=== PATIENT | male | born 1935 | race Caucasian/White ===

== ENCOUNTER 2016-12-29 04:50 | Inpatient (IN) | payer OTHER ==
[~2016-12-29] VITALS: Ht 188 cm; Wt 91.2 kg
[~2016-12-29 04:50] MED LIST: ACET-1087 PO; ASPI-1093 PO; ATI.5 PO; DONE5TAB2 PO; FERR-193 PO; IBUP-974 PO; MEMA10TA PO; PANT40EC PO; POTA10TA10 PO; SACC250C4 PO; SULF-58 PO; ZYL300 PO; [UNRECOGNIZED DRUG - CODE] PO
--- NOTE | 2016-12-29 04:50 | NUR ---
Patient was BIBA and taken to bed 04 via gurney per EMS.
[2016-12-29] MEDS ORDERED: NACL 0.9% 1,000 ML IV ONE ×2 (05:05→05:40)
--- NOTE | 2016-12-29 05:32 | NUR ---
PATIENT JC FROM [facility] PRESENTS TO ED WITH N/V/D . [facility] REPORTS NUMEROUS PATIENTS WITH N/V/D SINCE EARLY THIS MORNING . SKIN IS PINK/WARM/DRY; AAOX4 WITH EVEN AND STEADY GAIT; LUNGS CLEAR BL; HR EVEN AND REGULAR; PT DENIES ANY FEVER, CP, SOB, OR COUGH AT THIS TIME; PATIENT STATES PAIN OF 0/10 AT THIS TIME; VSS; PATIENT POSITIONED FOR COMFORT; HOB ELEVATED; BEDRAILS UP X2; BED DOWN. ER MD MADE AWARE OF PT STATUS.
[2016-12-29 05:34] VITALS: BP 137/57
[2016-12-29 05:38] LABS: HEMATOCRIT 39.3 % (36-52); HEMOGLOBIN 13.1 g/dL (12.0-18.0); MEAN CORPUSCULAR HEMOGLOBIN 32 pg (27-31); MEAN CORPUSCULAR HGB CONC 33 g/dL (33-37); MEAN CORPUSCULAR VOLUME 97 fL (80-94); PLATELET COUNT (AUTO) 228 K/uL (140-450); RED BLOOD CELL COUNT(AUTO) 4.07 MIL/uL (4.20-6.10); RED CELL DISTRIBUTION WIDTH 14.3 % (11.6-13.7); WHITE BLOOD COUNT (AUTO) 9.4 K/uL (4.8-10.8)
[2016-12-29] MEDS ORDERED: ONDANSETRON 4 MG/2 ML VIAL IVP ONE (05:40)
[2016-12-29] MEDS ORDERED: KETOROLAC 30 MG/ML VIAL IVP ONE (05:40)
[2016-12-29 06:01] LABS: ANION GAP 12.3 (8-16); CARBON DIOXIDE 26.9 mmol/L (21-32); CHLORIDE 103 mmol/L (98-107); CREATININE 1.3 mg/dL (0.6-1.3); GLUCOSE 128 mg/dL (74-106); POTASSIUM 4.2 mmol/L (3.5-5.1); SODIUM SERUM 138 mmol/L (136-145); UREA NITROGEN, BLOOD 26 mg/dL (7-18)
[2016-12-29 06:07] LABS: ALANINE AMINOTRANSFERASE 21 U/L (12-78); ALBUMIN 3.1 g/dL (3.4-5.0); ALKALINE PHOSPHATASE 102 U/L (46-116); ASPARTATE AMINOTRANSFERASE 15 U/L (15-37); TOTAL BILIRUBIN 0.4 mg/dL (0.0-1.0); TOTAL PROTEIN, SERUM 6.9 g/dL (6.4-8.2)
[2016-12-29 06:13] LABS: BAND % (MANUAL) 9 % (0-8); MONOCYTES % (MANUAL) 6 % (5-12)
[2016-12-29 06:15] LABS: INR 1.1 (0.8-1.2); PARTIAL THROMBOPLASTIN TIME 24.3 secs (22-35.6); PROTHROMBIN TIME 10.3 secs (10.8-13.4)
[2016-12-29 06:16] LABS: EOSINOPHILS % (MANUAL) 2 % (0-4); LYMPHOCYTES % (MANUAL) 6 % (20-46); NEUTROPHILS % (MANUAL) 77 (43-65)
[2016-12-29 06:17] LABS: LACTIC ACID 1.1 mmol/L (0.4-2.0)
[2016-12-29 06:18] LABS: PLATELET ESTIMATE ADEQUATE
[2016-12-29 06:22] LABS: APPEARANCE,URINE SL CLOUDY (CLEAR); BILIRUBIN,URINE NEGATIVE (NEGATIVE); BLOOD, URINE 2+ (NEGATIVE); COLOR,URINE YELLOW (YELLOW); LEUKOCYTE ESTERASE ,URINE 2+ (NEGATIVE); NITRITE, URINE POSITIVE (NEGATIVE); PROTEIN,URINE TRACE (NEGATIVE); UGLUCOSE NEGATIVE (NEGATIVE); UROBILINOGEN,URINE 0.2 EU/dL (0.2 - 1)
[2016-12-29 06:32] LABS: RBC,URINE 3-10 (FEW) /HPF (0-5)
[2016-12-29 06:33] LABS: BACTERIA,URINE 1+ /HPF (None Seen); WBC,URINE >25 (MANY) /HPF (0-5)
[2016-12-29 06:35] LABS: SQUAMOUS EPITHELIAL CELL,UR 0-3 (FEW) /LPF (0-3 (FEW))
[2016-12-29] MEDS ORDERED: LEVOFLOXACIN 500 MG/D5W PREMIX 100 ML IV ONE (06:40)
[2016-12-29] MEDS ORDERED: ASPIRIN 81 MG TAB.CHEW PO ONE (06:45)
[2016-12-29] MEDS ORDERED: HYDROcodone/APAP 5/325 MG 1 TAB TAB PO PRN (06:55)
[2016-12-29] MEDS ORDERED: DOCUSATE SODIUM 100 MG GELCAP PO PRN (06:55)
[2016-12-29] MEDS ORDERED: ACETAMINOPHEN 325 MG TAB PO PRN (06:55)
[2016-12-29] MEDS ORDERED: MORPHINE SULFATE 2 MG/ML SYR IVP PRN (06:55)
--- NOTE | 2016-12-29 07:07 | NUR ---
ATTEMPTED TO GIVE REPORT. CHARGE NURSE STATED THAT THEY ARE COUNTING AND WILL CALL BACK FOR REPORT WHEN FINISHED.
--- NOTE | 2016-12-29 07:16 | NUR ---
Patient will be admitted to care of DR. MONREAL. Admited to TELEMETRY. Will go to room 119B. Belongings list completed. Report to ANGEL RAGLAND.
--- NOTE | 2016-12-29 07:17 | NUR ---
Pt report given to ANGEL COREAS. Transfer of care at this time.
--- NOTE | 2016-12-29 07:22 | NUR ---
PT IS NOT HERE YET. GAVE REPORT TO AZAR ORTIZ.
--- NOTE | 2016-12-29 07:24 | NUR ---
patient transferd to TELE bed 119B via zeke, on tele monitor, with EMT, and RN. Report was given to the accepting nurse by Aby ORTIZ from night worker. Addendum: 12/29/16 at 0728 by RENAN accepting RN is Zay
[2016-12-29 07:29] LABS: AMPHETAMINE, URINE NEG. ng/ml (NEG <=1000); BARBITURATE, URINE NEG. ng/ml (NEG <=200); BENZODIAZEPINE, URINE NEG. ng/mL (NEG <=200); CANNABINOID, URINE NEG. ng/mL (NEG <=50); CHOL/HDL RATIO 2.8 (1-4.5); COCAINE, URINE NEG. ng/mL (NEG <=300); MAGNESIUM 1.9 mg/dL (1.8-2.4); OPIATE, URINE NEG. ng/mL (NEG <=2000); PHENCYCLIDINE SCREEN,URINE NEG. ng/mL (NEG <=25)
[2016-12-29] MEDS ORDERED: PANTOPRAZOLE 40 MG TABEC PO SCH (07:29)
--- NOTE | 2016-12-29 08:00 | NUR ---
PATIENT ARRIVED ON THE UNIT. PATIENT IS ALERT AND AWAKE, CONFUSED, NEEDS RE-ORIENTATION WITHIN 3 MINUTES. RESPIRATORY STATUS OK ON ROOM AIR. NO RESPIRATORY DISTRESS NOTED. DENIES PAIN. WILL DEVELOP AND IMPLEMENT PLAN OF CARE.
[2016-12-29 08:55] LABS: FREE T4 (FREE THYROXINE) 1.01 ng/dL (0.76-1.46); THYROID STIMULATING HORMONE 4.81 uIU/mL (0.34-3.76)
--- NOTE | 2016-12-29 10:00 | NUR ---
PATIENT WITH BOUT OF EMESIS. THREW UP CONTENTS OF THIS MORNINGS BREAKFAST.
--- NOTE | 2016-12-29 11:30 | NUR ---
NEW IV ACCESS STARTED. PATIENT FOUND SITTING IN BED WITH IV CATHETER OUT AND INTACT.
[2016-12-29] MEDS: ONDANSETRON 4 MG/2 ML VIAL IVP PRN ×2 (11:55→20:47)
--- NOTE | 2016-12-29 12:30 | NUR ---
PATIENT FOUND AMBULATING WITH STEADY GATE TO RESTROOM. INSTRUCTED PATIENT TO CALL. PATIENT FORGETFULL. PLACED BACK TO BED AND BED ALARM SET. WILL CLOSELY MONITOR.
[2016-12-29] MEDS: NACL 0.9% 1,000 ML IV SCH ×2 (13:00→23:51)
--- NOTE | 2016-12-29 13:00 | NUR ---
PATIENT'S DAUGHTER DONA CALLED FOR UPDATE. ASKED PATIENT IF I COULD GIVE HER INFORMATION. PATIENT AGREED. CONTACT NUMBER FOR DAUGHTER IS
[2016-12-29] MEDS ORDERED: CLINICAL MONITORING MC PRN (13:10)
[2016-12-29] MEDS ORDERED: LORazepam 0.5 MG TAB PO PRN (14:00)
[2016-12-29] MEDS ORDERED: MEMANTINE 10 MG TAB PO SCH (14:15)
[2016-12-29] MEDS ORDERED: LISINOPRIL 10 MG TAB PO SCH (14:16)
[2016-12-29] MEDS ORDERED: FERROUS SULFATE 325 MG TABEC PO SCH (14:16)
[2016-12-29] MEDS ORDERED: DONEPEZIL 10 MG TAB PO SCH (14:18)
[2016-12-29] MEDS ORDERED: ALLOPURINOL 300 MG TAB PO SCH (14:19)
[2016-12-29] MEDS: LEVOFLOXACIN 750 MG/D5W PREMIX 150 ML IV SCH (14:53)
[2016-12-29] MEDS: ATORVASTATIN 20 MG TAB PO SCH ×2 (14:59→21:14)
[2016-12-29 16:00] VITALS: BP 145/67
--- NOTE | 2016-12-29 16:39 | NUR ---
DR. GONZALEZ UPDATED WITH NEW TROPONIN RESULTS. ALSO MADE AWARE OF NEED FOR SITTER.
[2016-12-29] MEDS ORDERED: LACTOBACILLUS RHAMNOSUS GG 1 EACH CAP PO SCH (17:00)
--- NOTE | 2016-12-29 17:05 | NUR ---
SON JUVENTINO VISITED PATIENT AT BEDSIDE. UPDATED WITH PLAN OF CARE. HYGIENE CARE PROVIDED BY EMPLOYMENT PROGRAMS ANALYST'S. BRUISE NOTED ON LEFT THIGH. SKIN INTACT.
[2016-12-29] MEDS: POTASSIUM CHLORIDE 10 MEQ TABER PO SCH (17:33)
[2016-12-29] MEDS: METOPROLOL 25 MG TAB PO SCH (17:33)
[2016-12-29] MEDS: CALCIUM CARBONATE 500 MG TAB PO SCH (17:34)
--- NOTE | 2016-12-29 17:35 | NUR ---
BEDSIDE ULTRASOUND BEING PERFORMED.
--- NOTE | 2016-12-29 17:45 | NUR ---
DR. LOPEZ ROUNDING ON PATIENT. EVALUATED AT BEDSIDE.
--- NOTE | 2016-12-29 18:04 | NUR ---
EKG BEING PERFORMED.
--- NOTE | 2016-12-29 18:05 | NUR ---
EKG HELD AT THIS TIME, PATIENT WAS VOMITING, RN WAS AT BEDSIDE AND NOTED
--- NOTE | 2016-12-29 18:30 | NUR ---
PATIENT WITH 600 OUTPUT OF LIQUID YELLOW EMESIS. PATIENT AND LINENS CLEANED. EKG TO BE DONE.
--- NOTE | 2016-12-29 18:59 | NUR ---
PATIENT SLEEPING COMFORTABLY IN BED. NO DISTRESS NOTED. WILL ENDORSE CARE TO NOC SHIFT RN.
--- NOTE | 2016-12-29 19:12 | NUR ---
REPORT GIVEN TO MAXIME ORTIZ. SON JUVENTINO AT BEDSIDE. NOTIFIED PAPERS NEED TO BE SIGNED. STATED WOULD GO TO ADMITTING.
--- NOTE | 2016-12-29 19:13 | NUR ---
RECD. RESTING IN BED, AWAKE, A/OX2. RESPIRATION EVEN AND UNLABORED. IV OF NS AT 100 ML/HR INFUSING RIGHT FOREARM G22. REORIENTED TO HOSPITAL SETTING. ABDOMEN WITH SOME DISTENTION, FAINT BOWEL SOUNDS NOTED ON ALL QUADRANTS. FALL RISK, SAFETY MEASURES ENFORCED. SON JUVENTINO CAME AND SPOKE WITH PATIENT. REQUESTED TO WATER TO DRINK. WITH OCCASIONAL HICCUP NOTED. PLAN OF CARE FOR THE SHIFT DISCUSSED WITH PATIENT AND SON, VERBALIZED UNDERSTANDING. DENIES PAIN 0/10.
--- NOTE | 2016-12-29 19:30 | NUR ---
ADMITTING STAFF, HOME BAUER. SON SIGNED PATIENT'S RIGHTS PAPER.
--- NOTE | 2016-12-29 19:45 | NUR ---
SON LEFT. ASSISTED PATIENT TO AMBULATE TO GO AN BR TO VOID, GAIT STEADY. NOTED SOME PASTY BM ON THE PAD. CLEANSED PATIENT AND MADE COMFORTABLE IN BED.
[2016-12-29 20:00] VITALS: BP 104/73
--- NOTE | 2016-12-29 20:00 | NUR ---
Patient's Plan of Care was discussed and reviewed with BOW REHAIRER: MAXIME MART
[2016-12-29] MEDS: CLINDAMYCIN 600 MG in DEXTROSE 5% 50 ML IV SCH (20:05)
--- NOTE | 2016-12-29 20:15 | NUR ---
REQUESTED FOR WATER TO DRINK EVERY 5 MINUTES. 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 OPENED TV TO BE ABLE TO WATCH SHOW, DOES NOT PREFERRED ANY SHOW.
--- NOTE | 2016-12-29 20:47 | NUR ---
PT VOMITED 200 ML EMESIS AFTER TRYING TO EAT JELLO. MEDICATED PT WITH ZOFRAN PER MD ORDER. PT TOLERATED WELL.
[2016-12-29] MEDS: MEMANTINE 10 MG TAB PO SCH (21:14)
--- NOTE | 2016-12-29 21:14 | NUR ---
NO N/V NOTED, DUE PO MEDICATIONS FOR THE NIGHT GIVEN, TOLERATED WELL.
[2016-12-29] MEDS: DONEPEZIL 10 MG TAB PO SCH (21:15)
[2016-12-29] MEDS: PRAZOSIN 1 MG CAP PO SCH (21:15)
--- NOTE | 2016-12-29 21:20 | NUR ---
ASSISTED OUT OF BED TO GO TO BR TO VOID, NOTED SMALL AMOUNT OF LOOSE BM ON THE PAD. BACK TO BED AFTER VOIDING. SAFETY MAINTAINED.
--- NOTE | 2016-12-29 22:10 | NUR ---
ASSISTED OUT OF BED TO GO TO BR, HAD LARGE LOOSE BM, DARK BROWNISH GREEN COLOR. CLEANSED AND ASSISTED BACK TO BED.
--- NOTE | 2016-12-29 22:30 | NUR ---
REQUESTED FOR WATER AND THEN WENT TO SLEEP.
--- NOTE | 2016-12-29 22:41 | NUR ---
RESULT OF TROPONIN AT 2120 BLOOD DRAW - TREND DOWN FROM 0.031 TO 0.027.
--- NOTE | 2016-12-29 23:00 | NUR ---
WOKE UP AND SITS ON THE BED FOR A WHILE THEN GOES BACK TO LAY IN BED AGAIN.
[2016-12-30] VITALS: BP 138/66
--- NOTE | 2016-12-30 01:58 | NUR ---
INSERTED NEW IV LINE TO ANTERIOR RT FA 22G PATENT, ASYMPTOMATIC, INTACT. PT TOLERATED WELL. NO SOB, NO SIGNS OF DISTRESS. PLAN OF CARE DISCUSSED WITH PT. SAFETY MEASURES IN PLACE. CALL LIGHT WITHIN REACH. WILL CONTINUE TO MONITOR.
--- NOTE | 2016-12-30 02:00 | NUR ---
ASSISTED OUT OF BED TO TO BR TO VOID, NOTED SMALL AMOUNT OF LOOSE BM ON THE PADS. CLEANSED AND REPOSITION IN BED FOR COMFORT.
[2016-12-30 04:00] VITALS: BP 120/52
--- NOTE | 2016-12-30 04:00 | NUR ---
SLEEPING COMFORTABLY IN BED.
[2016-12-30] MEDS: CLINDAMYCIN 600 MG in DEXTROSE 5% 50 ML IV SCH ×3 (04:29→20:36)
--- NOTE | 2016-12-30 05:30 | NUR ---
APPLIED BILATERAL LEG SEQUENTIALS ORDERED.
--- NOTE | 2016-12-30 06:10 | NUR ---
SON JUVENTINO CAME TO SAY HI TO HIS DAD. LEFT AFTER 3 MINUTES.
--- NOTE | 2016-12-30 06:20 | NUR ---
HAD MODERATE AMOUNT OF DIARRHEA ON THE PAD, CLEANSED, GOWN CHANGED. MADE COMFORTABLE IN BED. NEW SITTER AT THE BEDSIDE TO MONITOR PATIENT.
[2016-12-30] MEDS: PANTOPRAZOLE 40 MG TABEC PO SCH (06:37)
[2016-12-30 06:46] LABS: HEMATOCRIT 34.1 % (36-52); HEMOGLOBIN 11.4 g/dL (12.0-18.0); WHITE BLOOD COUNT (AUTO) 6.6 K/uL (4.8-10.8)
[2016-12-30 06:47] LABS: BASOPHILS % (AUTO) 0.7 % (0.0-2.0); EOSINOPHILS # (AUTO) 0.1 K/uL (0-0.4); EOSINOPHILS % (AUTO) 0.9 % (0.0-4.0); LYMPHOCYTES # (AUTO) 0.7 K/uL (2.0-11.5); LYMPHOCYTES % (AUTO) 10.8 % (20.5-51.1); MEAN CORPUSCULAR HEMOGLOBIN 32 pg (27-31); MEAN CORPUSCULAR HGB CONC 33 g/dL (33-37); MEAN CORPUSCULAR VOLUME 98 fL (80-94); MONOCYTES # (AUTO) 0.7 K/uL (0.8-1.0); MONOCYTES % (AUTO) 10.7 % (1.7-9.3); NEUTROPHILS # (AUTO) 5.1 K/uL (1.8-7.7); NEUTROPHILS % (AUTO) 76.9 % (42.2-75.2); PLATELET COUNT (AUTO) 200 K/uL (140-450); RED CELL DISTRIBUTION WIDTH 14.2 % (11.6-13.7)
--- NOTE | 2016-12-30 07:10 | NUR ---
RECEIVE REPORT FROM THE BARBER APPRENTICE NURSE AT BEDSIDE FOR CONTINUITY OF CARE. PT IS SLEEPING. WILL BE BACK TO ASSESS PT. NOTED R FA 22G NS AT 100ML. ALL SAFETY MEASURES IN PLACE.
--- NOTE | 2016-12-30 07:10 | NUR ---
CONDITION REMAIN STABLE. SAFETY MAINTAINED DURING SHIFT. NEW SITTER MONITORING PATIENT. ENDORSED TO ANGEL PHAM FOR CONTINUITY OF CARE.
[2016-12-30 07:14] LABS: ANION GAP 11.6 (8-16); CALCIUM 7.4 mg/dL (8.5-10.1); CARBON DIOXIDE 25.2 mmol/L (21-32); CHLORIDE 104 mmol/L (98-107); CREATININE 1.4 mg/dL (0.6-1.3); GLUCOSE 113 mg/dL (74-106); POTASSIUM 3.8 mmol/L (3.5-5.1); SODIUM SERUM 137 mmol/L (136-145); UREA NITROGEN, BLOOD 31 mg/dL (7-18)
[2016-12-30 07:31] LABS: MAGNESIUM 1.7 mg/dL (1.8-2.4); PHOSPHORUS 3.3 mg/dL (2.5-4.9)
--- NOTE | 2016-12-30 07:42 | NUR ---
PATIENT HAS BEEN SCREENED AND CATEGORIZED MODERATE NUTRITION RISK. PATIENT WILL BE SEEN WITHIN 3-5 DAYS OF ADMISSION. 12/31/16-01/02/[address]
--- NOTE | 2016-12-30 07:50 | NUR ---
PT IS IN BED. AWAKE. I INTRODUCED MYSELF AN UPDATED THE BOARD. PT IS A BIT HARD OF HEARING. PT'S SOME TIMES CLEAR AND AT TIMES GARBLED. UNABLE TO UNDERSTAND. NOTED THE L HIP BRUISE. NOTED THE R FA 22G IV. NS RUNNING AT 100ML. THE SITTER/EXPLOSIVES OPERATOR STATES THAT HE HAS BEEN HAVING REALLY LOOSE STOOLS. I WILL TALK TO . PT ALSO HAS NOW MAG LEVEL. SPOKE TO DR. GONZALEZ THIS MORNING. HE STATED HE PUT IN AN ORDER. I WILL KEEP CHECKING FOR ORDERS.
[2016-12-30 08:00] VITALS: BP 114/79
[2016-12-30] MEDS: PRAZOSIN 1 MG CAP PO SCH ×2 (08:42→20:37)
[2016-12-30] MEDS: ECOTRIN 81 MG TABEC PO SCH (08:42)
[2016-12-30] MEDS: CALCIUM CARBONATE 500 MG TAB PO SCH ×2 (08:42→17:55)
[2016-12-30] MEDS: POTASSIUM CHLORIDE 10 MEQ TABER PO SCH ×2 (08:42→17:55)
[2016-12-30] MEDS: METOPROLOL 25 MG TAB PO SCH ×2 (08:42→17:55)
[2016-12-30] MEDS: ALLOPURINOL 300 MG TAB PO SCH (08:43)
[2016-12-30] MEDS: LISINOPRIL 10 MG TAB PO SCH (08:43)
[2016-12-30] MEDS: MEMANTINE 10 MG TAB PO SCH ×2 (08:43→20:38)
[2016-12-30] MEDS: FERROUS SULFATE 325 MG TABEC PO SCH (08:44)
[2016-12-30] MEDS: LACTOBACILLUS RHAMNOSUS GG 1 EACH CAP PO SCH (08:44)
[2016-12-30] MEDS: DONEPEZIL 10 MG TAB PO SCH ×2 (08:48→20:37)
[2016-12-30] MEDS: NACL 0.9% 1,000 ML IV SCH ×2 (08:52→20:36)
--- NOTE | 2016-12-30 08:54 | NUR ---
ADMINISTERED ALL MORNING MEDS. PT TOLERATED WELL. I D/C'D HIS IV. RADIOLOGY WILL BE HERE TO TAKE HIM TO GET HIS CT DONE. WILL CONTINUE TO MONITOR PT.
[2016-12-30] MEDS ORDERED: MAGNESIUM OXIDE 400 MG TAB PO SCH (09:00)
--- NOTE | 2016-12-30 09:13 | NUR ---
RADIOLOGY JUST WHEELED HIM OUT.
--- NOTE | 2016-12-30 09:30 | NUR ---
PT IS BACK ON THE FLOOR. PT'S GOWN WAS SOILED. CHANGED HIM TO A FRESH GOWN. THE PARUL, SITTER IS ON HER BREAK. I ASSISTED HIM BACK TO BED, ADMINISTERED THE SCD'S. HE JUST FELL ASLEEP. P.T. WAS HERE BUT WILL BE BACK LATER SINCE HE IS ASLEEP. I WILL SIT HERE AND CHART UNTIL TWO WAY RADIO INSTALLER RETURNS.
--- NOTE | 2016-12-30 10:28 | NUR ---
Sadiq. IS HERE TO WORK WITH PT.
[2016-12-30 12:00] VITALS: BP 105/59
[2016-12-30] MEDS ORDERED: METOCLOPRAMIDE 10 MG/2 ML INJ VIAL IVP SCH (12:00)
--- NOTE | 2016-12-30 12:15 | NUR ---
EATING LUNCH. SITTER AT BEDSIDE. PT IS ALERT. NO SIGNS OF DISTRESS. NO COMPLAINTS AT THI TIME. WILL CONTINUE TO MONITOR PT.
--- NOTE | 2016-12-30 13:41 | NUR ---
PT SLEEPING SOUNDLY. SITTER AT BEDSIDE. NO SIGNS OF DISTRESS. NO COMPLAINTS. WILL CONTINUE TO MONITOR PT.
[2016-12-30] MEDS: LEVOFLOXACIN 750 MG/D5W PREMIX 150 ML IV SCH (14:06)
--- NOTE | 2016-12-30 15:00 | NUR ---
SITTER AT BEDSIDE. PT IS SLEEPING. NO SIGNS OF DISTRESS. WILL CONTINUE TO MONITOR PT.
[2016-12-30 16:00] VITALS: BP 126/60
--- NOTE | 2016-12-30 16:00 | NUR ---
ATE HIS DINNER. 50%. DIDN'T EAT MUCH HE NORMALLY DOES. PT IS HAVING VERY LOOSE, LIQUIDY BM. WILL CONTINUE TO MONITOR HIM.
--- NOTE | 2016-12-30 18:40 | NUR ---
HAD A MAJOR DIARRHEA EPISODE. ALL OVER THE FLOOR AND BATHROOM. MEDICAL IMAGING TECH AND EVS ALL CAME AND CLEANED UP. PT BACK IN BED ALL COMFORTABLE.
--- NOTE | 2016-12-30 18:45 | NUR ---
DR. LOPEZ HERE TO SEE PT.
--- NOTE | 2016-12-30 19:30 | NUR ---
ENDORSED PT TO THE PROMOTIONS TEAM LEADER NURSE AT BEDSIDE. SON IS VISITING. PT RESTING IN BED. PT IN STABLE CONDITION. REMINDED RN TO HAVE AM NURSE TALK TO DR. MONREAL ABOUT FREQUENT DIARRHEA.
--- NOTE | 2016-12-30 19:30 | NUR ---
RECEIVED REPORT FROM ANKIT ORTIZ AT BEDSIDE. PT IS ALERT AWAKE ORIENTED X1 WITH CONFUSION. INITIAL ASSESSMENT DONE. NO S/S OF RESPIRATORY DISTRESS OR SOB NOTED. NO C/O PAIN OR ANY DISCOMFORT AT THIS TIME. PLAN OF CARE REVIEWED TO PT AND FAMILY AT BEDSIDE AND VERBALIZED UNDERSTANDING. CALL LIGHT WITHIN REACH. WILL CONTINUE TO MONITOR.
[2016-12-30 20:00] VITALS: BP 118/63
[2016-12-30] MEDS: ATORVASTATIN 20 MG TAB PO SCH (20:37)
[2016-12-31] VITALS: BP 126/65
--- NOTE | 2016-12-31 00:10 | NUR ---
PT IS SLEEPING RIGHT NOW BUT EASILY AROUSABLE. NO S/S OF ANY DISCOMFORT AT THIS TIME. ALL NEEDS ARE ATTENDED. CALL LIGHT WITHIN REACH. WILL CONTINUE TO MONITOR.
[2016-12-31 04:00] VITALS: BP 123/67
--- NOTE | 2016-12-31 05:00 | NUR ---
AM CARE RENDERED. BED LINEN CHANGED. INSTRUCTED PT TO REPOSITION. KEPT CLEAN AND DRY. CALL LIGHT WITHIN REACH. WILL CONTINUE TO MONITOR.
[2016-12-31] MEDS: CLINDAMYCIN 600 MG in DEXTROSE 5% 50 ML IV SCH (05:03)
[2016-12-31] MEDS: NACL 0.9% 1,000 ML IV SCH ×2 (05:04→15:24)
[2016-12-31] MEDS: PANTOPRAZOLE 40 MG TABEC PO SCH (05:43)
[2016-12-31 06:00] LABS: BASOPHILS # (AUTO) 0.1 K/uL (0.00-0.22); BASOPHILS % (AUTO) 2.2 % (0.0-2.0); EOSINOPHILS # (AUTO) 0.1 K/uL (0-0.4); EOSINOPHILS % (AUTO) 1.3 % (0.0-4.0); HEMATOCRIT 35.9 % (36-52); LYMPHOCYTES # (AUTO) 1.5 K/uL (2.0-11.5); LYMPHOCYTES % (AUTO) 23.7 % (20.5-51.1); MEAN CORPUSCULAR HEMOGLOBIN 32 pg (27-31); MEAN CORPUSCULAR HGB CONC 33 g/dL (33-37); MEAN CORPUSCULAR VOLUME 97 fL (80-94); MONOCYTES # (AUTO) 0.9 K/uL (0.8-1.0); MONOCYTES % (AUTO) 14.6 % (1.7-9.3); NEUTROPHILS # (AUTO) 3.8 K/uL (1.8-7.7); NEUTROPHILS % (AUTO) 58.2 % (42.2-75.2); PLATELET COUNT (AUTO) 208 K/uL (140-450); RED CELL DISTRIBUTION WIDTH 14.5 % (11.6-13.7); WHITE BLOOD COUNT (AUTO) 6.4 K/uL (4.8-10.8)
[2016-12-31 06:25] LABS: ANION GAP 13.3 (8-16); CALCIUM 7.8 mg/dL (8.5-10.1); CARBON DIOXIDE 22.3 mmol/L (21-32); CHLORIDE 106 mmol/L (98-107); CREATININE 1.2 mg/dL (0.6-1.3); GLUCOSE 96 mg/dL (74-106); POTASSIUM 3.6 mmol/L (3.5-5.1); SODIUM SERUM 138 mmol/L (136-145); UREA NITROGEN, BLOOD 22 mg/dL (7-18)
[2016-12-31 06:33] LABS: MAGNESIUM 1.8 mg/dL (1.8-2.4); PHOSPHORUS 2.9 mg/dL (2.5-4.9)
--- NOTE | 2016-12-31 07:10 | NUR ---
PT HAS NO S/S OF ANY DISCOMFORT. PLAN OF CARE ENDORSED TO MANJINDER ORTIZ AT BEDSIDE FOR CONTINUITY OF CARE.
--- NOTE | 2016-12-31 07:11 | NUR ---
RECEIVED REPORT FROM ANGEL RAGLAND. PT IS SLEEPING BUT EASILY AWAKEN, AAO X2 WITH PERIODS OF CONFUSION,BRUISE ON LEFT HIP NOTED OTHERWISE SKIN INTACT, IV ON RIGHT FA PATENT AND INTACT INFUSING FLUID WELL. INITIAL ASSESSMENT DONE, NO S/S OF RESPIRATORY DISTRESS OR DISCOMFORT NOTED, DISCUSSED PLAN OF CARE. PT VERBALIZED UNDERSTANDING. SAFETY/FALL PRECAUTION ENFORCED, 1:1 SITTER AT BEDSIDE, CALL LIGHT WITHIN REACH, WILL CONTINUE TO MONITOR.
[2016-12-31 07:44] VITALS: BP 125/71
[2016-12-31] MEDS: MEMANTINE 10 MG TAB PO SCH ×2 (08:10→20:37)
[2016-12-31] MEDS: POTASSIUM CHLORIDE 10 MEQ TABER PO SCH ×2 (08:10→17:23)
[2016-12-31] MEDS: FERROUS SULFATE 325 MG TABEC PO SCH (08:10)
[2016-12-31] MEDS: LACTOBACILLUS RHAMNOSUS GG 1 EACH CAP PO SCH (08:10)
[2016-12-31] MEDS: ECOTRIN 81 MG TABEC PO SCH (08:11)
[2016-12-31] MEDS: ALLOPURINOL 300 MG TAB PO SCH (08:11)
[2016-12-31] MEDS: DONEPEZIL 10 MG TAB PO SCH ×2 (08:11→20:36)
[2016-12-31] MEDS: LISINOPRIL 10 MG TAB PO SCH (08:11)
[2016-12-31] MEDS: CALCIUM CARBONATE 500 MG TAB PO SCH ×2 (08:11→17:23)
[2016-12-31] MEDS: METOPROLOL 25 MG TAB PO SCH ×2 (08:11→17:24)
[2016-12-31] MEDS: METOCLOPRAMIDE 10 MG/2 ML INJ VIAL IVP SCH (08:12)
[2016-12-31] MEDS: PRAZOSIN 1 MG CAP PO SCH ×2 (08:12→20:36)
--- NOTE | 2016-12-31 08:15 | NUR ---
DUE MEDS GIVEN, PT TOLERATED WELL, CALL LIGHT WITHIN REACH, WILL CONTINUE TO MONITOR.
--- NOTE | 2016-12-31 11:10 | NUR ---
PT IS SLEEPING AT THIS TIME, NO S/S OF RESPIRATORY DISTRESS OR DISCOMFORT NOTED, CALL LIGHT WITHIN REACH, 1:1 SITTER AT BEDSIDE, WILL CONTINUE TO MONITOR.
[2016-12-31 12:00] VITALS: BP 113/62
[2016-12-31] MEDS: PIPER/TAZO 3.375GM/D5W PREMIX 50 ML IV SCH ×4 (12:26→23:39)
--- NOTE | 2016-12-31 13:12 | NUR ---
PT IS SLEEPING COMFORTABLY ON BED, NO S/S OF RESPIRATORY DISTRESS OR DISCOMFORT NOTED, 1:1 SITTER AT BEDSIDE, CALL LIGHT WITHIN REACH, WILL CONTINUE TO MONITOR.
--- NOTE | 2016-12-31 14:10 | NUR ---
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
--- NOTE | 2016-12-31 15:29 | NUR ---
PT IS SITTING ON THE EDGE OF THE BED, BEHAVIORAL HEALTH ASSOCIATE AT BEDSIDE ASSISTING PT. NO S/S OF RESPIRATORY DISTRESS OR DISCOMFORT NOTED, CALL LIGHT WITHIN REACH, WILL CONTINUE TO MONITOR.
[2016-12-31 16:00] VITALS: BP 121/53
--- NOTE | 2016-12-31 17:41 | NUR ---
DINNER SERVED PT HAS GOOD APPETITE, ALL NEEDS MET AT THIS TIME, 1:1 SITTER AT BEDSIDE ASSISTING PT. CALL LIGHT WITHIN REACH, WILL CONTINUE TO MONITOR.
--- NOTE | 2016-12-31 19:10 | NUR ---
ENDORSED PT TO ANGEL RIZZO FOR CONTINUITY OF CARE. PT IS STABLE AT THIS TIME.
--- NOTE | 2016-12-31 19:11 | NUR ---
RECEIVED PT IN STABLE CONDITION FROM ANGEL DUNBAR. NO SOB, NO SIGNS OF DISTRESS. PT IS AOX2, CONFUSED AND FORGETFUL. VS STABLE ON ROOM AIR. IV TO RT FA 22G PATENT, ASYMPTOMATIC, INTACT, IVF RUNNING. PT DENIES PAIN AT THIS TIME. EDUCATED PT THAT WE NEED A STOOL SAMPLE FOR LAB, PT VERBALIZED UNDERSTANDING, PARUL BREWSTER MADE AWARE. SKIN IS INTACT, BRUISE TO LT HIP. PLAN OF CARE DISCUSSED WITH PT. SAFETY MEASURES IN PLACE. SCDS IN PLACE. CALL LIGHT WITHIN REACH. WILL CONTINUE TO MONITOR.
[2016-12-31 20:00] VITALS: BP 105/62
--- NOTE | 2016-12-31 20:00 | NUR ---
MD LOPEZ TO SEE PT, STATED TO DC FLUIDS.
[2016-12-31] MEDS: ATORVASTATIN 20 MG TAB PO SCH (20:36)
[2016-12-31] MEDS: SULFAMETH/TRIMETH DS 800/160MG 1 TAB PO SCH (20:38)
--- NOTE | 2016-12-31 20:38 | NUR ---
PT TOLERATED DUE MEDS WELL. NO SOB, NO SIGNS OF DISTRESS. PT DENIES PAIN AT THIS TIME. IV SITE ASYMPTOMATIC, INTACT, PATENT, IVPB RUNNING. PLAN OF CARE DISCUSSED WITH PT. SAFETY MEASURES IN PLACE. CALL LIGHT WITHIN REACH. WILL CONTINUE TO MONITOR.
[2017-01-01] VITALS: BP 118/59
--- NOTE | 2017-01-01 00:05 | NUR ---
VS STABLE ON ROOM AIR. NO SOB, NO SIGNS OF DISTRESS. PT DENIES PAIN AT THIS TIME. PLAN OF CARE DISCUSSED WITH PT. SAFETY MEASURES IN PLACE. CALL LIGHT WITHIN REACH. WILL CONTINUE TO MONITOR.
--- NOTE | 2017-01-01 02:37 | NUR ---
PT ASLEEP IN BED. NO SOB, NO SIGNS OF DISTRESS. IV SITE ASYMPTOMATIC, INTACT, SALINE LOCKED. SAFETY MEASURES IN PLACE. CALL LIGHT WITHIN REACH. WILL CONTINUE TO MONITOR.
[2017-01-01 04:00] VITALS: BP 117/55
--- NOTE | 2017-01-01 04:23 | NUR ---
VS STABLE ON ROOM AIR. NO SOB, NO SIGNS OF DISTRESS. PT DENIES PAIN AT THIS TIME. PT CONFUSED AND TRYING TO GET OUT OF BED, REORIENTED PT. IV SITE ASYMPTOMATIC, INTACT, SALINE LOCKED. PLAN OF CARE DISCUSSED WITH PT. SAFETY MEASURES IN PLACE. CALL LIGHT WITHIN REACH. WILL CONTINUE TO MONITOR.
[2017-01-01] MEDS: PIPER/TAZO 3.375GM/D5W PREMIX 50 ML IV SCH ×3 (05:57→17:01)
[2017-01-01 06:15] LABS: BASOPHILS # (AUTO) 0.2 K/uL (0.00-0.22); BASOPHILS % (AUTO) 1.8 % (0.0-2.0); EOSINOPHILS # (AUTO) 0.2 K/uL (0-0.4); EOSINOPHILS % (AUTO) 2.2 % (0.0-4.0); HEMATOCRIT 34.8 % (36-52); HEMOGLOBIN 11.1 g/dL (12.0-18.0); LYMPHOCYTES # (AUTO) 1.2 K/uL (2.0-11.5); MEAN CORPUSCULAR HEMOGLOBIN 31 pg (27-31); MEAN CORPUSCULAR HGB CONC 32 g/dL (33-37); MEAN CORPUSCULAR VOLUME 98 fL (80-94); MONOCYTES % (AUTO) 10.8 % (1.7-9.3); NEUTROPHILS # (AUTO) 6.7 K/uL (1.8-7.7); NEUTROPHILS % (AUTO) 72.2 % (42.2-75.2); PLATELET COUNT (AUTO) 184 K/uL (140-450); RED BLOOD CELL COUNT(AUTO) 3.54 MIL/uL (4.20-6.10); RED CELL DISTRIBUTION WIDTH 14.3 % (11.6-13.7); WHITE BLOOD COUNT (AUTO) 9.3 K/uL (4.8-10.8)
[2017-01-01] MEDS: PANTOPRAZOLE 40 MG TABEC PO SCH (06:22)
[2017-01-01 06:48] LABS: ALBUMIN 2.6 g/dL (3.4-5.0); MAGNESIUM 1.7 mg/dL (1.8-2.4); PHOSPHORUS 3.1 mg/dL (2.5-4.9)
[2017-01-01 07:14] LABS: ANION GAP 12.6 (8-16); CALCIUM 7.4 mg/dL (8.5-10.1); CARBON DIOXIDE 22.6 mmol/L (21-32); CHLORIDE 105 mmol/L (98-107); CREATININE 1.2 mg/dL (0.6-1.3); GLUCOSE 96 mg/dL (74-106); POTASSIUM 3.2 mmol/L (3.5-5.1); SODIUM SERUM 137 mmol/L (136-145); UREA NITROGEN, BLOOD 16 mg/dL (7-18)
--- NOTE | 2017-01-01 07:24 | NUR ---
ENDORSED PT IN STABLE CONDITION TO DARI Enrique RN. ALL NEEDS HAVE BEEN MET AT THIS TIME.
--- NOTE | 2017-01-01 07:25 | NUR ---
RECEIVED PT IN BED. ALERT, AWAKE, ORIENTEDX2. BREATHING EVEN AND UNLABORED. DENIES ANY PAIN OR DISCOMFORT AT THIS TIME. POSITIVE BOWEL SOUNDS UPON AUSCULTATION NOTED. PT AMBULATORY WITH ASSIST. NEEDS ATTENDED.
--- NOTE | 2017-01-01 07:26 | NUR ---
ADDITIONAL: SAFETY MEASURES IN PLACE. CALL LIGHT WITHIN REACH.
[2017-01-01 08:00] VITALS: BP 130/67
[2017-01-01] MEDS: METOPROLOL 25 MG TAB PO SCH ×2 (08:00→16:57)
[2017-01-01] MEDS: CALCIUM CARBONATE 500 MG TAB PO SCH ×2 (08:27→16:56)
[2017-01-01] MEDS: ALLOPURINOL 300 MG TAB PO SCH (08:27)
[2017-01-01] MEDS: ECOTRIN 81 MG TABEC PO SCH (08:27)
[2017-01-01] MEDS: METOCLOPRAMIDE 10 MG/2 ML INJ VIAL IVP SCH (08:27)
[2017-01-01] MEDS: FERROUS SULFATE 325 MG TABEC PO SCH (08:27)
[2017-01-01] MEDS: DONEPEZIL 10 MG TAB PO SCH ×2 (08:28→21:15)
[2017-01-01] MEDS: SULFAMETH/TRIMETH DS 800/160MG 1 TAB PO SCH ×2 (08:28→21:14)
[2017-01-01] MEDS: PRAZOSIN 1 MG CAP PO SCH ×2 (08:29→21:15)
[2017-01-01] MEDS: LISINOPRIL 10 MG TAB PO SCH (08:29)
[2017-01-01] MEDS: LACTOBACILLUS RHAMNOSUS GG 1 EACH CAP PO SCH (08:29)
[2017-01-01] MEDS: MEMANTINE 10 MG TAB PO SCH ×2 (08:29→21:15)
[2017-01-01] MEDS: POTASSIUM CHLORIDE 10 MEQ TABER PO SCH ×2 (08:35→16:57)
[2017-01-01] MEDS ORDERED: MAGNESIUM OXIDE 400 MG TAB PO SCH (09:30)
[2017-01-01] MEDS ORDERED: POTASSIUM CHLORIDE 10 MEQ TABER PO SCH (09:30)
[2017-01-01 12:00] VITALS: BP 111/57
--- NOTE | 2017-01-01 12:16 | NUR ---
SS NOTE: I SPOKE WITH PT'S SON, JUVENTINO REGARDING PT REQUIRING SHORT TERM SNF PLACEMENT FOR IV ABX AND PT. HE STATED THAT HE IS IN AGREEMENT WITH PT GOING TO SNF AND WOULD PREFER PT TO GO TO A SNF IN THE [facility]. PER NIC FROM [facility], NO MALE ISO BEDS AVAILABLE PER ADAN FROM [facility] ([phone]), THEY ARE ABLE TO ACCEPT PT. SHE ALSO STATED THAT PT CAN GO TO ROOM [address] Sherman GIBBONS WHEN PT IS READY FOR DISCHARGE. Addendum: 01/01/17 at 1310 by Evelyne Motley SS ADAN FROM [facility] ALSO MADE AWARE OF PT'S CONTACT ISO NEEDS.
--- NOTE | 2017-01-01 13:12 | NUR ---
SS NOTE: I SPOKE WITH PT'S SON, JUVENTINO AND MADE HIM AWARE OF PT'S ACCEPTANCE AT [facility] ([phone]). I PROVIDED HIM WITH THEIR CONTACT INFORMATION AND HE STATED THAT HE WILL PICK PT UP UPON DISCHARGE AND TAKE HIM THERE.
[2017-01-01] MEDS ORDERED: metroNIDAZOLE 500 MG TAB PO SCH (13:16)
--- NOTE | 2017-01-01 14:57 | NUR ---
01/01/17 RD INITIAL ASSESSMENT COMPLETED PLEASE REFER TO NUTRITION ASSESSMENT UNDER CARE ACTIVITY FOR ESTIMATED NUTRITIONAL NEEDS. RD RECOMMENDATIONS: 1. CONTINUE CARDIAC DIET TOLERATED 2. INCREASE PROTEIN NEEDS FOR DIVERTICULOSIS. --PT MEETING 76% OF ESTIMATED PROTEIN NEEDS. 3. INCREASE FLUID NEEDS FOR DIARRHEA. 4. RD WILL F/U 3-5 DAYS; MODERATE RISK. OTONIEL CADENA, RD
[2017-01-01 16:00] VITALS: BP 114/61
--- NOTE | 2017-01-01 16:00 | NUR ---
PT IN BED. ALERT AWAKE, ORIENTED X2, WITH PERIODS OF CONFUSION, AMBULATES WITH ASSIST GOING TO THE BATHROOM, DENIES ANY PAIN OR DISCOMFORT AT THIS TIME. FREQUENT VISUAL CHECKS DONE
[2017-01-01] MEDS: metroNIDAZOLE 500 MG TAB PO SCH (16:58)
--- NOTE | 2017-01-01 19:25 | NUR ---
ENDORSED TO NEXT SHIFT NURSE. PT ON STABLE CONDITION. PT KEPT CLEAN DRY AND COMFORTABLE.NEEDS ATTENDED.
--- NOTE | 2017-01-01 19:25 | NUR ---
RECEIVED REPORT FROM DAY RN FOR CONTINUITY OF CARE. PATIENT IS A&OX2, DISCUSSED PLAN OF CARE WITH PATIENT, ABLE TO VERBALIZE UNDERSTANDING, REINFORCEMENT NEEDED. SHIFT ASSESSMENT DONE, VS TAKEN, STABLE. NO S/S OF RESPIRATORY DISTRESS NOTED ON ROOM AIR. PATIENT DENIES PAIN AT THIS TIME. PT HAS BRUISE TO LEFT HIP. IV TO RT FA 22 GAUGE PATENT AND INTACT. SAFETY/FALL/ CONTACT PRECAUTIONS ENFORCED. CALL LIGHT PLACED WITHIN REACH. WILL CONTINUE TO MONITOR.
[2017-01-01 20:00] VITALS: BP 132/64
[2017-01-01] MEDS: ATORVASTATIN 20 MG TAB PO SCH (21:15)
--- NOTE | 2017-01-01 21:15 | NUR ---
DUE MEDICATIONS ADMINISTERED, TOLERATED WELL. NO S/S OF DISTRESS OR DISCOMFORT NOTED AT THIS TIME. WILL CONTINUE TO MONITOR.
--- NOTE | 2017-01-01 22:00 | NUR ---
PATIENT REMOVED IV TO RT FOREARM, CANNULA INTACT. NEW IV INSERTED TO RT HAND AND WRAPPED WITH DURGA PT IS CONFUSED AND GETTING OUT OF BED. REORIENTED PATIENT TO ROOM AND GOT HIM BACK INTO BED. WILL CONTINUE TO MONITOR.
[2017-01-02] VITALS: BP 94/38
[2017-01-02] MEDS: PIPER/TAZO 3.375GM/D5W PREMIX 50 ML IV SCH ×4 (00:16→17:05)
--- NOTE | 2017-01-02 00:16 | NUR ---
DUE ANTIBIOTICS ADMINISTERED, NO REACTION NOTED. VS TAKEN, STABLE.
--- NOTE | 2017-01-02 01:39 | NUR ---
PT REMOVED IV TO RT HAND CANNULA INTACT. WILL INSERT NEW IV. NO S/S OF DISTRESS NOTED.
--- NOTE | 2017-01-02 03:56 | NUR ---
VS TAKEN, STABLE. NEW IV LINE INSERTION TO RT WRIST 22 GAUGE PATENT AND FLUSHED, WRAPPED WITH INGE DRESSING.
[2017-01-02 04:00] VITALS: BP 128/58
[2017-01-02] MEDS: PANTOPRAZOLE 40 MG TABEC PO SCH (05:45)
--- NOTE | 2017-01-02 05:45 | NUR ---
DUE MEDICATIONS ADMINISTERED, TOLERATED WELL. PATIENT IS IN BED. NO S/S OF DISTRESS OR DISCOMFORT NOTED. WILL CONTINUE TO MONITOR.
--- NOTE | 2017-01-02 06:35 | NUR ---
PATIENTS JACKLYN JAUREGUI AT BEDSIDE.
[2017-01-02 06:49] LABS: BASOPHILS # (AUTO) 0.1 K/uL (0.00-0.22); BASOPHILS % (AUTO) 1.9 % (0.0-2.0); EOSINOPHILS # (AUTO) 0.2 K/uL (0-0.4); HEMATOCRIT 35.7 % (36-52); HEMOGLOBIN 11.7 g/dL (12.0-18.0); LYMPHOCYTES % (AUTO) 13.9 % (20.5-51.1); MEAN CORPUSCULAR HEMOGLOBIN 32 pg (27-31); MEAN CORPUSCULAR HGB CONC 33 g/dL (33-37); MEAN CORPUSCULAR VOLUME 97 fL (80-94); MONOCYTES # (AUTO) 0.7 K/uL (0.8-1.0); MONOCYTES % (AUTO) 10.1 % (1.7-9.3); NEUTROPHILS # (AUTO) 4.9 K/uL (1.8-7.7); NEUTROPHILS % (AUTO) 71.1 % (42.2-75.2); PLATELET COUNT (AUTO) 191 K/uL (140-450); RED BLOOD CELL COUNT(AUTO) 3.66 MIL/uL (4.20-6.10); RED CELL DISTRIBUTION WIDTH 14.1 % (11.6-13.7); WHITE BLOOD COUNT (AUTO) 6.9 K/uL (4.8-10.8)
[2017-01-02 06:59] LABS: ANION GAP 11.7 (8-16); CALCIUM 7.6 mg/dL (8.5-10.1); CARBON DIOXIDE 25.3 mmol/L (21-32); CHLORIDE 104 mmol/L (98-107); CREATININE 1.1 mg/dL (0.6-1.3); GLUCOSE 97 mg/dL (74-106); SODIUM SERUM 137 mmol/L (136-145); UREA NITROGEN, BLOOD 11 mg/dL (7-18)
[2017-01-02 07:07] LABS: MAGNESIUM 1.7 mg/dL (1.8-2.4); PHOSPHORUS 2.8 mg/dL (2.5-4.9)
--- NOTE | 2017-01-02 07:22 | NUR ---
ENDORSED PATIENT TO ANKIT ORTIZ FOR CONTINUITY OF CARE, PATIENT IS IN STABLE CONDITION.
--- NOTE | 2017-01-02 07:23 | NUR ---
RECEIVED REPORT FROM THE TIP BANDER NURSE AT BEDSIDE FOR CONTINUITY OF CARE. PT IS AWAKE. I INTRODUCED MYSELF AND UPDATED THE BOARD. PT NOTED THE IV R WRIST 22G SL, BANDAGED UP. RN TOLD ME HE PULLED OUT HIS LAST ONE. PT STILL HAS A BRUISE ON HIS L HIP. OTHERWISE SKIN IS INTACT. PT IS IN STABLE CONDITION. ALL SAFETY MEASURES IN PLACE. WILL CONTINUE TO MONITOR PT.
--- NOTE | 2017-01-02 07:55 | NUR ---
PT'S V/S ARE WITHIN NORMAL LIMITS. BREAKFAST IS HERE. FIXED UP HIS TRAY SO HE CAN EAT. WILL CONTINUE TO MONITOR PT.
[2017-01-02 08:00] VITALS: BP 131/66
[2017-01-02] MEDS: ALLOPURINOL 300 MG TAB PO SCH (08:33)
[2017-01-02] MEDS: LISINOPRIL 10 MG TAB PO SCH (08:33)
[2017-01-02] MEDS: PRAZOSIN 1 MG CAP PO SCH ×2 (08:33→20:13)
[2017-01-02] MEDS: ECOTRIN 81 MG TABEC PO SCH (08:33)
[2017-01-02] MEDS: POTASSIUM CHLORIDE 10 MEQ TABER PO SCH ×2 (08:33→16:46)
[2017-01-02] MEDS: metroNIDAZOLE 500 MG TAB PO SCH ×3 (08:34→16:46)
[2017-01-02] MEDS: DONEPEZIL 10 MG TAB PO SCH ×2 (08:34→20:13)
[2017-01-02] MEDS: SULFAMETH/TRIMETH DS 800/160MG 1 TAB PO SCH ×2 (08:35→20:13)
[2017-01-02] MEDS: FERROUS SULFATE 325 MG TABEC PO SCH (08:35)
[2017-01-02] MEDS: MEMANTINE 10 MG TAB PO SCH ×2 (08:35→20:14)
[2017-01-02] MEDS: METOPROLOL 25 MG TAB PO SCH ×2 (08:35→16:46)
[2017-01-02] MEDS: CALCIUM CARBONATE 500 MG TAB PO SCH ×2 (08:35→16:46)
[2017-01-02] MEDS: METOCLOPRAMIDE 10 MG/2 ML INJ VIAL IVP SCH (08:36)
[2017-01-02] MEDS: LACTOBACILLUS RHAMNOSUS GG 1 EACH CAP PO SCH (08:36)
--- NOTE | 2017-01-02 08:40 | NUR ---
ADMINISTERED MORNING MEDS. PT TOLERATED WELL. NO SIGNS OF DISTRESS. NO COMPLAINTS OF PAIN. GOT SETTLED IN BED AND WANTS TO GO BACK TO SLEEP. WILL CONTINUE TO MONITOR PT.
--- NOTE | 2017-01-02 09:00 | NUR ---
SPOKE TO DR. HARMON REGARDING PT'S LOW MAG LEVEL.
--- NOTE | 2017-01-02 09:30 | NUR ---
PT GOT UP OUT OF BED. BED ALARM ON. I TURNED THE ALARM OFF, ASSISTED HIM TO THE RESTROOM. ASSISTED HIM BACK IN BED. TURNED ON THE BED ALARM. PT RESTING IN BED. ALL SAFETY MEASURES IN PLACE. WILL CONTINUE TO MONITOR PT.
--- NOTE | 2017-01-02 10:16 | NUR ---
PT SLEEPING COMFORTABLY. WILL CONTINUE TO MONITOR PT.
[2017-01-02] MEDS: MAGNESIUM OXIDE 400 MG TAB PO SCH ×2 (10:32→20:13)
--- NOTE | 2017-01-02 10:40 | NUR ---
ORDER FOR STRAIGHT CATH FOR UA AND CULTURE. PT TOLERATED PROCEDURE WELL. WILL SEND URINE TO LAB.
[2017-01-02 12:00] VITALS: BP 137/63
--- NOTE | 2017-01-02 12:16 | NUR ---
PT RESTING IN BED. PT IS TOLERATING HIS ZOSYN IVPB. PEARL MAKER'S PASSING OUT LUNCH TRAYS. WILL CONTINUE TO MONITOR PT.
[2017-01-02 13:10] LABS: BILIRUBIN,URINE NEGATIVE (NEGATIVE); BLOOD, URINE 2+ (NEGATIVE); COLOR,URINE YELLOW (YELLOW); LEUKOCYTE ESTERASE ,URINE 1+ (NEGATIVE); NITRITE, URINE NEGATIVE (NEGATIVE); PROTEIN,URINE TRACE (NEGATIVE); UGLUCOSE NEGATIVE (NEGATIVE); UROBILINOGEN,URINE 0.2 EU/dL (0.2 - 1)
[2017-01-02 13:20] LABS: APPEARANCE,URINE SLIGHTLY HAZY (CLEAR)
[2017-01-02 13:22] LABS: BACTERIA,URINE OCCASSIONAL /HPF (None Seen); RBC,URINE 0-5 (RARE) /HPF (0-5); SQUAMOUS EPITHELIAL CELL,UR 0-3 (FEW) /LPF (0-3 (FEW))
--- NOTE | 2017-01-02 13:29 | NUR ---
PT RESTING IN BED. NO SIGNS OF DISTRESS. DENIES PAIN. WILL CONTINUE TO MONITOR PT. ALL SAFETY MEASURES IN PLACE.
--- NOTE | 2017-01-02 15:30 | NUR ---
PT GOT UP AND WAS AMBULATING IN THE ROOM. HE WAS LOOKING FOR THE BATHROOM. I ASSISTED HIM TO THE BATHROOM AND BACK. HE WANTED TO SIT IN THE CHAIR NEXT TO HIS BED FOR A WHILE. I SAT HIM DOWN, FIXED HIS BED. WILL CONTINUE TO MONITOR PT.
--- NOTE | 2017-01-02 15:55 | NUR ---
PT WANTED TO GO BACK TO BED. I ASSISTED HIM BACK TO BED. PT IS COMFORTABLE. NO SIGNS OF DISTRESS. NO COMPLAINTS OF PAIN. WILL CONTINUE TO MONITOR PT.
[2017-01-02 16:00] VITALS: BP 110/52
--- NOTE | 2017-01-02 16:23 | NUR ---
PT SLEEPING IN BED. NO DISTRESS NOTED. WILL CONTINUE TO MONITOR PT.
--- NOTE | 2017-01-02 18:05 | NUR ---
PT ATE DINNER, ABOUT 50%, WENT TO THE BATHROOM, HAD A SMALL BM, AND CAME BACK TO BED AND LIED DOWN. PT HAS NOT COMPLAINTS. NO SIGNS OF DISTRESS. WILL CONTINUE TO MONITOR PT.
--- NOTE | 2017-01-02 19:10 | NUR ---
ENDORSED PT TO THE DIRECTOR OF ONLINE EDUCATION NURSE AT BEDSIDE FOR CONTINUITY OF CARE. HE IS RESTING COMFORTABLY. PT IS IN STABLE CONDITION.
--- NOTE | 2017-01-02 19:12 | NUR ---
RECEIVED REPORT FROM DAY RN FOR CONTINUITY OF CARE. PATIENT IS A&OX2, DISCUSSED PLAN OF CARE WITH PATIENT, REINFORCEMENT NEEDED. SHIFT ASSESSMENT DONE, VS TAKEN, IN STABLE CONDITION. NO S/S OF RESPIRATORY DISTRESS NOTED ON ROOM AIR. PATIENT DENIES PAIN. PT HAS BRUISE TO LEFT HIP NOTED. IV TO RT FA 22 GAUGE PATENT AND FLUSHED. SAFETY/FALL/ CONTACT PRECAUTIONS ENFORCED. CALL LIGHT PLACED WITHIN REACH. WILL CONTINUE TO MONITOR.
[2017-01-02 20:00] VITALS: BP 140/98
[2017-01-02] MEDS: ATORVASTATIN 20 MG TAB PO SCH (20:13)
--- NOTE | 2017-01-02 20:14 | NUR ---
DUE MEDICATIONS ADMINISTERED, TOLERATED WELL. PT UP TO USE RESTROOM. SAFETY PRECAUTIONS ENFORCED. WILL CONTINUE TO MONITOR.
--- NOTE | 2017-01-02 22:06 | NUR ---
PT REMOVED IV, CANNULA INTACT. WILL REINSERT NEW IV. UP TO USE RESTROOM, VOIDED. WILL CONTINUE TO MONITOR.
[2017-01-03] VITALS: BP 117/59
--- NOTE | 2017-01-03 00:15 | NUR ---
VS TAKEN, STABLE. NEW IV LINE INSERTION TO LT WRIST 24 GAUGE PATENT AND WRAPPED WITH INGE BANDAGE. WILL CONTINUE TO MONITOR.
[2017-01-03] MEDS: PIPER/TAZO 3.375GM/D5W PREMIX 50 ML IV SCH ×3 (00:47→11:52)
--- NOTE | 2017-01-03 02:07 | NUR ---
PT IS SLEEPING. NO S/S OF DISTRESS OR DISCOMFORT NOTED. WILL CONTINUE TO MONITOR.
[2017-01-03 04:00] VITALS: BP 106/48
--- NOTE | 2017-01-03 04:10 | NUR ---
VS TAKEN, STABLE. NO S/S OF DISTRESS OR DISCOMFORT. WILL CONTINUE TO MONITOR.
--- NOTE | 2017-01-03 06:03 | NUR ---
PT REMOVED IV, CANNULA INTACT. IV TO LT HAND 22 GAUGE INSERTED, ANTIBIOTICS ADMINISTERED.
[2017-01-03] MEDS: PANTOPRAZOLE 40 MG TABEC PO SCH (06:20)
--- NOTE | 2017-01-03 07:07 | NUR ---
ENDORSED PATIENT TO [facility] ORTIZ FOR CONTINUITY OF CARE, PT IS IN STABLE CONDITION.
--- NOTE | 2017-01-03 07:08 | NUR ---
RECEIVED REPORT FROM THE TECHNICAL MANAGER NURSE AT BEDSIDE FOR CONTINUITY OF CARE. PT IS AWAKE. I INTRODUCED MYSELF AND UPDATED THE BOARD. PER TECHNICAL MANAGER NURSE, PT IS TO BE D/C TODAY SOON I GET AN ORDER, THE SON WILL BE HERE TO TAKE HIM TO [facility]. PT REMOVED THE IV LAST NIGHT. NEW IV STARTED ON L HAND 22G, SL, WRAPPED IN GAUGE. WILL CONTINUE TO MONITOR PT.
[2017-01-03 07:16] LABS: BASOPHILS # (AUTO) 0.2 K/uL (0.00-0.22); BASOPHILS % (AUTO) 2.4 % (0.0-2.0); EOSINOPHILS # (AUTO) 0.3 K/uL (0-0.4); EOSINOPHILS % (AUTO) 4.9 % (0.0-4.0); HEMATOCRIT 35.8 % (36-52); HEMOGLOBIN 11.8 g/dL (12.0-18.0); LYMPHOCYTES # (AUTO) 1.2 K/uL (2.0-11.5); LYMPHOCYTES % (AUTO) 18.8 % (20.5-51.1); MEAN CORPUSCULAR HEMOGLOBIN 32 pg (27-31); MEAN CORPUSCULAR HGB CONC 33 g/dL (33-37); MEAN CORPUSCULAR VOLUME 98 fL (80-94); MONOCYTES # (AUTO) 0.7 K/uL (0.8-1.0); MONOCYTES % (AUTO) 10.4 % (1.7-9.3); NEUTROPHILS # (AUTO) 4.1 K/uL (1.8-7.7); NEUTROPHILS % (AUTO) 63.5 % (42.2-75.2); PLATELET COUNT (AUTO) 206 K/uL (140-450); RED BLOOD CELL COUNT(AUTO) 3.67 MIL/uL (4.20-6.10); RED CELL DISTRIBUTION WIDTH 13.8 % (11.6-13.7); WHITE BLOOD COUNT (AUTO) 6.5 K/uL (4.8-10.8)
[2017-01-03 07:45] LABS: ANION GAP 11.2 (8-16); CALCIUM 7.6 mg/dL (8.5-10.1); CARBON DIOXIDE 26.2 mmol/L (21-32); CHLORIDE 102 mmol/L (98-107); CREATININE 1.2 mg/dL (0.6-1.3); GLUCOSE 93 mg/dL (74-106); POTASSIUM 3.4 mmol/L (3.5-5.1); SODIUM SERUM 136 mmol/L (136-145); UREA NITROGEN, BLOOD 12 mg/dL (7-18)
--- NOTE | 2017-01-03 07:45 | NUR ---
V/S WITHIN NORMAL RANGE. PT SITTING ON SIDE OF BED EATING BREAKFAST. HE IS MORE AMBULATORY YESTERDAY AND TODAY. WILL KEEP AN EYE OUT FOR DC ORDERS. [facility] ROOM 20. HE HAS ALREADY AMBULATED TO THE BATHROOM, TO THE SINK TO WASH UP. WILL CONTINUE TO MONITOR PT.
[2017-01-03 07:48] LABS: ALBUMIN 2.7 g/dL (3.4-5.0); MAGNESIUM 1.8 mg/dL (1.8-2.4); PHOSPHORUS 2.5 mg/dL (2.5-4.9)
[2017-01-03 08:00] VITALS: BP 104/74
[2017-01-03] MEDS: METOPROLOL 25 MG TAB PO SCH (08:00)
[2017-01-03] MEDS: ALLOPURINOL 300 MG TAB PO SCH (08:23)
[2017-01-03] MEDS: ECOTRIN 81 MG TABEC PO SCH (08:23)
[2017-01-03] MEDS: DONEPEZIL 10 MG TAB PO SCH (08:23)
[2017-01-03] MEDS: PRAZOSIN 1 MG CAP PO SCH (08:23)
[2017-01-03] MEDS: FERROUS SULFATE 325 MG TABEC PO SCH (08:23)
[2017-01-03] MEDS: metroNIDAZOLE 500 MG TAB PO SCH ×2 (08:23→13:06)
[2017-01-03] MEDS: CALCIUM CARBONATE 500 MG TAB PO SCH (08:24)
[2017-01-03] MEDS: METOCLOPRAMIDE 10 MG/2 ML INJ VIAL IVP SCH (08:24)
[2017-01-03] MEDS: LACTOBACILLUS RHAMNOSUS GG 1 EACH CAP PO SCH (08:24)
[2017-01-03] MEDS: POTASSIUM CHLORIDE 10 MEQ TABER PO SCH (08:24)
[2017-01-03] MEDS: SULFAMETH/TRIMETH DS 800/160MG 1 TAB PO SCH (08:24)
--- NOTE | 2017-01-03 08:25 | NUR ---
ADMINISTERED MORNING MEDS. PT TOLERATED WELL. HELD 2 BP MEDS B/C PT'S BP WAS ON THE LOW END. WILL CONTINUE TO MONITOR PT.
[2017-01-03] MEDS: MEMANTINE 10 MG TAB PO SCH (09:00)
[2017-01-03] MEDS: LISINOPRIL 10 MG TAB PO SCH (09:00)
--- NOTE | 2017-01-03 11:15 | NUR ---
PT SLEEPING COMFORTABLY. NO SIGNS OF DISTRESS. WILL CONTINUE TO MONITOR PT.
[2017-01-03] MEDS ORDERED: METR500T1 PO (11:49)
[2017-01-03] MEDS ORDERED: LACT10CA PO (11:51)
[2017-01-03] MEDS ORDERED: SULF1TAB12 PO (11:51)
[2017-01-03] MEDS ORDERED: PIPE1SOL IV (11:53)
[2017-01-03 12:00] VITALS: BP 103/51
--- NOTE | 2017-01-03 13:00 | NUR ---
PT IS RESTING IN BED. NO SIGNS OF DISTRESS. WILL CONTINUE TO MONITOR PT.
--- NOTE | 2017-01-03 14:00 | NUR ---
REAL TIME OPERATOR GOT PT READY FOR TRANSFER. ALL BELONGINGS WITH PT. EVERYTHING PACKED UP TO GO. WILL KEEP MONITORING PT AND FOR SON'S ARRIVAL.
[2017-01-03 16:00] VITALS: BP 101/60
--- NOTE | 2017-01-03 16:10 | NUR ---
SON, JUVENTINO CAME. WENT OVER THE DISCHARGE INSTRUCTIONS WITH PT AND SON. SON SIGNED ALL THE APPROPRIATE FORMS. ANSWERED ALL QUESTIONS. PT AND SON VERBALIZED UNDERSTANDING. PT PULLED OUT HIS IV BY ACCIDENT. I CALLED [facility] AND SPOKE TO PRAKASH. GAVE FULL REPORT. THEY WILL BE EXPECTING HIM SOON.
--- NOTE | 2017-01-03 16:20 | NUR ---
PT WHEELED OUT BY [facility], ACCOMPANIED BY SON. PT HAS ALL HIS PERSONAL BELONGINGS WITH HIM. PT IS IN STABLE CONDITION.
== END 2017-01-03 16:20 | DRG 871 ==
LOC: MED 04:50 → MTU 06:57
PROVIDERS: ADMIT Family Medicine; ATTEND Family Medicine
DX: A41.9 Sepsis, unspecified organism (principal); J69.0 Pneumonitis due to inhalation of food and vomit; N17.0 Acute kidney failure with tubular necrosis; G93.41 Metabolic encephalopathy; E43 Unspecified severe protein-calorie malnutrition; N39.0 Urinary tract infection, site not specified; A04.7 Enterocolitis due to Clostridium difficile; E86.0 Dehydration; M94.0 Chondrocostal junction syndrome [Tietze]; E87.6 Hypokalemia; G30.9 Alzheimer's disease, unspecified; F02.80 Dementia in other diseases classified elsewhere, unspecified severity, without behavioral disturbance, psychotic disturbance, mood disturbance, and anxiety; K21.9 Gastro-esophageal reflux disease without esophagitis; M10.9 Gout, unspecified; K57.90 Diverticulosis of intestine, part unspecified, without perforation or abscess without bleeding; E02 Subclinical iodine-deficiency hypothyroidism; E83.42 Hypomagnesemia; N20.0 Calculus of kidney; B96.20 Unspecified Escherichia coli [E. coli] as the cause of diseases classified elsewhere; Z16.12 Extended spectrum beta lactamase (ESBL) resistance; Z79.899 Other long term (current) drug therapy; Z79.82 Long term (current) use of aspirin; Z68.25 Body mass index [BMI] 25.0-25.9, adult
CPT/HCPCS: 36415; 71010; 76770; 80048; 80053; 80305; 81001; 82040; 82140; 82150; 83036; 83605; 83690; 83735; 83880; 84100; 84439; 84443; 84484; 85025; 85610; 85730; 87040; 87045; 87070; 87081; 87086; 87186; 93005; 96361; 96365; 96375; 97110; 97116; 97140; 97530; 99285; C1758; J1885; J1956; J2405; J2543; J2765; J3490; J7030; J7060; Q0092

== ENCOUNTER 2018-04-21 10:41 | Inpatient (IN) | payer OTHER ==
[~2018-04-21] VITALS: Ht 177.8 cm; Wt 81.6 kg
[~2018-04-21 10:41] MED LIST changes: -DONE5TAB2 PO; +DONE5TAB6 PO; +FERR-15 PO; -FERR-193 PO; +FLOR250 PO; +LACT10CA PO; +METR500T1 PO; +PIPE1SOL IV; -POTA10TA10 PO; +POTA10TE30 PO; -SACC250C4 PO; +SULF1TAB12 PO
[2018-04-21 10:45] VITALS: BP 147/59
--- NOTE | 2018-04-21 10:50 | NUR ---
PATIENT BIBMark FROM [facility] DUE TO SYNCOPE AND DIARRHEA. PT IS AAOX2 WTIH UNSTEADY GAIT, LUNGS CLEAR BL; HR EVEN AND REGULAR; PT DENIES ANY FEVER, CP, SOB, OR COUGH, DENIES N/V/D; SKIN IS PINK/WARM/DRY; INCONTINENT NOTED, DENIES PAIN, VSS; PATIENT POSITIONED FOR COMFORT; HOB ELEVATED; BEDRAILS UP X2; BED DOWN. ER MD MADE AWARE OF PT STATUS.
--- NOTE | 2018-04-21 10:50 | NUR ---
EKG BEING DONE AT BEDSIDE
--- NOTE | 2018-04-21 10:52 | NUR ---
RAD AT BEDSIDE
--- NOTE | 2018-04-21 10:55 | NUR ---
LAB AT BEDSIDE
[2018-04-21 11:39] LABS: BASOPHILS % (AUTO) 0.3 % (0.0-2.0); EOSINOPHILS % (AUTO) 0.1 % (0.0-4.0); HEMATOCRIT 40.7 % (36-52); HEMOGLOBIN 13.2 g/dL (12.0-18.0); LYMPHOCYTES # (AUTO) 0.5 K/uL (2.0-11.5); LYMPHOCYTES % (AUTO) 6.5 % (20.5-51.1); MEAN CORPUSCULAR HEMOGLOBIN 32 pg (27-31); MEAN CORPUSCULAR HGB CONC 33 g/dL (33-37); MEAN CORPUSCULAR VOLUME 97.4 fL (80-94); MONOCYTES # (AUTO) 0.4 K/uL (0.8-1.0); MONOCYTES % (AUTO) 5.2 % (1.7-9.3); NEUTROPHILS # (AUTO) 6.9 K/uL (1.8-7.7); NEUTROPHILS % (AUTO) 87.9 % (42.2-75.2); PLATELET COUNT (AUTO) 176 K/uL (140-450); RED BLOOD CELL COUNT(AUTO) 4.18 MIL/uL (4.20-6.10); RED CELL DISTRIBUTION WIDTH 14.6 % (11.6-13.7); WHITE BLOOD COUNT (AUTO) 7.8 K/uL (4.8-10.8)
[2018-04-21 11:54] LABS: CARBON DIOXIDE 24.1 mmol/L (21-32); CHLORIDE 102 mmol/L (98-107); CREATININE 1.5 mg/dL (0.7-1.3); GLUCOSE 154 mg/dL (74-106); POTASSIUM 4.1 mmol/L (3.5-5.1); SODIUM SERUM 137 mmol/L (136-145); UREA NITROGEN, BLOOD 26 mg/dL (7-18)
--- NOTE | 2018-04-21 11:57 | NUR ---
STREIGHT CATH PERFORMED TO COLLECT URINE ORDERED, PT TOLERATED WELL.
[2018-04-21 12:00] LABS: ALBUMIN 3.8 g/dL (3.4-5.0); ASPARTATE AMINOTRANSFERASE 8 U/L (15-37); TOTAL BILIRUBIN 0.8 mg/dL (0.0-1.0)
[2018-04-21 13:20] LABS: APPEARANCE,URINE HAZY (CLEAR); COLOR,URINE ORANGE (YELLOW)
[2018-04-21 13:21] LABS: BILIRUBIN,URINE NEGATIVE (NEGATIVE); LEUKOCYTE ESTERASE ,URINE TRACE (NEGATIVE); NITRITE, URINE NEGATIVE (NEGATIVE); UGLUCOSE NEGATIVE (NEGATIVE)
[2018-04-21 13:22] LABS: BLOOD, URINE 2+ (NEGATIVE)
[2018-04-21 13:23] LABS: RBC,URINE 11-20 (MOD) /HPF (0-5)
--- NOTE | 2018-04-21 13:25 | NUR ---
PT IS CONFUSED, REMOVED IV SITE BY HIMSELF, NO BLEEDING NOTED, REMOVED THE MONITORS BY HIMSELF, WALKING AROUND THE FLOOR, REORIENTED PT, BACK TO THE ROOM.
[2018-04-21] MEDS ORDERED: MORPHINE SULFATE 2 MG/ML SYR IVP PRN (13:30)
[2018-04-21] MEDS ORDERED: LORazepam 2 MG/ML VIAL IM/IVP PRN (13:30)
[2018-04-21] MEDS ORDERED: HYDROcodone/APAP 5/325 MG 1 TAB TAB PO PRN (13:30)
[2018-04-21] MEDS ORDERED: ONDANSETRON 4 MG/2 ML VIAL IM/IVP PRN (13:30)
[2018-04-21] MEDS ORDERED: ACETAMINOPHEN 325 MG TAB PO PRN (13:30)
[2018-04-21] MEDS ORDERED: DOCUSATE SODIUM 100 MG GELCAP PO PRN (13:30)
[2018-04-21] MEDS ORDERED: ZOLPIDEM 5 MG TAB PO PRN (13:30)
[2018-04-21] MEDS ORDERED: cefTRIAXone 1,000 MG VIAL ONE (13:33)
--- NOTE | 2018-04-21 13:39 | NUR ---
IV INSERTED TO LEFT FOREARM, 20GA, STARTED IV ABX.
[2018-04-21] MEDS: DEXT 5% / NACL 0.45% 1,000 ML IV SCH (13:58)
[2018-04-21 14:15] VITALS: BP 103/85
--- NOTE | 2018-04-21 14:15 | NUR ---
Patient will be admitted to care of DR. GIBBONS. Admited to [facility]. Will go to room 120B. Belongings list completed. Report to ANGEL HEALY AT BEDSIDE. PT IS IN STABLE CONDITION.
--- NOTE | 2018-04-21 14:15 | NUR ---
RECEIVED PT FROM ED. PT IS IN STABLE CONDITION. PT IS AMBULATORY WITHOUT ASSIST, HOWEVER WILL START FALL RISK PROTOCOL DUE TO MENTAL STATUS AND WANDERING TENDENCY PER ED NURSE. AAO X1, HX OF DEMENTIA. LUNGS CTA/DIMINISHED IN ALL SCRUGGS. HEART RHYTHM IS REGULAR. ABDOMEN SOFT AND NON-DISTENDED. IV SITE PATENT AND RUNNING IVF PER MD ORDERS. SKIN IS INTACT. ALL SAFETY MEASURES IN PLACE, WILL CONTINUE TO MONITOR. Addendum: 04/21/18 at 1814 by Sarai Barba Meng, RN DENIES PAIN AND DISCOMFORT.
[2018-04-21 14:35] LABS: MAGNESIUM 1.7 mg/dL (1.8-2.4); PHOSPHORUS 2.7 mg/dL (2.5-4.9); THYROID STIMULATING HORMONE 4.51 uIU/mL (0.34-3.74)
[2018-04-21] MEDS ORDERED: MECLIZINE 25 MG TAB PO PRN (14:50)
[2018-04-21] MEDS ORDERED: MEMA10TA PO (15:26)
[2018-04-21] MEDS ORDERED: FINA5TAB1 PO (15:26)
[2018-04-21] MEDS ORDERED: METH1TAB50 PO (15:26)
[2018-04-21] MEDS ORDERED: CALC500T38 PO (15:26)
[2018-04-21] MEDS ORDERED: MONT10TA35 PO (15:26)
[2018-04-21] MEDS ORDERED: DIPRC TP (15:26)
[2018-04-21] MEDS ORDERED: MAG SULF 2000 MG/WATER PREMIX 50 ML IV ONE (15:55)
[2018-04-21 16:00] VITALS: BP 96/73
[2018-04-21] MEDS ORDERED: MAGNESIUM OXIDE 400 MG TAB PO SCH (17:00)
[2018-04-21] MEDS ORDERED: LACTOBACILLUS RHAMNOSUS GG 1 EACH CAP PO SCH (17:00)
--- NOTE | 2018-04-21 17:13 | NUR ---
SCHEDULED MEDICATIONS ADMINISTERED AT THIS TIME PER MD ORDERS. PT SWALLOWS ORAL PILLS WITHOUT PROBLEMS. WILL CONTINUE TO MONITOR.
--- NOTE | 2018-04-21 18:58 | NUR ---
DR. BLAKELY HERE TO PERFORM MICHELLE FOR OCCULT BLOOD. PATIENT COOPERATIVE.
--- NOTE | 2018-04-21 19:20 | NUR ---
REPORT GIVEN TO SHREDDING MACHINE TENDER RN. PT IN STABLE CONDITION.
--- NOTE | 2018-04-21 19:21 | NUR ---
RECEIVED REPORT FROM DAY SHIFT RN FOR CONTINUITY OF CARE. PT IS A VERY CONFUSED 82 YEAR OLD MALE, A/OX1, ON ROOM AIR. PT IS NOT ABLE TO MAKE EXACT NEEDS KNOWN, ABLE TO FOLLOW COMMANDS. RESPIRATIONS EVEN AND UNLABORED AT THE MOMENT. PT SKIN IS INTACT. PT HAS 20G IV TO LEFT FOREARM, ASYMPTOMATIC, INTACT AND PATENT. DISCUSSED PLAN OF CARE WITH PT, PT VERBALIZED UNDERSTANDING. VITAL SIGNS WITHIN NORMAL LIMITS. PT STABLE, NO SIGNS OF DISTRESS NOTED AT THIS TIME. BED IN LOWEST POSITION, BED ALARM ON. CALL LIGHT WITHIN REACH, WILL CONTINUE TO MONITOR.
[2018-04-21 20:00] VITALS: BP 131/54
[2018-04-21] MEDS ORDERED: METHENAMINE HIPPURATE 1 GM PO SCH (21:00)
--- NOTE | 2018-04-21 21:15 | NUR ---
PT REMOVED IV, CANNULA FOUND INTACT, MINIMAL BLEEDING NOTED. INSERTED NEW 18G IV TO LEFT FOREARM FOR 21:00 ABX, ONE TRY. SECURED IV WITH TAPE AND THEN WRAPPED WITH KERLIX AND TAPED AGAIN.
[2018-04-21] MEDS: MEMANTINE 10 MG TAB PO SCH (21:18)
[2018-04-21] MEDS: metroNIDAZOLE 500 MG/NS PREMIX 100 ML IV SCH (21:18)
[2018-04-21] MEDS: DONEPEZIL 10 MG TAB PO SCH (21:18)
--- NOTE | 2018-04-21 21:19 | NUR ---
ADMINISTERED SCHEDULED MEDICATIONS, PT TOLERATED WELL. WILL CONTINUE TO MONITOR.
--- NOTE | 2018-04-21 22:32 | NUR ---
SPOKE TO DR RIDDLE ABOUT PT BEING AGITATED AND TAKING OFF TELE BOX AND IV REPEATEDLY. TOLD ONLY ABOUT 50% OF FLAGYL ABX WENT IN. DR RIDDLE SAYS ITS OK TO TAKE IT OFF NOW UNTIL PT CALMS DOWN AND OK TO LEAVE HIM WITHOUT IV TIL TOMORROW. DR RIDDLE INSTRUCTED TO KEEP LIGHTS ON IN ROOM IN CASE PT IS SUNDOWNING.
[2018-04-22] VITALS: BP 137/61
--- NOTE | 2018-04-22 | NUR ---
VITAL SIGNS WITHIN NORMAL LIMITS. PT STABLE, NO SIGNS OF DISTRESS NOTED AT THIS TIME. BED IN LOWEST POSITION, BED ALARM ON. CALL LIGHT WITHIN REACH, WILL CONTINUE TO MONITOR.
[2018-04-22] MEDS: DEXT 5% / NACL 0.45% 1,000 ML IV SCH (01:59)
[2018-04-22 04:00] VITALS: BP 143/59
[2018-04-22] MEDS: metroNIDAZOLE 500 MG/NS PREMIX 100 ML IV SCH ×3 (05:00→20:28)
[2018-04-22 06:06] LABS: BASOPHILS # (AUTO) 0.1 K/uL (0.00-0.22); BASOPHILS % (AUTO) 1.2 % (0.0-2.0); EOSINOPHILS # (AUTO) 0.1 K/uL (0-0.4); EOSINOPHILS % (AUTO) 1.5 % (0.0-4.0); HEMATOCRIT 35.3 % (36-52); HEMOGLOBIN 11.9 g/dL (12.0-18.0); LYMPHOCYTES # (AUTO) 1.3 K/uL (2.0-11.5); LYMPHOCYTES % (AUTO) 22.8 % (20.5-51.1); MEAN CORPUSCULAR HEMOGLOBIN 33 pg (27-31); MEAN CORPUSCULAR HGB CONC 34 g/dL (33-37); MEAN CORPUSCULAR VOLUME 96.7 fL (80-94); MONOCYTES # (AUTO) 0.7 K/uL (0.8-1.0); MONOCYTES % (AUTO) 12.2 % (1.7-9.3); NEUTROPHILS # (AUTO) 3.6 K/uL (1.8-7.7); NEUTROPHILS % (AUTO) 62.3 % (42.2-75.2); PLATELET COUNT (AUTO) 190 K/uL (140-450); RED BLOOD CELL COUNT(AUTO) 3.65 MIL/uL (4.20-6.10); RED CELL DISTRIBUTION WIDTH 14.1 % (11.6-13.7); WHITE BLOOD COUNT (AUTO) 5.8 K/uL (4.8-10.8)
[2018-04-22 06:24] LABS: CARBON DIOXIDE 25.7 mmol/L (21-32); CHLORIDE 103 mmol/L (98-107); CREATININE 1.4 mg/dL (0.7-1.3); GLUCOSE 101 mg/dL (74-106); POTASSIUM 3.7 mmol/L (3.5-5.1); SODIUM SERUM 136 mmol/L (136-145); UREA NITROGEN, BLOOD 25 mg/dL (7-18)
[2018-04-22 06:32] LABS: MAGNESIUM 1.6 mg/dL (1.8-2.4); PHOSPHORUS 2.8 mg/dL (2.5-4.9)
--- NOTE | 2018-04-22 07:26 | NUR ---
ENDORSED PT TO DAY SHIFT RN FOR CONTINUITY OF CARE. PT IN STABLE CONDITION.
--- NOTE | 2018-04-22 07:28 | NUR ---
RECEIVED REPORT FROM TRIMMER AND BORER MACHINE OPERATOR NURSE, PT IS SLEEPING IN BED BUT EASILY AWAKEN, PT IS AAOX1, CONFUSED, PT IS AMBULATORY, PT HAS NO IV ACCESS AT THIS TIME AND NO TELE MONITOR, SKIN IS INTACT, NO S/S OF RESPIRATORY DISTRESS OR DISCOMFORT NOTED, DISCUSSED PLAN OF CARE WITH PT, PT REINFORCEMENT NEEDED, SAFETY/FALL PRECAUTIONS ARE IN PLACE, CALL LIGHT IS WITHIN REACH, WILL CONTINUE TO MONITOR.
--- NOTE | 2018-04-22 07:30 | NUR ---
RECEIVED REPORT FROM SECURITY SUPERVISOR NURSE, PT IS RESTING IN BED, AAOX1, PT IS NON VERBAL, PT HAS PRESSURE ULCER ON SACRAL AREA AND PRESSURE ULCER ON LEFT ELBOW, MCKINNEY CATHETER IS IN PLACE, CLEAR YELLOW URINE, PT HAS IV ON HIS LEFT HAND, PATENT, INTACT, FLUSHING WELL, PT IS ON A TRACH TO VENT, CURRENTLY RECEIVING A BREATHING TREATMENT, NO S/S OF RESPIRATORY DISTRESS OR DISCOMFORT NOTED, SAFETY/FALL/SEIZURE PRECAUTIONS ARE IN PLACE, DISCUSSED PLAN OF CARE WITH PT, PT UNABLE TO COMPREHEND, CALL LIGHT IS WITHIN REACH, WILL CONTINUE TO MONITOR. Addendum: 04/22/18 at 1319 by Caren Sanchez RN WRONG PT ENTRY. THIS ASSESSMENT DOES NOT PERTAIN TO THIS PT.
[2018-04-22 08:00] VITALS: BP 155/56
--- NOTE | 2018-04-22 08:30 | NUR ---
INFORMED PT I WOULD BY PLACE THE TELEMETRY BOX TO MONITOR HIS HEART. PT VERBALIZED UNDERSTANDING.
[2018-04-22] MEDS ORDERED: LACTOBACILLUS RHAMNOSUS GG 1 EACH CAP PO SCH (09:00)
[2018-04-22] MEDS ORDERED: NON-FORMULARY ITEM (Lactobacillus Rhamnosus Gg (Culturelle Health & Wellness) 1 EACH) PO SCH (09:00)
[2018-04-22] MEDS ORDERED: ALFUZOSIN HCL 10 MG PO SCH (09:00)
[2018-04-22] MEDS: NACL 0.9% 1,000 ML IV SCH ×2 (09:10→20:30)
[2018-04-22] MEDS: ECOTRIN 81 MG TABEC PO SCH (09:12)
[2018-04-22] MEDS: LACTOBACILLUS RHAMNOSUS GG 1 EACH CAP PO SCH (09:13)
[2018-04-22] MEDS: FERROUS SULFATE 325 MG TABEC PO SCH (09:13)
[2018-04-22] MEDS: DONEPEZIL 10 MG TAB PO SCH ×2 (09:14→20:28)
[2018-04-22] MEDS: TAMSULOSIN 0.4 MG CAP PO SCH (09:14)
[2018-04-22] MEDS: MEMANTINE 10 MG TAB PO SCH ×2 (09:14→20:28)
[2018-04-22] MEDS: MONTELUKAST SODIUM 10 MG TAB PO SCH (09:14)
[2018-04-22] MEDS: FINASTERIDE 5 MG TAB PO SCH (09:14)
[2018-04-22] MEDS: ALLOPURINOL 300 MG TAB PO SCH (09:15)
[2018-04-22] MEDS: FAMOTIDINE 20 MG TAB PO SCH (09:15)
[2018-04-22] MEDS ORDERED: MAGNESIUM OXIDE 400 MG TAB PO SCH (10:00)
[2018-04-22] MEDS ORDERED: CALCIUM CARB 600 MG TAB PO SCH (10:00)
--- NOTE | 2018-04-22 10:00 | NUR ---
PT REMOVED TELE MONITOR AGAIN, PT REFUSED TO HAVE PLACED BACK. DR. ROBERTS MADE AWARE.
--- NOTE | 2018-04-22 10:23 | NUR ---
PATIENT HAS BEEN SCREENED AND CATEGORIZED MODERATE NUTRITION RISK. PATIENT WILL BE SEEN WITHIN 3-5 DAYS OF ADMISSION. 04/24/18 04/26/[address]
--- NOTE | 2018-04-22 11:55 | NUR ---
PER DR. BLAKELY START FLAGYL AFTER STOOL PANEL IS COLLECTED.
[2018-04-22 12:00] VITALS: BP 122/56
--- NOTE | 2018-04-22 12:00 | NUR ---
PT SLEEPING IN BED AT THIS TIME, NO S/S OF RESPIRATORY DISTRESS NOTED, CALL LIGHT WITHIN REACH, WILL CONTINUE TO MONITOR.
--- NOTE | 2018-04-22 15:00 | NUR ---
PT IS RESTING IN BED, FAMILY IS AT BEDSIDE AT THIS TIME.
[2018-04-22 16:00] VITALS: BP 140/61
--- NOTE | 2018-04-22 17:45 | NUR ---
PT ATTEMPTING TO GET OUT OF BED. PT PULLED OUT IV AT THIS TIME, CATHETER TIP INTACT.
--- NOTE | 2018-04-22 19:15 | NUR ---
ENDORSED PT TO MEDICAL SERVICES MANAGER NURSE FOR CONTINUITY OF CARE. PT STABLE AT THIS TIME.
--- NOTE | 2018-04-22 19:16 | NUR ---
RECEIVED REPORT FROM DAY SHIFT RN FOR CONTINUITY OF CARE. PT IS A VERY CONFUSED 82 YEAR OLD MALE, A/OX1, ON ROOM AIR. PT IS NOT ABLE TO MAKE EXACT NEEDS KNOWN, ABLE TO FOLLOW COMMANDS. RESPIRATIONS EVEN AND UNLABORED AT THE MOMENT. PT SKIN IS INTACT. NO IV ACCESS. DISCUSSED PLAN OF CARE WITH PT, PT VERBALIZED UNDERSTANDING. VITAL SIGNS WITHIN NORMAL LIMITS. PT STABLE, NO SIGNS OF DISTRESS NOTED AT THIS TIME. BED IN LOWEST POSITION, BED ALARM ON. CALL LIGHT WITHIN REACH, WILL CONTINUE TO MONITOR.
[2018-04-22 20:00] VITALS: BP 121/50
--- NOTE | 2018-04-22 20:29 | NUR ---
ADMINISTERED SCHEDULED MEDICATIONS PER ORDER, PT TOLERATED WELL. HELD FLAGYL BECAUSE PT HAS NO IV ACCESS AND BECAUSE ITS ON A PHYSICIAN HOLD UNTIL WE HAVE STOOL PANEL.
[2018-04-23] VITALS: BP 156/55
[2018-04-23 04:00] VITALS: BP 117/54
[2018-04-23] MEDS: metroNIDAZOLE 500 MG/NS PREMIX 100 ML IV SCH ×2 (04:31→13:00)
--- NOTE | 2018-04-23 04:31 | NUR ---
HELD FLAGYL BECAUSE OF PHYSICIAN HOLD UNTIL STOOL PANEL IS DONE, AND PT HAS NO IV SITE.
--- NOTE | 2018-04-23 07:20 | NUR ---
ENDORSED PT TO DAY SHIFT RN FOR CONTINUITY OF CARE, PT IN STABLE CONDITION.
--- NOTE | 2018-04-23 07:20 | NUR ---
RECEIVED PT FROM HEAD OF MARKETING ADOMETRY NURSE CJ, PT ASLEEP IN BED, NO SIGNS OF DISTRESS, NO IV ACCESS, BED IN LOWEST POSITION, WILL CONTINUE TO MONITOR.
[2018-04-23 08:00] VITALS: BP 150/85
--- NOTE | 2018-04-23 08:00 | NUR ---
PT REFUSED TO BE ON TELE, HAVE IV ACCESS, AND TO HAVE BLOOD DRAWN FOR LABS.
[2018-04-23] MEDS: DONEPEZIL 10 MG TAB PO SCH ×2 (09:24→20:28)
[2018-04-23] MEDS: ECOTRIN 81 MG TABEC PO SCH (09:24)
[2018-04-23] MEDS: TAMSULOSIN 0.4 MG CAP PO SCH (09:24)
[2018-04-23] MEDS: ALLOPURINOL 300 MG TAB PO SCH (09:25)
[2018-04-23] MEDS: LACTOBACILLUS RHAMNOSUS GG 1 EACH CAP PO SCH (09:25)
[2018-04-23] MEDS: FAMOTIDINE 20 MG TAB PO SCH (09:25)
[2018-04-23] MEDS: MEMANTINE 10 MG TAB PO SCH ×2 (09:25→20:28)
[2018-04-23] MEDS: MONTELUKAST SODIUM 10 MG TAB PO SCH (09:25)
[2018-04-23] MEDS: FINASTERIDE 5 MG TAB PO SCH (09:25)
[2018-04-23] MEDS: FERROUS SULFATE 325 MG TABEC PO SCH (09:25)
[2018-04-23] MEDS: NACL 0.9% 1,000 ML IV SCH ×2 (09:26→22:40)
--- NOTE | 2018-04-23 09:56 | NUR ---
PT REFUSED ALL DUE MEDICATIONS, PTS SHAKES HEAD AND SAYS "NO". WILL RETURN ALL DUE MEDICATIONS.
[2018-04-23 12:00] VITALS: BP 130/70
--- NOTE | 2018-04-23 12:00 | NUR ---
STOOL SAMPLE SENT TO LAB.
--- NOTE | 2018-04-23 12:15 | NUR ---
PT REQUESTED TO BE LEFT ALONE TO NAP, WILL CONTINUE TO MONITOR.
--- NOTE | 2018-04-23 13:59 | NUR ---
PT REFUSED IV ACCESS, WILL HOLD DUE ANTIBIOTIC.
--- NOTE | 2018-04-23 14:17 | NUR ---
PT REFUSES IV ACCESS WILL HOLD DUE ANTIBIOTIC.
--- NOTE | 2018-04-23 15:55 | NUR ---
PHYSICAL THERAPY CO-SIGN The Physical Therapy Progress Notes documented by Corduroy Cutting Supervisor have been reviewed. Reviewed/Co-Signed by: Cherrie Phillips PT Documentation Done by:AKOSUA ESTEVEZ MRB ENGINEER POC REVIEWED W/ MRB ENGINEER; WILL BENEFIT W/ P.T. AFTER ACUTE STAY Addendum: 04/23/18 at 1555 by Cherrie Phillips PT Amended: Links added.
[2018-04-23 16:00] VITALS: BP 155/82
--- NOTE | 2018-04-23 16:44 | NUR ---
PT RESTING IN BED NO SIGNS OF DISTRESS, WILL CONTINUE TO MONITOR.
--- NOTE | 2018-04-23 19:25 | NUR ---
ENDORSED PT TO EMAIL MARKETING INTERN NURSE, PT STABLE.
--- NOTE | 2018-04-23 19:26 | NUR ---
RECD. RESTING IN BED SLEEPING BUT EASILY AROUSABLE, A/OX1, SEEMS DROWSY. RESPIRATION EVEN AND UNLABORED. SAFETY MEASURES ENFORCED. BED ON ALARM. NO APPEARANCE OF PAIN NOTED 0/10.
--- NOTE | 2018-04-23 19:26 | NUR ---
Patient's Plan of Care was discussed and reviewed with MELON PACKER: MAXIME MART
[2018-04-23 20:00] VITALS: BP 128/65
--- NOTE | 2018-04-23 20:00 | NUR ---
AWAKE, IN BED. REORIENTED TO HOSPITAL SETTING. PLAN OF CARE FOR THE SHIFT DISCUSSED. NEEDS REINFORCEMENT. STOOL CONTAINER FOR SPECIMEN PLACED IN THE BR. INFORMED PATIENT THAT NURSE WILL ACCOMPANY HIM TO THE BR WHEN HE WILL HAVE BM.
--- NOTE | 2018-04-23 20:15 | NUR ---
BILATERAL SEQUENTIALS NOT APPLIED, PATIENT AMBULATING OFTEN INSIDE ROOM.
--- NOTE | 2018-04-23 20:28 | NUR ---
DUE PO MEDICATIONS GIVEN, TOLERATED WELL.
--- NOTE | 2018-04-23 20:30 | NUR ---
INFORMED DR. VELAZQUEZ, PATIENT BM REPORTED BY AM NURSE ALREADY FORMED, IF SHE CAN CANCEL ORDER FOR C-DIFF TEST, ALSO REFUSING IV FLAGYL IF IT CAN BE CHANGED TO PO. WILL CHECK ORDERS.
--- NOTE | 2018-04-23 21:15 | NUR ---
OUT OF BED TO VOID IN THE BR. BACK TO BED AFTER VOIDING. GAIT STEADY.
--- NOTE | 2018-04-23 22:05 | NUR ---
LYING IN BED, ON HIS LEFT SIDE, AWAKE. KEEP ON TOUCHING THINGS ON HIS BEDSIDE TABLE. INQUIRED IF HE WANTS TO HAVE SNACK, STATED "NO, I'M OK".
--- NOTE | 2018-04-23 22:30 | NUR ---
GET OUT OF BED AND FIX HIS BEDDINGS TWO TIMES, ADVISED TO GO BACK TO SLEEP.
--- NOTE | 2018-04-23 23:00 | NUR ---
IN BED, TALKING TO SELF. NO AGITATION NOTED.
--- NOTE | 2018-04-24 | NUR ---
SLEEPING COMFORTABLY IN BED.
[2018-04-24 00:07] VITALS: BP 136/75
[2018-04-24 04:00] VITALS: BP 110/53
--- NOTE | 2018-04-24 04:50 | NUR ---
MANAGER PLAY DRAW BLOOD FOR AM LAB TEST, COOPERATIVE.
--- NOTE | 2018-04-24 06:45 | NUR ---
WOKE UP ASKED NURSE WHERE IS THE BR, REORIENTED TO HOSPITAL SETTING. ORTHOSTATIC BP TAKEN, STANDING - BP- 131/60, HR- 97, SITTING - 136/65, HR - 88, LYING - 158/77, HR - 74. CONDITION REMAIN STABLE. WILL ENDORSE TO AM NURSE FOR CONTINUITY OF CARE.
[2018-04-24 06:56] LABS: MAGNESIUM 1.9 mg/dL (1.8-2.4); PHOSPHORUS 3.2 mg/dL (2.5-4.9)
[2018-04-24 07:00] LABS: ANION GAP 9.3 (8-16); CARBON DIOXIDE 27.2 mmol/L (21-32); CHLORIDE 102 mmol/L (98-107); CREATININE 1.3 mg/dL (0.7-1.3); GLUCOSE 108 mg/dL (74-106); POTASSIUM 3.5 mmol/L (3.5-5.1); SODIUM SERUM 135 mmol/L (136-145); UREA NITROGEN, BLOOD 22 mg/dL (7-18)
--- NOTE | 2018-04-24 07:00 | NUR ---
ENDORSED TO AM NURSE FOR CONTINUITY OF CARE.
--- NOTE | 2018-04-24 07:01 | NUR ---
RECEIVED PATIENT REPORT FROM RESERVOIR ENGINEER NURSE AT BEDSIDE FOR CONTINUITY OF CARE. PATIENT LAYING IN BED AWAKE. NO SIGNS OF DISTRESS OR SOB NOTED ON ROOM AIR. RESPIRATIONS EVEN AND UNLABORED. PATIENT DENIES PAIN. NO IV ACCESS BECAUSE PATIENT REFUSED IV INSERTION. PATIENT ALSO REFUSED TELE MONITOR. SAFETY PRECAUTION IN PLACE, CALL LIGHT WITHIN REACH. WILL CONTINUE TO MONITOR PATIENT.
[2018-04-24 07:06] LABS: WHITE BLOOD COUNT (AUTO) 6.2 K/uL (4.8-10.8)
[2018-04-24 07:07] LABS: HEMATOCRIT 34.7 % (36-52); HEMOGLOBIN 11.6 g/dL (12.0-18.0); MEAN CORPUSCULAR HEMOGLOBIN 32 pg (27-31); MEAN CORPUSCULAR HGB CONC 33 g/dL (33-37); MEAN CORPUSCULAR VOLUME 96.9 fL (80-94); NEUTROPHILS % (AUTO) 56.6 % (42.2-75.2); PLATELET COUNT (AUTO) 202 K/uL (140-450); RED BLOOD CELL COUNT(AUTO) 3.58 MIL/uL (4.20-6.10); RED CELL DISTRIBUTION WIDTH 13.6 % (11.6-13.7)
[2018-04-24 07:08] LABS: BASOPHILS # (AUTO) 0.1 K/uL (0.00-0.22); BASOPHILS % (AUTO) 2.3 % (0.0-2.0); EOSINOPHILS # (AUTO) 0.2 K/uL (0-0.4); EOSINOPHILS % (AUTO) 3.9 % (0.0-4.0); LYMPHOCYTES # (AUTO) 1.7 K/uL (2.0-11.5); LYMPHOCYTES % (AUTO) 26.8 % (20.5-51.1); MONOCYTES # (AUTO) 0.6 K/uL (0.8-1.0); MONOCYTES % (AUTO) 10.4 % (1.7-9.3); NEUTROPHILS # (AUTO) 3.6 K/uL (1.8-7.7)
[2018-04-24 07:51] VITALS: BP 143/87
[2018-04-24] MEDS: MONTELUKAST SODIUM 10 MG TAB PO SCH (08:49)
[2018-04-24] MEDS: TAMSULOSIN 0.4 MG CAP PO SCH (08:49)
[2018-04-24] MEDS: metroNIDAZOLE 500 MG TAB PO SCH ×3 (08:49→17:47)
[2018-04-24] MEDS: MEMANTINE 10 MG TAB PO SCH ×2 (08:49→20:52)
[2018-04-24] MEDS: FINASTERIDE 5 MG TAB PO SCH (08:50)
[2018-04-24] MEDS: FAMOTIDINE 20 MG TAB PO SCH (08:50)
[2018-04-24] MEDS: LACTOBACILLUS RHAMNOSUS GG 1 EACH CAP PO SCH (08:50)
[2018-04-24] MEDS: FERROUS SULFATE 325 MG TABEC PO SCH (08:50)
[2018-04-24] MEDS: ALLOPURINOL 300 MG TAB PO SCH (08:51)
[2018-04-24] MEDS: DONEPEZIL 10 MG TAB PO SCH ×2 (08:51→20:52)
[2018-04-24] MEDS: ECOTRIN 81 MG TABEC PO SCH (08:52)
--- NOTE | 2018-04-24 08:55 | NUR ---
ORDERED MEDICATIONS GIVEN. PATIENT TOLERATED THEM WELL. RECEIVED CALL FROM RADIOLOGY ABOUT IMPENDING CT OF ABD/PELVIS WITHOUT CONTRAST. INFORMED PATIENT ABOUT TEST. PATIENT VERBALIZED UNDERSTANDING AND AGREES TO TEST STATING "OK, OK". SAFETY PRECAUTION IN PLACE, CALL LIGHT WITHIN REACH, WILL CONTINUE TO MONITOR PATIENT.
--- NOTE | 2018-04-24 09:05 | NUR ---
PATIENT TAKEN TO RADIOLOGY VIA WHEELCHAIR FOR CT OF ABD/PELVIS WITHOUT CONTRAST. PATIENT IN STABLE CONDITION.
--- NOTE | 2018-04-24 09:20 | NUR ---
PATIENT BACK FROM RADIOLOGY, WILL AWAIT FOR RESULTS. PATIENT NOW RESTING IN BED, RESPIRATIONS EVEN AND UNLABORED. NO SIGNS OF DISTRESS NOTED AT THIS TIME. INFORMED DR. ROBERTS ABOUT NO IV ACCESS. WILL WAIT FOR HIS ORDERS.
--- NOTE | 2018-04-24 10:12 | NUR ---
PATIENT SLEEPING, NO SIGNS OF DISTRESS OR SOB NOTED ON ROOM AIR. RESPIRATIONS EVEN AND UNLABORED. WILL CONTINUE TO MONITOR PATIENT.
--- NOTE | 2018-04-24 10:20 | NUR ---
PATIENT'S SON JUVENTINO IN TO SEE THE PATIENT. UPDATED HIM ABOUT PATIENT'S STATUS AND PLAN OF CARE. JUVENTINO VERBALIZED UNDERSTANDING. WILL CONTINUE TO MONITOR PATIENT.
--- NOTE | 2018-04-24 10:48 | NUR ---
DOCTORS ROUNDING. WILL WAIT FOR THEIR UPDATED ORDERS.
[2018-04-24] MEDS: NACL 0.9% 1,000 ML IV SCH (11:10)
--- NOTE | 2018-04-24 11:57 | NUR ---
PATIENT SLEEPING, RESPIRATIONS EVEN AND UNLABORED. SAFETY PRECAUTION IN PLACE, CALL LIGHT WITHIN REACH, WILL CONTINUE TO MONITOR PATIENT.
[2018-04-24 12:00] VITALS: BP 156/60
--- NOTE | 2018-04-24 12:23 | NUR ---
DR ROBERTS IN TO DO HIS ASSESSMENT. WILL WAIT FOR HIS UPDATED ORDERS.
--- NOTE | 2018-04-24 12:33 | NUR ---
PATIENT SITTING UP ON SIDE OF BED EATING LUNCH. ORDERED MEDICATION ADMINISTERED. PATIENT TOLERATED IT WELL. NO SIGNS OF DISTRESS OR SOB NOTED ON ROOM AIR. SAFETY PRECAUTION IN PLACE, CALL LIGHT WITHIN REACH. WILL CONTINUE TO MONITOR PATIENT.
[2018-04-24] MEDS ORDERED: SULFAMETH/TRIMETH 400/80MG 1 TAB PO SCH (13:15)
--- NOTE | 2018-04-24 13:39 | NUR ---
PATIENT SLEEPING IN BED, NO SIGNS OF DISTRESS OR SOB NOTED ON ROOM AIR. RESPIRATIONS EVEN AND UNLABORED. SAFETY PRECAUTION IN PLACE. CALL LIGHT WITHIN REACH, WILL CONTINUE TO MONITOR PATIENT.
--- NOTE | 2018-04-24 14:04 | NUR ---
ORDERED MEDICATIONS GIVEN. PATIENT TOLERATED THEM WELL. SAFETY PRECAUTION IN PLACE, CALL LIGHT WITHIN REACH, WILL CONTINUE TO MONITOR PATIENT.
[2018-04-24] MEDS ORDERED: SULFAMETH/TRIMETH DS 800/160MG 1 TAB PO SCH (15:00)
[2018-04-24 16:00] VITALS: BP 138/61
--- NOTE | 2018-04-24 16:31 | NUR ---
LINENS AND GOWN CHANGED FOR PATIENT. PATIENT TOLERATED IT WELL. PATIENT NOW RESTING IN BED. NO SIGNS OF DISTRESS OR SOB NOTED ON ROOM AIR. PATIENT DENIES PAIN. OFFERED SNACK, PATIENT WANTED JELLO, JELLO GIVEN. SAFETY PRECAUTION IN PLACE, CALL LIGHT WITHIN REACH, WILL CONTINUE TO MONITOR PATIENT.
--- NOTE | 2018-04-24 18:09 | NUR ---
PATIENT FINISHED EATING DINNER, ORDERED MEDICATIONS GIVEN. PATIENT TOLERATED IT WELL. PATIENT WANTED TO AMBULATE. RN AND PATIENT AMBULATED ONE TURN AROUND [facility] FLOOR. PATIENT NOW BACK IN BED, NO SIGNS OF DISTRESS OR SOB NOTED ON ROOM AIR. WILL CONTINUE TO MONITOR PATIENT.
--- NOTE | 2018-04-24 18:18 | NUR ---
PATIENT WANDERING AROUND ROOM. ORIENTED PATIENT AND GOT HIM BACK INTO BED. WILL CONTINUE TO MONITOR PATIENT.
--- NOTE | 2018-04-24 18:53 | NUR ---
REPORT GIVEN TO PIPE CUTTER NURSE AT BEDSIDE FOR CONTINUITY OF CARE. PATIENT IN STABLE CONDITION.
--- NOTE | 2018-04-24 18:54 | NUR ---
RECD. AMBULATING INSIDE HIS ROOM, A/OX1, RESPIRATION EVEN AND UNLABORED. REORIENTED TO HOSPITAL SETTING. KEEP ON MOVING AROUND, TOUCHING THINGS, NOT KNOWING WHY HE IS DOING IT. PLAN OF CARE FOR THE SHIFT DISCUSSED. NEEDS REINFORCEMENT. DENIES PAIN 0/10.
--- NOTE | 2018-04-24 19:20 | NUR ---
REMINDED TO EAT DINNER. TRAY STILL UNTOUCHED ON THE BEDSIDE TABLE. REFUSED.
--- NOTE | 2018-04-24 19:40 | NUR ---
DR. YANIRA MILLS CAME AND EXAMINED PATIENT. WILL FOLLOW UP WITH ANY NEW ORDERS.
[2018-04-24 20:00] VITALS: BP 115/63
--- NOTE | 2018-04-24 20:52 | NUR ---
WAKEN UP FOR THE NIGHT MEDICATIONS. GO BACK TO SLEEP AFTER TAKING MEDS.
--- NOTE | 2018-04-24 23:00 | NUR ---
WOKE UP, LOOKING FOR THE BR. REORIENTED TO HOSPITAL SETTING. WENT BACK TO SLEEP AFTER VOIDING.
[2018-04-25] VITALS: BP 125/50
--- NOTE | 2018-04-25 02:30 | NUR ---
WOKE UP AND WALKED OUTSIDE DOOR, LOOKING FOR BR. GUIDED TO THE BR. HAD SMALL SOFT BLACKISH BM. ASSISTED TO CHANGED GOWN AND BEDDINGS CHANGED.
--- NOTE | 2018-04-25 02:40 | NUR ---
SLEEPING COMFORTABLY IN BED.
[2018-04-25 04:00] VITALS: BP 149/63
--- NOTE | 2018-04-25 06:20 | NUR ---
STILL SLEEPING COMFORTABLY IN BED. CONDITION REMAIN STABLE. WILL ENDORSE TO AM NURSE FOR CONTINUITY OF CARE.
--- NOTE | 2018-04-25 07:05 | NUR ---
ENDORSED TO AM NURSE FOR CONTINUITY OF CARE.
--- NOTE | 2018-04-25 07:06 | NUR ---
RECEIVED REPORT FROM HAND STITCHER NURSE, PT IS SLEEPING IN AT THIS TIME BUT EASILY AWAKEN, PT IS AAOX1, CONFUSED, AMBULATORY, SKIN IS INTACT, PT IS ON ROOM AIR, PT REFUSED IV INSERTION AND REFUSED TELE BOX AT THIS TIME, NO S/S OF RESPIRATORY DISTRESS OR DISCOMFORT NOTED, DISCUSSED PLAN OF CARE WITH PT, REINFORCEMENT IS NEEDED, SAFETY/FALL PRECAUTIONS ARE IN PLACE, CALL LIGHT WITHIN REACH, WILL CONTINUE TO MONITOR.
[2018-04-25 07:33] LABS: ANION GAP 10.3 (8-16); CARBON DIOXIDE 25.2 mmol/L (21-32); CHLORIDE 102 mmol/L (98-107); CREATININE 1.4 mg/dL (0.7-1.3); GLUCOSE 104 mg/dL (74-106); HEMATOCRIT 35.1 % (36-52); HEMOGLOBIN 11.7 g/dL (12.0-18.0); MEAN CORPUSCULAR HEMOGLOBIN 32 pg (27-31); MEAN CORPUSCULAR HGB CONC 33 g/dL (33-37); MEAN CORPUSCULAR VOLUME 96.7 fL (80-94); NEUTROPHILS % (AUTO) 65.3 % (42.2-75.2); PLATELET COUNT (AUTO) 193 K/uL (140-450); POTASSIUM 3.5 mmol/L (3.5-5.1); RED BLOOD CELL COUNT(AUTO) 3.63 MIL/uL (4.20-6.10); RED CELL DISTRIBUTION WIDTH 13.5 % (11.6-13.7); SODIUM SERUM 134 mmol/L (136-145); UREA NITROGEN, BLOOD 20 mg/dL (7-18); WHITE BLOOD COUNT (AUTO) 6.3 K/uL (4.8-10.8)
[2018-04-25 07:34] LABS: BASOPHILS # (AUTO) 0.1 K/uL (0.00-0.22); BASOPHILS % (AUTO) 1.4 % (0.0-2.0); EOSINOPHILS # (AUTO) 0.2 K/uL (0-0.4); EOSINOPHILS % (AUTO) 2.5 % (0.0-4.0); LYMPHOCYTES # (AUTO) 1.3 K/uL (2.0-11.5); LYMPHOCYTES % (AUTO) 20.5 % (20.5-51.1); MONOCYTES # (AUTO) 0.6 K/uL (0.8-1.0); MONOCYTES % (AUTO) 10.3 % (1.7-9.3); NEUTROPHILS # (AUTO) 4.1 K/uL (1.8-7.7)
[2018-04-25 08:00] VITALS: BP 153/69
[2018-04-25] MEDS: LACTOBACILLUS RHAMNOSUS GG 1 EACH CAP PO SCH (08:47)
[2018-04-25] MEDS: MEMANTINE 10 MG TAB PO SCH ×2 (08:48→22:03)
[2018-04-25] MEDS: metroNIDAZOLE 500 MG TAB PO SCH ×3 (08:48→17:47)
[2018-04-25] MEDS: ECOTRIN 81 MG TABEC PO SCH (08:48)
[2018-04-25] MEDS: DONEPEZIL 10 MG TAB PO SCH ×2 (08:48→22:03)
[2018-04-25] MEDS: FINASTERIDE 5 MG TAB PO SCH (08:49)
[2018-04-25] MEDS: SULFAMETH/TRIMETH DS 800/160MG 1 TAB PO SCH ×2 (08:49→22:03)
[2018-04-25] MEDS: TAMSULOSIN 0.4 MG CAP PO SCH (08:49)
[2018-04-25] MEDS: FERROUS SULFATE 325 MG TABEC PO SCH (08:49)
[2018-04-25] MEDS: MONTELUKAST SODIUM 10 MG TAB PO SCH (08:49)
[2018-04-25] MEDS: FAMOTIDINE 20 MG TAB PO SCH (08:49)
[2018-04-25] MEDS: ALLOPURINOL 300 MG TAB PO SCH (08:50)
[2018-04-25 12:00] VITALS: BP 95/59
--- NOTE | 2018-04-25 12:05 | NUR ---
PT SITTING UP IN BED EATING LUNCH AT THIS TIME.
--- NOTE | 2018-04-25 12:40 | NUR ---
Firewall Administrator Notes: I Faxed [facility] at [phone] Patient's Clinical information, Order for Home Health for Physical Therapy.
--- NOTE | 2018-04-25 13:43 | NUR ---
PT NOTES CHART REVIEWED AND CLEARED FOR PT BY RN. PATIENT IN SEMIFOWLER POSITION SLEEPING AND EASILY AROUSED. PATIENT DECLINES PARTICIPATION IN THERAPY DESPITE MUCH EDUCATION/MOTIVATION PROVIDED. PATIENT PERSISTENT ON WANTING TO REST AND STATED, "LEAVE ME ALONE". TRAY AND CALL LIGHT IN REACH. RN MADE AWARE WILL ATTEMPT THERAPY NEXT SESSION IF POSSIBLE. (ATTEMPTED @1100) Addendum: 04/25/18 at 1510 by Sondra Moise PT PHYSICAL THERAPY CO-SIGN The Physical Therapy Progress Notes documented by Exterminator have been reviewed. Reviewed/Co-Signed by: Sondra Moise,PT Documentation Done by: Landon Potter, MAPPING ANALYST
--- NOTE | 2018-04-25 14:40 | NUR ---
Correctional Captain Notes Late Entry: I contacted Dick Aguirre at [facility] to confirm patient's acceptance for services. Per Dick Patient has been accepted for their services and will be scheduling an evaluation after patient's discharge. Dick stated that he faxed me Patient's acceptance; I confirmed with him I received it and I also let him know that Patient will be discharging tomorrow back to his facility. Dick thanked me and I ended the call
[2018-04-25 18:00] VITALS: BP 132/76
--- NOTE | 2018-04-25 19:15 | NUR ---
RECEIVED PT REPORT AT BEDSIDE. PT IN STABLE CONDITION. PT HAS NO IV ACCESS D/T REFUSAL. PT IS A/O X1. PT IS ON RA. SKIN IS INTACT. PT HAS NO C/O PAIN AT THIS TIME. BED LOCKED, LOWEST POSITION AND SIDE RAILS UP X2. CALL LIGHT IS WITHIN REACH. BOARD UPDATED. WILL CONTINUE TO MONITOR PT.
--- NOTE | 2018-04-25 19:15 | NUR ---
ENDORSED PT TO DIESEL POWERPLANT MECHANIC HELPER NURSE FOR CONTINUITY OF CARE, PT STABLE AT THIS TIME.
--- NOTE | 2018-04-25 21:20 | NUR ---
PT GOT UP OUT OF BED AND WALKED DOWN HALLWAY. ASSISTED PT BACK TO ROOM AND INTO BED.
--- NOTE | 2018-04-25 22:03 | NUR ---
ADMINISTERED PT MEDICATION. PT TOLERATED WELL. WILL CONTINUE TO MONITOR.
[2018-04-26] VITALS: BP 126/87
--- NOTE | 2018-04-26 00:05 | NUR ---
PT WALKING DOWN HALLWAY. ASSISTED PT BACK TO ROOM AND INTO BED. WILL CONTINUE TO MONITOR PT.
--- NOTE | 2018-04-26 02:14 | NUR ---
PT ASLEEP IN BED. NO S/SX OF DISTRESS WILL CONTINUE TO MONITOR.
--- NOTE | 2018-04-26 04:41 | NUR ---
NO CHANGE IN CONDITION. PT ASLEEP IN BED. WILL CONTINUE TO MONITOR.
--- NOTE | 2018-04-26 07:10 | NUR ---
ENDORSED PT TO DAY SHIFT NURSE FOR CONTINUITY OF CARE. PT IN STABLE CONDITION.
--- NOTE | 2018-04-26 07:15 | NUR ---
RECEIVED REPORT FROM ONCOLOGY NAVIGATOR NURSE, PT IS SLEEPING IN AT THIS TIME BUT EASILY AWAKEN, PT IS AAOX1, CONFUSED, AMBULATORY, SKIN IS INTACT, PT IS ON ROOM AIR, PT REFUSED IV INSERTION AND REFUSED TELE BOX AT THIS TIME, NO S/S OF RESPIRATORY DISTRESS OR DISCOMFORT NOTED, DISCUSSED PLAN OF CARE WITH PT, REINFORCEMENT IS NEEDED, SAFETY/FALL PRECAUTIONS ARE IN PLACE, CALL LIGHT WITHIN REACH, WILL CONTINUE TO MONITOR.
[2018-04-26 08:00] VITALS: BP 127/69
[2018-04-26 08:54] LABS: RED BLOOD CELL COUNT(AUTO) 3.74 MIL/uL (4.20-6.10); WHITE BLOOD COUNT (AUTO) 5.4 K/uL (4.8-10.8)
[2018-04-26 08:55] LABS: BASOPHILS % (AUTO) 2.3 % (0.0-2.0); EOSINOPHILS % (AUTO) 2.2 % (0.0-4.0); HEMATOCRIT 36.3 % (36-52); HEMOGLOBIN 11.9 g/dL (12.0-18.0); LYMPHOCYTES % (AUTO) 19.7 % (20.5-51.1); MEAN CORPUSCULAR HEMOGLOBIN 32 pg (27-31); MEAN CORPUSCULAR HGB CONC 33 g/dL (33-37); MEAN CORPUSCULAR VOLUME 97.1 fL (80-94); MONOCYTES % (AUTO) 11.4 % (1.7-9.3); NEUTROPHILS % (AUTO) 64.4 % (42.2-75.2); PLATELET COUNT (AUTO) 220 K/uL (140-450); RED CELL DISTRIBUTION WIDTH 13.8 % (11.6-13.7)
[2018-04-26] MEDS: FAMOTIDINE 20 MG TAB PO SCH (08:59)
[2018-04-26] MEDS: FINASTERIDE 5 MG TAB PO SCH (08:59)
[2018-04-26] MEDS: MEMANTINE 10 MG TAB PO SCH (08:59)
[2018-04-26] MEDS: ECOTRIN 81 MG TABEC PO SCH (08:59)
[2018-04-26] MEDS: MONTELUKAST SODIUM 10 MG TAB PO SCH (09:00)
[2018-04-26] MEDS: LACTOBACILLUS RHAMNOSUS GG 1 EACH CAP PO SCH (09:00)
[2018-04-26] MEDS: DONEPEZIL 10 MG TAB PO SCH (09:00)
[2018-04-26] MEDS ORDERED: CALCIUM CARB/VIT-D 500 MG/200 IU 1 TAB PO SCH (09:00)
[2018-04-26] MEDS: TAMSULOSIN 0.4 MG CAP PO SCH (09:00)
--- NOTE | 2018-04-26 09:00 | NUR ---
DUE MEDICATIONS GIVEN, PT TOLERATED WELL, CALL LIGHT WITHIN REACH, WILL CONTINUE TO MONITOR.
[2018-04-26] MEDS: FERROUS SULFATE 325 MG TABEC PO SCH (09:01)
[2018-04-26] MEDS: ALLOPURINOL 300 MG TAB PO SCH (09:01)
[2018-04-26 09:43] LABS: ANION GAP 12.8 (8-16); CARBON DIOXIDE 24.8 mmol/L (21-32); CHLORIDE 98 mmol/L (98-107); CREATININE 1.4 mg/dL (0.7-1.3); GLUCOSE 101 mg/dL (74-106); POTASSIUM 3.6 mmol/L (3.5-5.1); SODIUM SERUM 132 mmol/L (136-145); UREA NITROGEN, BLOOD 16 mg/dL (7-18)
--- NOTE | 2018-04-26 10:42 | NUR ---
CALLED [facility] ESTRADA AT [phone] AND SPOKE TO ONDINA. I LET HER KNOW THE PATIENT WOULD BE DISCHARGED TODAY AND WOULD BE GOING BACK. PER ONDINA, [facility] WOULD BE PICKING UP THE PATIENT.
--- NOTE | 2018-04-26 10:46 | NUR ---
I CALLED THE PATIENT'S SON JUVENTINO AT [phone], I REACHED HIS VOICEMAIL. I LET HIM KNOW I WAS CALLING FROM [facility] TO INFORM HIM THE PATIENT WOULD BE DISCHARGED TODAY AT 11:00 AM [facility].
--- NOTE | 2018-04-26 11:15 | NUR ---
Assembler Arranger Notes: I Called Samantha Landin at I spoke to Mariangel from admissions about patient's discharge today back to their facility with home health services from [facility]. 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 I Informed Mariangel that [facility] is aware about Patients discharge and will be scheduling an evaluation for patient to start home health Services as early as tomorrow. Mariangel Thanked me and I ended the call. Wound Specialist Katelyn and charge Nurse Elvia made aware.
--- NOTE | 2018-04-26 11:30 | NUR ---
PT DISCHARGE INSTRUCTIONS GIVEN, ID WRIST BAND REMOVED, PT STABLE UPON DISCHARGE ACCOMPANIED BY [facility] FROM [facility].
--- NOTE | 2018-04-26 14:25 | NUR ---
PHYSICAL THERAPY CO-SIGN The Physical Therapy Progress Notes documented by Manager Employee Benefits have been reviewed. I CONCUR W/ADJUSTER ARBITRATOR NOTE; Pt IS SHOWING PROGRESS W/POC, CONT PT Reviewed/Co-Signed by: Ping Guan, PT Documentation Done by: CARISSA RAMIREZ PTA Addendum: 04/26/18 at 1425 by Ping Guan PT Amended: Links added.
== END 2018-04-26 11:30 | disposition home health service (06) | DRG 64 ==
LOC: MED 10:41 → MTU 13:34
PROVIDERS: ADMIT General Practice; ATTEND General Practice
DX: I63.9 Cerebral infarction, unspecified (principal); N17.0 Acute kidney failure with tubular necrosis; G93.41 Metabolic encephalopathy; F02.81 Dementia in other diseases classified elsewhere, unspecified severity, with behavioral disturbance; N39.0 Urinary tract infection, site not specified; E87.1 Hypo-osmolality and hyponatremia; K56.7 Ileus, unspecified; G90.9 Disorder of the autonomic nervous system, unspecified; I95.1 Orthostatic hypotension; G30.9 Alzheimer's disease, unspecified; K21.9 Gastro-esophageal reflux disease without esophagitis; E86.0 Dehydration; E02 Subclinical iodine-deficiency hypothyroidism; E83.42 Hypomagnesemia; N40.0 Benign prostatic hyperplasia without lower urinary tract symptoms; M10.9 Gout, unspecified; K57.30 Diverticulosis of large intestine without perforation or abscess without bleeding; E66.3 Overweight; E83.51 Hypocalcemia; I73.9 Peripheral vascular disease, unspecified; K52.9 Noninfective gastroenteritis and colitis, unspecified; D64.9 Anemia, unspecified; Z79.2 Long term (current) use of antibiotics; Z79.1 Long term (current) use of non-steroidal anti-inflammatories (NSAID); Z79.82 Long term (current) use of aspirin; Z79.899 Other long term (current) drug therapy; Z87.442 Personal history of urinary calculi; Z68.25 Body mass index [BMI] 25.0-25.9, adult; Z91.14 Patient's other noncompliance with medication regimen
CPT/HCPCS: 36415; 70450; 71045; 74018; 74150; 80048; 80053; 81001; 82150; 82272; 82550; 83036; 83605; 83690; 83735; 83880; 84100; 84134; 84436; 84443; 84484; 85025; 85610; 85730; 87040; 87081; 87086; 93005; 93880; 96365; 97110; 97116; 97140; 97530; 99285; C1758; J0696; J3490; J7030; J7060; Q0092

== ENCOUNTER 2019-01-20 13:43 | Emergency (ER) | payer OTHER ==
[~2019-01-20] VITALS: Ht 188 cm; Wt 72.6 kg
[~2019-01-20 13:43] MED LIST changes: +CALC500T38 PO; +DIPRC TP; +FINA5TAB1 PO; -IBUP-974 PO; -LACT10CA PO; +METH1TAB50 PO; -METR500T1 PO; +MONT10TA35 PO; -PIPE1SOL IV; -SULF-58 PO; -SULF1TAB12 PO
--- NOTE | 2019-01-20 13:43 | NUR ---
Patient JC ACLMarcio from [facility], transferred to bed 8. RN evaluating patient at bedside.
[2019-01-20 13:44] VITALS: BP 123/45
--- NOTE | 2019-01-20 13:52 | NUR ---
Dr. Zheng evaluating patient at bedside.
--- NOTE | 2019-01-20 14:10 | NUR ---
BIBA FOR ALTERED MENTAL STATUS. PER EMS, PT WAS EGG HUNTING AND WAS NOT RESPONSIVE. ON ARRIVAL PT IS ALERT AND ORIENTED TO NAME. DENIES ANY PAIN. EPISODE OF VOMITING X1, GIVEN ZOFRAN 4MG IN ROUTE. PMH: DEMENTIA, METABOLIC ENCEPALOPATHY.
--- NOTE | 2019-01-20 14:11 | NUR ---
X-RAY AT BEDSIDE AT THIS TIME
--- NOTE | 2019-01-20 14:23 | NUR ---
LAB AT BEDSIDE
--- NOTE | 2019-01-20 14:38 | NUR ---
# 14 FR Urinary catheter inserted utilizing sterile technique. Immediate return of 100 ml CLEAR urine noted. Urine sample collected and sent to lab. Pt tolerated procedure WELL.
[2019-01-20 14:45] LABS: BASOPHILS % (AUTO) 0.5 % (0.0-2.0); EOSINOPHILS % (AUTO) 0.9 % (0.0-4.0); HEMATOCRIT 37.8 % (36-52); HEMOGLOBIN 12.7 g/dL (12.0-18.0); LYMPHOCYTES % (AUTO) 18.3 % (20.5-51.1); MEAN CORPUSCULAR HEMOGLOBIN 32 pg (27-31); MEAN CORPUSCULAR HGB CONC 34 g/dL (33-37); MEAN CORPUSCULAR VOLUME 96.6 fL (80-94); MONOCYTES # (AUTO) 0.5 K/uL (0.8-1.0); MONOCYTES % (AUTO) 8.9 % (1.7-9.3); NEUTROPHILS # (AUTO) 3.7 K/uL (1.8-7.7); NEUTROPHILS % (AUTO) 71.4 % (42.2-75.2); PLATELET COUNT (AUTO) 186 K/uL (140-450); RED BLOOD CELL COUNT(AUTO) 3.91 MIL/uL (4.20-6.10); RED CELL DISTRIBUTION WIDTH 14.1 % (11.6-13.7); WHITE BLOOD COUNT (AUTO) 5.2 K/uL (4.8-10.8)
[2019-01-20 14:52] LABS: APPEARANCE,URINE CLEAR (CLEAR); BILIRUBIN,URINE NEGATIVE (NEGATIVE); BLOOD, URINE 3+ (NEGATIVE); COLOR,URINE YELLOW (YELLOW); LEUKOCYTE ESTERASE ,URINE NEGATIVE (NEGATIVE); NITRITE, URINE NEGATIVE (NEGATIVE); UGLUCOSE NEGATIVE (NEGATIVE)
[2019-01-20 15:06] LABS: RBC,URINE TOO NUMEROUS TO COUN /HPF (0-5); WBC,URINE 0-5 /HPF (0-5)
[2019-01-20 15:11] LABS: ALBUMIN 3.2 g/dL (3.4-5.0); ANION GAP 11.3 (8-16); ASPARTATE AMINOTRANSFERASE 14 U/L (15-37); CARBON DIOXIDE 25.7 mmol/L (21-32); CHLORIDE 102 mmol/L (98-107); CREATININE 1.3 mg/dL (0.7-1.3); GLUCOSE 142 mg/dL (74-106); SODIUM SERUM 135 mmol/L (136-145); TOTAL BILIRUBIN 0.4 mg/dL (0.0-1.0); UREA NITROGEN, BLOOD 25 mg/dL (7-18)
--- NOTE | 2019-01-20 15:55 | NUR ---
PT DENBIES ANY NAUSEA OR PAIN. NO VOMITING NOTED. VSS.
--- NOTE | 2019-01-20 16:42 | NUR ---
PER ENTRY LEVEL ELECTRICAL ENGINEER JENNIFER [facility] WILL WASTE MACHINE OFFBEARER PT BY 1830. RETURNING TO [facility] RM 211.
--- NOTE | 2019-01-20 17:12 | NUR ---
PT PULLED OUT IV. CLEANED SITE AND COVERED WITH DRESSING, NO BLEEDING AT THIS TIME.
--- NOTE | 2019-01-20 18:12 | NUR ---
[facility] HERE FOR PT PICKUP.
--- NOTE | 2019-01-20 18:15 | NUR ---
Patient noted to have laceration on left upper arm upon arrival to ER. Site cleansed and covered with band aid. Physician informed.
--- NOTE | 2019-01-20 18:20 | NUR ---
Patient discharged with v/s stable. Written and verbal after care instructions given and explained. Patient verbalized understanding. Ambulance Transport ([facility]) with to [facility]. All questions addressed prior to discharge. Advised to follow up with PMD.
[2019-01-20 18:28] VITALS: BP 121/67
== END 2019-01-20 18:20 ==
LOC: MED 13:43
DX: R00.1 Bradycardia, unspecified (principal); R41.82 Altered mental status, unspecified; G93.41 Metabolic encephalopathy; N40.0 Benign prostatic hyperplasia without lower urinary tract symptoms; G30.9 Alzheimer's disease, unspecified; F02.80 Dementia in other diseases classified elsewhere, unspecified severity, without behavioral disturbance, psychotic disturbance, mood disturbance, and anxiety; K21.9 Gastro-esophageal reflux disease without esophagitis; Z79.82 Long term (current) use of aspirin; Z79.2 Long term (current) use of antibiotics; Z79.899 Other long term (current) drug therapy; Z79.1 Long term (current) use of non-steroidal anti-inflammatories (NSAID)
CPT/HCPCS: 36415; 70450; 71045; 80053; 81001; 82550; 84484; 85025; 93005; 99284; Q0092; 81025

== ENCOUNTER 2019-02-14 18:10 | Inpatient (IN) | payer OTHER ==
[~2019-02-14] VITALS: Ht 177.8 cm; Wt 81.6 kg
[2019-02-14] MEDS: NACL 0.9% 1,000 ML IV SCH
[2019-02-14 18:10] VITALS: BP 137/48
[~2019-02-14 18:10] MED LIST changes: +MELATONIN 3 MG TAB PO PRN
--- NOTE | 2019-02-14 18:12 | NUR ---
BIB ACL[facility] FROM [facility] FOR SYNCOPAL EPISODE LASTING A FEW SECONDS WHILE TRANSFERRING FROM CHAIR-CHAIR. PT GIVEN 500ML NS BOLUS AND 4MG ZOFRAN IVP VIA [facility]. PER EMS, PT WITH BORDERLINE 1ST DEGREE AVB ON 12LEAD. BLOOD GLUCOSE 155 AT THIS TIME. PT AOX2 (NAME, PLACE) WITH HX DEMENTIA. DENIES ANY PAIN. PT DOESN'T REMEMBER WHAT HAPPENED. FULL CLEAR SPEECH. PERRLA, BRISK 2 MM. EQUAL EDWARD STRENGTH UPPER AND LOWER EXTREMITIES. 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 HOB UP. BED SIDE RAILS UP X1. ON LOW BED POSITION, LOCKED. ER MADE AWARE OF PT STATUS.
--- NOTE | 2019-02-14 18:57 | NUR ---
LAB AT BEDSIDE
--- NOTE | 2019-02-14 19:04 | NUR ---
RADIOLOGY AT BEDSIDE
[2019-02-14 19:06] LABS: BASOPHILS % (AUTO) 0.2 % (0.0-2.0); EOSINOPHILS % (AUTO) 0.1 % (0.0-4.0); HEMOGLOBIN 11.7 g/dL (12.0-18.0); LYMPHOCYTES # (AUTO) 0.4 K/uL (2.0-11.5); LYMPHOCYTES % (AUTO) 6.6 % (20.5-51.1); MEAN CORPUSCULAR HEMOGLOBIN 32 pg (27-31); MEAN CORPUSCULAR HGB CONC 34 g/dL (33-37); MEAN CORPUSCULAR VOLUME 96.5 fL (80-94); MONOCYTES # (AUTO) 0.5 K/uL (0.8-1.0); MONOCYTES % (AUTO) 8.2 % (1.7-9.3); NEUTROPHILS # (AUTO) 5.7 K/uL (1.8-7.7); NEUTROPHILS % (AUTO) 84.9 % (42.2-75.2); PLATELET COUNT (AUTO) 194 K/uL (140-450); RED BLOOD CELL COUNT(AUTO) 3.62 MIL/uL (4.20-6.10); WHITE BLOOD COUNT (AUTO) 6.7 K/uL (4.8-10.8)
--- NOTE | 2019-02-14 19:15 | NUR ---
Pt report given to ANGEL Rene. Transfer of care at this time.
[2019-02-14 19:21] LABS: ANION GAP 13.1 (8-16); CARBON DIOXIDE 22.7 mmol/L (21-32); CHLORIDE 105 mmol/L (98-107); CREATININE 1.4 mg/dL (0.7-1.3); GLUCOSE 136 mg/dL (74-106); POTASSIUM 3.8 mmol/L (3.5-5.1); SODIUM SERUM 137 mmol/L (136-145); UREA NITROGEN, BLOOD 34 mg/dL (7-18)
--- NOTE | 2019-02-14 19:22 | NUR ---
Dr. Roque evaluating patient at bedside.
[2019-02-14 19:26] LABS: ALBUMIN 2.8 g/dL (3.4-5.0); ASPARTATE AMINOTRANSFERASE 37 U/L (15-37); TOTAL BILIRUBIN 0.4 mg/dL (0.0-1.0)
[2019-02-14] MEDS ORDERED: NACL 0.9% 1,000 ML IV ONE (19:30)
--- NOTE | 2019-02-14 19:40 | NUR ---
REQUESTED URINE FROM PT. IV FLUIDS RUNNING. PROVIDED WITH URINAL. PT STATES NO NEED TO URINATE AT THIS TIME. CONTINUE TO MONITOR.
--- NOTE | 2019-02-14 19:55 | NUR ---
PT RETURN FROM CT
[2019-02-14] MEDS ORDERED: ASPIRIN 81 MG TAB.CHEW PO ONE (20:25)
[2019-02-14] MEDS ORDERED: MULT-1868 PO (20:31)
[2019-02-14] MEDS ORDERED: FLOR250 PO (20:31)
--- NOTE | 2019-02-14 20:36 | NUR ---
PT IN BED RESTING WITH EYES OPEN. ALERT TO NAME, EVENT, PLACE. NO ALOC. ABLE TO VERBALIZE NEEDS AT THIS TIME. STATES CHRONIC LOWER BACK PAIN BUT TOLLERABLE. WHEEZING HEARD IN BILAT BASES. O2SAT 96% AT RA. NON-PRODUCTIVE COUGH. ER MD AWARE. CONTINUE TO MONITOR.
[2019-02-14] MEDS ORDERED: ZOLPIDEM 5 MG TAB PO PRN (21:00)
[2019-02-14] MEDS ORDERED: LORazepam 2 MG/ML VIAL IM/IVP PRN (21:00)
[2019-02-14] MEDS ORDERED: ONDANSETRON 4 MG/2 ML VIAL IM/IVP PRN (21:00)
[2019-02-14] MEDS ORDERED: DOCUSATE SODIUM 100 MG GELCAP PO PRN (21:00)
[2019-02-14] MEDS ORDERED: HYDROcodone/APAP 5/325 MG 1 TAB TAB PO PRN (21:00)
[2019-02-14] MEDS ORDERED: ACETAMINOPHEN 325 MG TAB PO PRN (21:00)
[2019-02-14] MEDS ORDERED: MEDICATION REC. PHARMACY CONS. 1 EA MISC MC PRN (21:10)
--- NOTE | 2019-02-14 21:15 | NUR ---
REPORT RECEIVED FROM ED NURSE AT BEDSIDE. PT IN STABLE CONDITION. AAOX1. PT IS SEVERELY CONFUSED. INTRODUCED SELF TO PT. BOARD UPDATED. PT HAS COMPLAINTS OF BACK PAIN. NO SOB. AFEBRILE. IV SITE R FA 18G RUNNING NS@100ML/HR PATENT AND INTACT. SKIN WARM, DRY, AND INTACT WITH NO OPEN WOUNDS. BED LOCKED IN LOW POSITION. CALL ARGUELLO WITHIN REACH. SAFETY PRECAUTIONS IN PLACE. ALL NEEDS MET AT THIS TIME.
[2019-02-14 21:50] LABS: PROTHROMBIN TIME 10.2 secs (10.8-13.4)
[2019-02-14 22:00] LABS: PHOSPHORUS 2.2 mg/dL (2.5-4.9); THYROID STIMULATING HORMONE 3.21 uIU/mL (0.34-3.74)
--- NOTE | 2019-02-14 22:00 | NUR ---
PT PULLED OUT HIS IV. CANNULA INTACT. WILL INSERT NEW IV.
--- NOTE | 2019-02-14 22:15 | NUR ---
NEW IV INSERTED L FA 22G. 1 ATTEMPT TAKEN. WRAPPED WITH KERLIX.
--- NOTE | 2019-02-14 23:10 | NUR ---
PT PULLED OUT IV AGAIN. CANNULA INTACT. WILL INSERT NEW IV.
--- NOTE | 2019-02-14 23:30 | NUR ---
NEW IV INSERTED L FA 22G. 1 ATTEMPT TAKEN. DATE, TIMED, AND INITIALED.
[2019-02-14] MEDS ORDERED: LORazepam 0.5 MG TAB PO PRN (23:45)
--- NOTE | 2019-02-14 23:50 | NUR ---
PT SEVERELY CONFUSED. MOVED PT TO BED 110A.
[2019-02-15] VITALS: BP 143/71
--- NOTE | 2019-02-15 00:35 | NUR ---
ORTHOSTATIC BP TAKEN. SUPINE 136/67. SITTING 131/68. PT UNABLE TO STAND.
--- NOTE | 2019-02-15 00:45 | NUR ---
110A NEEDED FOR DIFFERENT PT. MOVED TO 121A.
[2019-02-15 01:36] LABS: APPEARANCE,URINE SL CLOUDY (CLEAR); BILIRUBIN,URINE NEGATIVE (NEGATIVE); BLOOD, URINE 2+ (NEGATIVE); COLOR,URINE YELLOW (YELLOW); LEUKOCYTE ESTERASE ,URINE 1+ (NEGATIVE); NITRITE, URINE NEGATIVE (NEGATIVE); UGLUCOSE NEGATIVE (NEGATIVE)
--- NOTE | 2019-02-15 01:55 | NUR ---
CALLED [facility] U[facility] MULTIPLE TIMES WITH NO ANSWER.
[2019-02-15 02:00] LABS: RBC,URINE 20-50 /HPF (0-5); WBC,URINE 80-100 /HPF (0-5)
--- NOTE | 2019-02-15 02:30 | NUR ---
PT SLEEPING COMFORTABLY BUT AROUSABLE. PT STILL ATTEMPTING TO PULL ON HIS LINES WHILE AWAKE.
[2019-02-15 03:16] LABS: BASOPHILS % (AUTO) 0.2 % (0.0-2.0); EOSINOPHILS % (AUTO) 0.5 % (0.0-4.0); HEMATOCRIT 34.7 % (36-52); HEMOGLOBIN 11.7 g/dL (12.0-18.0); LYMPHOCYTES % (AUTO) 17.7 % (20.5-51.1); MEAN CORPUSCULAR HEMOGLOBIN 33 pg (27-31); MEAN CORPUSCULAR HGB CONC 34 g/dL (33-37); MEAN CORPUSCULAR VOLUME 96.7 fL (80-94); MONOCYTES # (AUTO) 0.6 K/uL (0.8-1.0); MONOCYTES % (AUTO) 9.7 % (1.7-9.3); NEUTROPHILS # (AUTO) 4.3 K/uL (1.8-7.7); NEUTROPHILS % (AUTO) 71.9 % (42.2-75.2); PLATELET COUNT (AUTO) 183 K/uL (140-450); RED BLOOD CELL COUNT(AUTO) 3.59 MIL/uL (4.20-6.10); WHITE BLOOD COUNT (AUTO) 5.9 K/uL (4.8-10.8)
--- NOTE | 2019-02-15 03:50 | NUR ---
[facility] CALLED IN [place] 0.109. NOTIFIED. AWAITING ORDERS.
[2019-02-15 04:00] VITALS: BP 133/76
[2019-02-15] MEDS ORDERED: hePARIN / DEXT 5% PREMIX 250 ML IV SCH (04:20)
[2019-02-15] MEDS ORDERED: HEPARIN PER PHARMACY MC PRN ×2 (04:20)
[2019-02-15] MEDS ORDERED: cefTRIAXone 1,000 MG VIAL ONE (04:33)
--- NOTE | 2019-02-15 04:45 | NUR ---
MD ORDERED HEPARIN DRIP FOR PATIENT BUT PT ALSO NEEDS A 1:1 SITTER DUE TO HIM PULLING OUT HIS IV LINES. HEPARIN DRIP WILL START AFTER 6 WHEN SITTER ARRIVES. UNTIL THEN, ORDERED 5000 UNITS HEPARIN SUBQ.
[2019-02-15 04:55] LABS: CHLORIDE 104 mmol/L (98-107); CREATININE 1.2 mg/dL (0.7-1.3); GLUCOSE 122 mg/dL (74-106); SODIUM SERUM 137 mmol/L (136-145); UREA NITROGEN, BLOOD 32 mg/dL (7-18)
[2019-02-15 04:56] LABS: MAGNESIUM 1.8 mg/dL (1.8-2.4); PHOSPHORUS 2.7 mg/dL (2.5-4.9)
--- NOTE | 2019-02-15 05:20 | NUR ---
HEPARIN GIVEN SUBQ. PT TOLERATED WELL.
[2019-02-15 05:46] LABS: CHOL/HDL RATIO 3.1 (1-4.5)
[2019-02-15] MEDS: PANTOPRAZOLE 40 MG TABEC PO SCH (06:03)
--- NOTE | 2019-02-15 06:03 | NUR ---
PROTONIX GIVEN PO. PT TOLERATED WELL.
[2019-02-15] MEDS: hePARIN / DEXT 5% PREMIX 250 ML IV SCH ×2 (06:24→14:49)
--- NOTE | 2019-02-15 06:24 | NUR ---
HEPARIN DRIP STARTED. COSIGNED WITH CHARGE NURSE. BOLUS GIVEN EARLIER SO NO BOLUS WAS GIVEN BEFORE ACTUAL DRIP START. RUNNING THROUGH ITS OWN PUMP ON A MAIN LINE TO R FA 22G. STICKERS PLACED ON BAG AND ON TUBING. RATE OF 9.8ML/HR OR 980 UNITS/HR. PUMP LOCKED.
--- NOTE | 2019-02-15 07:29 | NUR ---
REPORT GIVEN TO AM NURSE AT BEDSIDE. PT IN STABLE CONDITION.
--- NOTE | 2019-02-15 07:30 | NUR ---
RECEIVED BED SIDE REPORT FROM PENSION ADVISER RN. PT IN BED CURRENTLY TRYING TO GET OUT OF BED. TRIED TO REORIENT PT. PT CONTINUES TO TRY TO GET OUT OF BED. SITTER AT BEDSIDE. ON HEPARIN DRIP 980 UNITS/HR. APTT ORDERED THIS MORNING, STILL WAITING ON RESULT. PT HAS DIAPER ON. IV SITE ON R FOREARM 22G WITH HEPARIN DRIP RUNNING THROUGH LINE. R HAND 22G RUNNING NS 60ML/HR. ST/PT REQUEST. COPY OF ECHO REPORT FROM 2018 IN SOFT CHART. BED ALARM ON, WILL CONTINUE TO MONITOR.
[2019-02-15 08:00] VITALS: BP 142/71
[2019-02-15] MEDS: ALLOPURINOL 300 MG TAB PO SCH (08:53)
[2019-02-15] MEDS: POTASSIUM CHLORIDE 10 MEQ TABER PO SCH ×2 (08:53→20:55)
[2019-02-15] MEDS: ECOTRIN 81 MG TABEC PO SCH (08:54)
[2019-02-15] MEDS: DONEPEZIL 10 MG TAB PO SCH ×2 (08:54→20:54)
[2019-02-15] MEDS: MEMANTINE 10 MG TAB PO SCH ×2 (08:54→20:54)
[2019-02-15] MEDS: LACTOBACILLUS RHAMNOSUS GG 1 EACH CAP PO SCH (08:54)
[2019-02-15] MEDS: FINASTERIDE 5 MG TAB PO SCH (08:55)
[2019-02-15] MEDS: FERROUS SULFATE 325 MG TABEC PO SCH (08:55)
[2019-02-15] MEDS ORDERED: BETAMETHASONE DIPROP 0.05% 15 GM TUBE TP SCH (09:00)
--- NOTE | 2019-02-15 09:10 | NUR ---
PT COMPLAINED OF BACK PAIN 02/10. NORCO PRN AVAILABLE TO GIVE. WILL GIVE TO PT.
[2019-02-15 12:00] VITALS: BP 155/64
--- NOTE | 2019-02-15 12:15 | NUR ---
S.T. BEDSIDE SWALLOW EVAL COMPLETED See report for details. Pt presents with mild oral and moderate pharyngeal dysphagia c/b diffuse oral residue after swallow of cracker and consistent coughing after swallows of thin liquid from straw. Pt is at mod risk for aspiration. Recommend: 1) Continue mechanical soft chopped diet, nectar thick liquids. Straws ok. 2) P.O. meds as tolerated. 3) Nsg to assist w/ tray set up to promote safe self-feeding. 4) Aspiration precautions. No further tx indicated at this time. DC to nsg care. D/w ANGEL Rich at bedside. Time 1602-8851
--- NOTE | 2019-02-15 12:45 | NUR ---
US OF THE KIDNEYS BEING DONE, PT TOLERATING PROCEDURE WELL, WILL CONTINUE TO MONITOR
--- NOTE | 2019-02-15 13:28 | NUR ---
02/15/19 RD INITIAL ASSESSMENT COMPLETED PLEASE REFER TO NUTRITION ASSESSMENT UNDER CARE ACTIVITY FOR ESTIMATED NUTRITIONAL NEEDS. 1. CONTINUE MECHANICAL SOFT DIET TOLERATED 2. CONTINUE NECTAR THICK LIQUIDS 3. RECOMMEND ENSURE BID NECTAR THICK 4.. RD TO FOLLOW-UP 3-5 DAYS, MODERATE RISK PAGE GREWAL, RD
[2019-02-15 16:00] VITALS: BP 155/64
--- NOTE | 2019-02-15 16:44 | NUR ---
ORTHOSTATIC VS SUPINE: 175/82,69 SITTIN/80, 69 STANDIN/55, 83 PT TOLERATED ORTHOSTATIC VS
[2019-02-15] MEDS: NACL 0.9% 1,000 ML IV SCH (18:10)
--- NOTE | 2019-02-15 19:20 | NUR ---
ENDORSED PT WRAPPER STRIPPER RN. PT IN STABLE CONDITION.
--- NOTE | 2019-02-15 19:25 | NUR ---
RECEIVED BEDSIDE REPORT FROM DAY SHIFT NURSE. PATIENT IN BED WITH A SITTER. PATIENT IS CONFUSED AND TRIED TO REORIENT. RESPIRATION EVEN UNLABORED ON ROOM AIR. SKIN IS WARM AND DRY. IV PATENT AND INTACT. PLAN OF CARE WAS REVIEWED. ALL SAFETY MEASURES IN PLACE. BED IS AT LOW POSITION. BED ALARM ON. CALL LIGHT WITHIN REACH. WILL CONTINUE TO MONITOR
[2019-02-15 20:00] VITALS: BP 118/55
--- NOTE | 2019-02-15 20:00 | NUR ---
INITIAL ASSESSMENT DONE. VITALS WERE TAKEN. PATIENT IN STABLE CONDITION. SITTER AT BEDSIDE. WILL CONTINUE TO MONITOR
[2019-02-15] MEDS ORDERED: QUEtiapine FUMARATE 25 MG TAB PO ONE ×2 (20:20→20:35)
[2019-02-15] MEDS: MONTELUKAST SODIUM 10 MG TAB PO SCH (20:54)
--- NOTE | 2019-02-15 21:00 | NUR ---
ALL SCHEDULED MEDS WERE GIVEN AND TOLERATED THEM WELL. NO ASE NOTED. SITTER AT BEDSIDE. WILL CONTINUE TO MONITOR
--- NOTE | 2019-02-15 22:00 | NUR ---
PATIENT IN BED RESPIRATION EVEN UNLABORED ON ROOM AIR. REORIENT NO DISTRESS NOTED. SITTER AT BEDSIDE. WILL CONTINUE TO MONITOR.
[2019-02-15] MEDS ORDERED: QUEtiapine FUMARATE 25 MG TAB PO PRN (23:50)
[2019-02-16] VITALS: BP 238/66
--- NOTE | 2019-02-16 | NUR ---
VITALS WERE TAKEN. PATIENT IN STABLE CONDITION. PATIENT IS RESTLESS AND CANT FALL ASLEEP. PRN SLEEPING AID ADMINISTERED PER ORDER. WILL CONTINUE TO MONITOR
--- NOTE | 2019-02-16 00:30 | NUR ---
PATIENT IS CONFUSED AND KEEP TAKING OFF HIS TELE MONITOR. REORIENT AND EDUCATE THE RISK AND BENEFITS STILL REFUSED. WILL CONTINUE TO MONITOR
--- NOTE | 2019-02-16 02:00 | NUR ---
PATIENT SLEEPING RESPIRATION EVEN UNLABORED ON ROOM AIR. NO DISTRESS NOTED. SITTER AT BEDSIDE. WILL CONTINUE TO MONITOR.
[2019-02-16 04:00] VITALS: BP 146/61
--- NOTE | 2019-02-16 04:00 | NUR ---
VITALS WERE TAKEN. PATIENT STILL REFUSING TO BE ON TELE MONITOR. SITTER AT BEDSIDE. WILL CONTINUE TO MONITOR
[2019-02-16] MEDS ORDERED: CYCLOBENZAPRINE 10 MG TAB PO PRN ×2 (04:20→10:47)
[2019-02-16] MEDS: MORPHINE SULFATE 2 MG/ML SYR IVP PRN (04:35)
--- NOTE | 2019-02-16 04:35 | NUR ---
PATIENT COMPLAINED OF 7/10 BACK PAIN WHEN TURNING AND CHANGING SOILED LINENS. PRN PAIN MED ADMINISTERED. WILL CONTINUE TO MONITOR
[2019-02-16] MEDS: PANTOPRAZOLE 40 MG TABEC PO SCH (06:10)
[2019-02-16] MEDS: NACL 0.9% 1,000 ML IV SCH ×2 (06:12→13:35)
[2019-02-16 06:52] LABS: MAGNESIUM 1.7 mg/dL (1.8-2.4); PHOSPHORUS 2.4 mg/dL (2.5-4.9)
[2019-02-16 06:54] LABS: BASOPHILS % (AUTO) 0.4 % (0.0-2.0); EOSINOPHILS # (AUTO) 0.2 K/uL (0-0.4); EOSINOPHILS % (AUTO) 2.9 % (0.0-4.0); HEMATOCRIT 33.8 % (36-52); HEMOGLOBIN 11.4 g/dL (12.0-18.0); LYMPHOCYTES # (AUTO) 1.5 K/uL (2.0-11.5); LYMPHOCYTES % (AUTO) 21.2 % (20.5-51.1); MEAN CORPUSCULAR HEMOGLOBIN 32 pg (27-31); MEAN CORPUSCULAR HGB CONC 34 g/dL (33-37); MEAN CORPUSCULAR VOLUME 96.2 fL (80-94); MONOCYTES # (AUTO) 0.6 K/uL (0.8-1.0); MONOCYTES % (AUTO) 9.3 % (1.7-9.3); NEUTROPHILS # (AUTO) 4.6 K/uL (1.8-7.7); NEUTROPHILS % (AUTO) 66.2 % (42.2-75.2); PLATELET COUNT (AUTO) 195 K/uL (140-450); RED BLOOD CELL COUNT(AUTO) 3.51 MIL/uL (4.20-6.10); RED CELL DISTRIBUTION WIDTH 14.1 % (11.6-13.7); WHITE BLOOD COUNT (AUTO) 6.9 K/uL (4.8-10.8)
[2019-02-16 07:13] LABS: ANION GAP 13.3 (8-16); CARBON DIOXIDE 23.3 mmol/L (21-32); CHLORIDE 105 mmol/L (98-107); CREATININE 1.2 mg/dL (0.7-1.3); GLUCOSE 102 mg/dL (74-106); POTASSIUM 3.6 mmol/L (3.5-5.1); SODIUM SERUM 138 mmol/L (136-145); UREA NITROGEN, BLOOD 25 mg/dL (7-18)
--- NOTE | 2019-02-16 07:17 | NUR ---
RECEIVED BEDSIDE REPORT FROM ANGEL COREY. PT STABLE, SLEEPING, BUT EASILY AROUSABLE. NO SIGNS OF DISTRESS NOTED. SITTER AT BEDSIDE. NO REDNESS, SWELLING, OR INFLAMMATION NOTED ON IV SITE. CALL ARGUELLO WITHIN REACH. BED IN LOWEST POSITION, BED ALARM ON. SAFETY MEASURES IN PLACE. PLAN OF CARE REVIEWED.
--- NOTE | 2019-02-16 07:18 | NUR ---
ENDORSED PATIENT TO DAY SHIFT NURSE FOR CONTINUITY OF CARE. PATIENT IN STABLE CONDITION.
[2019-02-16 08:00] VITALS: BP 158/74
--- NOTE | 2019-02-16 08:00 | NUR ---
PT PUT BACK ON TELE MONITOR.
[2019-02-16 08:23] LABS: FOLIC ACID > 20.00 ng/mL (>3.0); HEPATITIS A ANTIBODY IGM Negative (Negative); HEPATITIS B CORE AB TOTAL Negative (Negative); HEPATITIS B SURFACE ANTIBODY Non Reactive (.); HEPATITIS B SURFACE ANTIGEN Negative (Negative)
[2019-02-16] MEDS ORDERED: QUEtiapine FUMARATE 25 MG TAB PO SCH ×2 (09:00→21:00)
[2019-02-16] MEDS ORDERED: LACTOBACILLUS RHAMNOSUS GG 1 EACH CAP PO SCH (09:00)
--- NOTE | 2019-02-16 09:30 | NUR ---
PT AT BEDSIDE.
[2019-02-16] MEDS: DONEPEZIL 10 MG TAB PO SCH (09:53)
[2019-02-16] MEDS: LACTOBACILLUS RHAMNOSUS GG 1 EACH CAP PO SCH (09:54)
[2019-02-16] MEDS: POTASSIUM CHLORIDE 10 MEQ TABER PO SCH ×2 (09:54→20:44)
[2019-02-16] MEDS: FERROUS SULFATE 325 MG TABEC PO SCH (09:54)
[2019-02-16] MEDS: MEMANTINE 10 MG TAB PO SCH ×2 (09:54→20:44)
[2019-02-16] MEDS: ECOTRIN 81 MG TABEC PO SCH (09:54)
[2019-02-16] MEDS: ALLOPURINOL 300 MG TAB PO SCH (09:55)
[2019-02-16] MEDS: FINASTERIDE 5 MG TAB PO SCH (09:55)
--- NOTE | 2019-02-16 09:55 | NUR ---
ADMINISTERED SCHEDULED MEDICATIONS, PT TOLERATED WELL. NO OTHER NEEDS AT THIS TIME. SITTER AT BEDSIDE.
--- NOTE | 2019-02-16 10:44 | NUR ---
MADE DR HODGE AWARE OF MAGNESIUM 1.7. WILL PUT IN NEW ORDERS.
[2019-02-16] MEDS ORDERED: MAGNESIUM OXIDE 400 MG TAB PO SCH (11:00)
--- NOTE | 2019-02-16 11:30 | NUR ---
BLOOD GLUCOSE LEVEL CHECKED PER DR HODGE'S ORDER, 118. PT STABLE.
[2019-02-16] MEDS: SODIUM PHOS / POTASSIUM PHOS 1 PKT PDR PO SCH ×2 (11:54→16:22)
[2019-02-16 12:00] VITALS: BP 142/57
--- NOTE | 2019-02-16 12:00 | NUR ---
ADMINISTERED SCHEDULED MEDIATIONS, PT TOLERATED WELL. NO OTHER NEEDS AT THIS TIME. SITTER AT BEDSIDE. VITAL SIGNS TAKEN, PT STABLE.
--- NOTE | 2019-02-16 13:37 | NUR ---
CHANGED IV BAG, PT TOLERATED WELL. PT STABLE, SLEEPING, BUT EASILY AROUSABLE.
--- NOTE | 2019-02-16 15:10 | NUR ---
PT STABLE, SLEEPING, BUT EASILY AROUSABLE. NO NEEDS AT THIS TIME.
[2019-02-16 16:00] VITALS: BP 121/50
--- NOTE | 2019-02-16 16:11 | NUR ---
FAXED ALL PAPER WORK TO [facility] , SPOKE WITH SHARON ,PER SHARON PT GOT ACCEPTED AND WILL ASSIGN ROOM TOMORROW.
--- NOTE | 2019-02-16 16:27 | NUR ---
ADMINISTERED SCHEDULED MEDICATION, PT TOLERATED WELL. VITAL SIGNS STABLE, SITTER AT BEDSIDE.
--- NOTE | 2019-02-16 18:20 | NUR ---
PT STABLE, SLEEPING, BUT EASILY AROUSABLE. NO NEEDS AT THIS TIME.
--- NOTE | 2019-02-16 19:30 | NUR ---
ENDORSED PT TO ANGEL GARCIA AND ANGEL DERAS FOR CONTINUITY OF CARE. PT STABLE.
--- NOTE | 2019-02-16 19:31 | NUR ---
RECEIVED REPORT FROM AM NURSE, DEVYN FLORES. PT IN BED SLEEPING. NO VISIBLE SIGNS OF DISTRESS, BREATHING EQUAL AND UNLABORED. PT HAS SITTER AT BEDSIDE. PT IV 22G IN RT FOREARM INTACT AND INFUSING WELL. SAFETY PRECAUTIONS IN PLACE, YELLOW GOWN, YELLOW SOCKS, YELLOW ARM BAND, BED IN LOW POSITION. PT HAS SITTER AT BEDSIDE. CALL LIGHT WITHIN REACH. WILL CONTINUE TO MONITOR.
[2019-02-16 20:05] VITALS: BP 151/60
[2019-02-16] MEDS: MONTELUKAST SODIUM 10 MG TAB PO SCH (20:44)
--- NOTE | 2019-02-16 23:00 | NUR ---
ROUNDED ON PT. PT SLEEPING, NO VISIBLE SIGNS OF DISTRESS. SITTER AT BEDSIDE. WILL CONTINUE TO MONITOR.
[2019-02-17] VITALS: BP 128/66
[2019-02-17] MEDS: MORPHINE SULFATE 2 MG/ML SYR IVP PRN (01:59)
--- NOTE | 2019-02-17 01:59 | NUR ---
PT C/O DISCOMFORT. PT REPOSITIONED AND GIVEN MEDICATION FOR DISCOMFORT. SITTER AT BEDSIDE. WILL CONTINUE TO MONITOR.
--- NOTE | 2019-02-17 04:00 | NUR ---
VITALS TAKEN. PT SLEEPING IN BED. NO VISIBLE SIGNS OF DISTRESS. BREATHING SYMMETRICAL AND UNLABORED. SAFETY PRECAUTIONS IN PLACE. SITTER AT BEDSIDE. WILL CONTINUE TO MONITOR.
[2019-02-17 04:03] VITALS: BP 146/76
--- NOTE | 2019-02-17 06:00 | NUR ---
ROUNDED ON PT. PT IN BED, AWAKE, ALERT AND ORIENTED TO SELF. SITTER AT BEDSIDE. SAFETY PRECAUTIONS IN PLACE. WILL CONTINUE TO MONITOR.
[2019-02-17] MEDS: PANTOPRAZOLE 40 MG TABEC PO SCH (06:25)
[2019-02-17] MEDS: SODIUM PHOS / POTASSIUM PHOS 1 PKT PDR PO SCH ×2 (06:28→11:33)
[2019-02-17 06:38] LABS: BASOPHILS % (AUTO) 0.4 % (0.0-2.0); EOSINOPHILS # (AUTO) 0.2 K/uL (0-0.4); EOSINOPHILS % (AUTO) 3.4 % (0.0-4.0); HEMATOCRIT 36.7 % (36-52); HEMOGLOBIN 12.4 g/dL (12.0-18.0); LYMPHOCYTES # (AUTO) 1.7 K/uL (2.0-11.5); LYMPHOCYTES % (AUTO) 23.6 % (20.5-51.1); MEAN CORPUSCULAR HEMOGLOBIN 33 pg (27-31); MEAN CORPUSCULAR HGB CONC 34 g/dL (33-37); MEAN CORPUSCULAR VOLUME 96.3 fL (80-94); MONOCYTES # (AUTO) 0.6 K/uL (0.8-1.0); MONOCYTES % (AUTO) 8.5 % (1.7-9.3); NEUTROPHILS # (AUTO) 4.5 K/uL (1.8-7.7); NEUTROPHILS % (AUTO) 64.1 % (42.2-75.2); PLATELET COUNT (AUTO) 181 K/uL (140-450); RED BLOOD CELL COUNT(AUTO) 3.82 MIL/uL (4.20-6.10); WHITE BLOOD COUNT (AUTO) 7.1 K/uL (4.8-10.8)
[2019-02-17 06:46] LABS: ANION GAP 10.1 (8-16); CARBON DIOXIDE 27.7 mmol/L (21-32); CHLORIDE 101 mmol/L (98-107); GLUCOSE 97 mg/dL (74-106); POTASSIUM 3.8 mmol/L (3.5-5.1); SODIUM SERUM 135 mmol/L (136-145); UREA NITROGEN, BLOOD 18 mg/dL (7-18)
[2019-02-17 06:51] LABS: MAGNESIUM 1.8 mg/dL (1.8-2.4); PHOSPHORUS 2.9 mg/dL (2.5-4.9)
--- NOTE | 2019-02-17 07:10 | NUR ---
ENDORSED TO AM NURSE, DEVYN FLORES. PT IN STABLE CONDITION.
--- NOTE | 2019-02-17 07:11 | NUR ---
RECEIVED BEDSIDE REPORT FROM ANGEL GARCIA AND ANGEL DERAS. PT STABLE, AWAKE, ALERT AND ORIENTED X1. NO SIGNS OF DISTRESS NOTED. SITTER AT BEDSIDE. NO REDNESS, SWELLING, OR INFLAMMATION NOTED ON IV SITE. CALL ARGUELLO WITHIN REACH. BED IN LOWEST POSITION, BED ALARM ON. SAFETY MEASURES IN PLACE. PLAN OF CARE REVIEWED.
[2019-02-17 08:00] VITALS: BP 156/65
[2019-02-17] MEDS: POTASSIUM CHLORIDE 10 MEQ TABER PO SCH (08:44)
[2019-02-17] MEDS: LACTOBACILLUS RHAMNOSUS GG 1 EACH CAP PO SCH (08:44)
[2019-02-17] MEDS: FERROUS SULFATE 325 MG TABEC PO SCH (08:45)
[2019-02-17] MEDS: MEMANTINE 10 MG TAB PO SCH (08:45)
[2019-02-17] MEDS: ALLOPURINOL 300 MG TAB PO SCH (08:45)
[2019-02-17] MEDS: FINASTERIDE 5 MG TAB PO SCH (08:45)
[2019-02-17] MEDS: ECOTRIN 81 MG TABEC PO SCH (08:46)
--- NOTE | 2019-02-17 08:55 | NUR ---
ADMINISTERED SCHEDULED MEDICATIONS, PT TOLERATED WELL. SITTER AT BEDSIDE.
--- NOTE | 2019-02-17 09:20 | NUR ---
PT AT THE BEDSIDE.
[2019-02-17] MEDS ORDERED: QUET25TA46 PO (09:46)
--- NOTE | 2019-02-17 10:39 | NUR ---
SHARON FROM [facility] [phone] CALLED , PATIENT CAN GO TO ROOM 8B AND [facility] ARRANGED TRANSPORT WITH [facility], BOOM MAN TIME BETWEEN 2-3 PM . NOTIFIED CHARGE NURSE DARI AND PRIMARY NURSE DEVYN FLORES
--- NOTE | 2019-02-17 11:35 | NUR ---
ADMINISTERED SCHEDULED MEDICATION, PT TOLERATED WELL. NO OTHER NEEDS AT THIS TIME.
[2019-02-17 12:00] VITALS: BP 153/60
--- NOTE | 2019-02-17 13:30 | NUR ---
REPORT GIVEN TO MARKO FROM [facility].
--- NOTE | 2019-02-17 13:40 | NUR ---
LEFT A MESSAGE TO PT'S SON JUVENTINO JOHNSON REGARDING HIS FATHER'S TRANSFER TO [facility].
--- NOTE | 2019-02-17 14:00 | NUR ---
D/C INSTRUCTIONS GIVEN TO MARKO FROM [facility], AND [facility] TO [facility]. PT STABLE, NO SIGNS OF DISTRESS NOTED. D/C IV, CATHETER TIP INTACT, BLEEDING CONTROLLED. SKIN INTACT, PNEUMONIA VACCINE RECEIVED IN 2017. PT BROUGHT ALL BELONGINGS. [facility].
== END 2019-02-17 14:00 | DRG 280 ==
LOC: MED 18:10 → MMU 20:36 → MTU 02-15 00:30
PROVIDERS: ADMIT General Practice; ATTEND General Practice
DX: I21.A1 Myocardial infarction type 2 (principal); N17.0 Acute kidney failure with tubular necrosis; E43 Unspecified severe protein-calorie malnutrition; N39.0 Urinary tract infection, site not specified; E86.0 Dehydration; G90.8 Other disorders of autonomic nervous system; R55 Syncope and collapse; G30.9 Alzheimer's disease, unspecified; F02.80 Dementia in other diseases classified elsewhere, unspecified severity, without behavioral disturbance, psychotic disturbance, mood disturbance, and anxiety; K21.9 Gastro-esophageal reflux disease without esophagitis; N40.0 Benign prostatic hyperplasia without lower urinary tract symptoms; K57.30 Diverticulosis of large intestine without perforation or abscess without bleeding; E83.39 Other disorders of phosphorus metabolism; D64.9 Anemia, unspecified; I51.7 Cardiomegaly; I34.0 Nonrheumatic mitral (valve) insufficiency; I27.20 Pulmonary hypertension, unspecified; E83.42 Hypomagnesemia; Z68.25 Body mass index [BMI] 25.0-25.9, adult
CPT/HCPCS: 36415; 70450; 71045; 76770; 80048; 80053; 81001; 82140; 82306; 82607; 82746; 82948; 83036; 83690; 83735; 83880; 84100; 84134; 84443; 84484; 85025; 85610; 85730; 86704; 86706; 86708; 86709; 86803; 87081; 87086; 87340; 92610; 93005; 93880; 97110; 97116; 97530; 99285; J0696; J1644; J2270; J7030; J7060; Q0092

== ENCOUNTER 2019-03-09 08:42 | Emergency (ER) | payer OTHER ==
[~2019-03-09] VITALS: Ht 182.9 cm; Wt 93.0 kg
[2019-03-09 08:42] VITALS: BP 136/80
[~2019-03-09 08:42] MED LIST changes: -CALC500T38 PO; -DONE5TAB6 PO; -MELATONIN 3 MG TAB PO PRN; +MULT-1868 PO; +QUET25TA46 PO
--- NOTE | 2019-03-09 08:45 | NUR ---
PT IS AOX1. ABLE TO CORRECTLY IDENTIFY NAME AND BIRTHDAY. UNABLE TO IDENTIFY CURRENT YEAR, LOCATION, PRESIDENT, OR HIS PERMANENT RESIDENCE. NO C/O AT THIS TIME. DENIES PAIN OR DISCOMFORT. DOES NOT KNOW WHY HE IS HERE OR WHO BROUGHT HIM HERE. HX DEMENTIA. PT AMBULATORY WITH ASSISTANCE, GAIT SLOW AND STEADY. DENIES WEAKNESS. EQUAL HAND STRENGTH BILATERALLY. IMPAIRED VISION ON RT EYE. IMPAIRED HEARING. LUNGS CTAB. S1 AND S2 NOTED, NO MURMURS. BEDRAILS UP X1. BED LOCKED & LOW. ERMD TO EVAL PATIENT.
--- NOTE | 2019-03-09 08:54 | NUR ---
DR. CORMIER AT BEDSIDE TO EVMAC PT.
[2019-03-09 09:09] LABS: BASOPHILS % (AUTO) 0.9 % (0.0-2.0); EOSINOPHILS # (AUTO) 0.1 K/uL (0-0.4); EOSINOPHILS % (AUTO) 1.4 % (0.0-4.0); HEMATOCRIT 36.5 % (36-52); HEMOGLOBIN 12.2 g/dL (12.0-18.0); LYMPHOCYTES # (AUTO) 1.2 K/uL (2.0-11.5); MEAN CORPUSCULAR HEMOGLOBIN 33 pg (27-31); MEAN CORPUSCULAR HGB CONC 33 g/dL (33-37); MEAN CORPUSCULAR VOLUME 97.6 fL (80-94); MONOCYTES # (AUTO) 0.5 K/uL (0.8-1.0); MONOCYTES % (AUTO) 10.3 % (1.7-9.3); NEUTROPHILS # (AUTO) 3.5 K/uL (1.8-7.7); NEUTROPHILS % (AUTO) 65.4 % (42.2-75.2); PLATELET COUNT (AUTO) 214 K/uL (140-450); RED BLOOD CELL COUNT(AUTO) 3.73 MIL/uL (4.20-6.10); RED CELL DISTRIBUTION WIDTH 14.3 % (11.6-13.7); WHITE BLOOD COUNT (AUTO) 5.3 K/uL (4.8-10.8)
[2019-03-09 09:18] LABS: ANION GAP 12.6 (8-16); CARBON DIOXIDE 27.5 mmol/L (21-32); CHLORIDE 103 mmol/L (98-107); CREATININE 1.3 mg/dL (0.7-1.3); GLUCOSE 88 mg/dL (74-106); POTASSIUM 4.1 mmol/L (3.5-5.1); SODIUM SERUM 139 mmol/L (136-145); UREA NITROGEN, BLOOD 23 mg/dL (7-18)
--- NOTE | 2019-03-09 10:30 | NUR ---
checked pt, pt stated he is fine. no sob or discomfort noted at this time.
--- NOTE | 2019-03-09 11:10 | NUR ---
PT VOIDS 20 CC URINE.
--- NOTE | 2019-03-09 11:39 | NUR ---
PT SLEEPING IN BED AT THIS MOMENT, COVERED WITH BLANKET.
[2019-03-09 11:56] LABS: BILIRUBIN,URINE NEGATIVE (NEGATIVE); BLOOD, URINE 2+ (NEGATIVE); COLOR,URINE YELLOW (YELLOW); LEUKOCYTE ESTERASE ,URINE 1+ (NEGATIVE); NITRITE, URINE NEGATIVE (NEGATIVE); UGLUCOSE NEGATIVE (NEGATIVE)
--- NOTE | 2019-03-09 12:19 | NUR ---
Pt provided with food tray.
[2019-03-09 12:29] LABS: APPEARANCE,URINE HAZY (CLEAR)
[2019-03-09 12:31] LABS: RBC,URINE 20-50 /HPF (0-5); WBC,URINE 20-60 /HPF (0-5)
[2019-03-09] MEDS ORDERED: cefTRIAXone 1,000 MG in LIDOCAINE MPF 1% - 5 mL VIAL 2.1 ML IM ONE (12:35)
--- NOTE | 2019-03-09 13:13 | NUR ---
REPORT GIVEN TO ROYA AT [facility]
--- NOTE | 2019-03-09 14:04 | NUR ---
REPORT TIVEN TO FREDY, PER FREDY, TRANSPORATION TEAM WILL COME TO [facility] IN 15 MINUTES.
--- NOTE | 2019-03-09 14:11 | NUR ---
PT'S INDUSTRIAL CHEMISTRY TEACHER ARIEL PRESENT TO BEDSIDE. D/C EDUCATION GIVEN TO BOTH PT AND INDUSTRIAL CHEMISTRY TEACHER. PER INDUSTRIAL CHEMISTRY TEACHER ARIEL SHE WILL GIVE RX OF KEFLEX TO NURSE IN PT'S FACILITY. PT WALKED OUT OF UNIT IN STABLE CONDITION.
[2019-03-09 14:12] VITALS: BP 135/78
== END 2019-03-09 14:11 | disposition home or self-care (01) ==
LOC: MED 08:42
DX: N39.0 Urinary tract infection, site not specified (principal); G30.9 Alzheimer's disease, unspecified; F02.80 Dementia in other diseases classified elsewhere, unspecified severity, without behavioral disturbance, psychotic disturbance, mood disturbance, and anxiety; K21.9 Gastro-esophageal reflux disease without esophagitis; I10 Essential (primary) hypertension; Z79.82 Long term (current) use of aspirin; Z79.899 Other long term (current) drug therapy; Z79.1 Long term (current) use of non-steroidal anti-inflammatories (NSAID)
CPT/HCPCS: 36415; 80048; 81001; 85025; 87086; 93005; 96372; 99284; J0696; J2001

== ENCOUNTER 2019-04-01 09:22 | Emergency (ER) | payer OTHER ==
[~2019-04-01] VITALS: Ht 170.2 cm; Wt 77.1 kg
[2019-04-01 09:32] VITALS: BP 113/52
--- NOTE | 2019-04-01 09:33 | NUR ---
83 Y MALE BIBA FOR WITNESSED SEIZURE FROM [facility]. SEIZURE APPROX 30 SECONDS LONG. POST SEIZURE AT THIS TIME. RESPONSIVE TO PAIN. UNRESPONSIVE TO NAME. PT ARMS FAIL WHEN LIFTED. INCOTNINENT. HX OF DEMENTIA. PER EMS, PT BASELINE IS ORIENTED TO SELF. HR 48. BS 138 AT THIS TIME. SEIZURE PRECAUTIONS IN PLACE. BED IS DOWN, LOCKED, BED RAIL X 1, ERMD TO SEE PT. HX OF SEIZURES
--- NOTE | 2019-04-01 09:34 | NUR ---
IV ESTABLISHED IN FIELD. ZOFRAN ADMINISTERED IN ROUTE
--- NOTE | 2019-04-01 09:44 | NUR ---
IRMA EMT AT BEDSIDE FOR EKG
--- NOTE | 2019-04-01 09:44 | NUR ---
NOTIFIED DR KAM REGARDING PT HR. DR KAM AT BEDSIDE.
--- NOTE | 2019-04-01 09:53 | NUR ---
PT RESPONDING TO HIS NAME. EQUAL ARM COMPUTER SCIENCES PROFESSOR. PUPILS 3 MM. ABLE TO WIGGLE TOES. EQUAL FACIAL SYMMETRY.
--- NOTE | 2019-04-01 09:54 | NUR ---
ALZHEIMERS, BPH, SYNCOPE, SEIZURES, ACUTE KIDNEY FAILURE, PMH- BRADYCARDIA, ALOC, METABOLIC ENCEPTHLOPATHY, GERD SEE MED REC
--- NOTE | 2019-04-01 09:54 | NUR ---
PT RESPONDING TO HIS NAME. EQUAL ARM GIFT OFFICER. PUPILS 3 MM. ABLE TO WIGGLE TOES. EQUAL FACIAL SYMMETRY.
--- NOTE | 2019-04-01 10:02 | NUR ---
LAB AT BEDSIDE
--- NOTE | 2019-04-01 10:05 | NUR ---
SON AT BEDSIDE
--- NOTE | 2019-04-01 10:09 | NUR ---
CALLED [facility] AND ASKED FOR PTS BASELINE HR. [facility] AND DO NOT KNOW HIS HR HISTORY. THEY STATE PTS SON IS ON HIS WAY TO ER.
[2019-04-01 10:23] LABS: BASOPHILS % (AUTO) 0.9 % (0.0-2.0); EOSINOPHILS # (AUTO) 0.1 K/uL (0-0.4); EOSINOPHILS % (AUTO) 1.2 % (0.0-4.0); LYMPHOCYTES # (AUTO) 0.9 K/uL (2.0-11.5); LYMPHOCYTES % (AUTO) 16.6 % (20.5-51.1); MEAN CORPUSCULAR HEMOGLOBIN 33 pg (27-31); MEAN CORPUSCULAR HGB CONC 33 g/dL (33-37); MEAN CORPUSCULAR VOLUME 97.8 fL (80-94); MONOCYTES # (AUTO) 0.4 K/uL (0.8-1.0); MONOCYTES % (AUTO) 7.4 % (1.7-9.3); NEUTROPHILS # (AUTO) 4.2 K/uL (1.8-7.7); NEUTROPHILS % (AUTO) 73.9 % (42.2-75.2); PLATELET COUNT (AUTO) 185 K/uL (140-450); RED BLOOD CELL COUNT(AUTO) 3.68 MIL/uL (4.20-6.10); RED CELL DISTRIBUTION WIDTH 13.9 % (11.6-13.7); WHITE BLOOD COUNT (AUTO) 5.6 K/uL (4.8-10.8)
[2019-04-01 10:35] LABS: ANION GAP 11.6 (8-16); CARBON DIOXIDE 29.6 mmol/L (21-32); CHLORIDE 101 mmol/L (98-107); CREATININE 1.2 mg/dL (0.7-1.3); GLUCOSE 139 mg/dL (74-106); POTASSIUM 4.2 mmol/L (3.5-5.1); SODIUM SERUM 138 mmol/L (136-145); UREA NITROGEN, BLOOD 20 mg/dL (7-18)
--- NOTE | 2019-04-01 10:38 | NUR ---
# 14 FR Urinary catheter inserted utilizing sterile technique. Immediate return of 50 ml YELLOW urine noted. Urine sample collected and sent to lab. Pt tolerated procedure WELL.
--- NOTE | 2019-04-01 10:45 | NUR ---
SON STATES HE WILL RETURN AFTER HE GOES HOME AND EATS AND SHOWERS
[2019-04-01 10:46] LABS: PROTHROMBIN TIME 9.8 secs (10.8-13.4)
[2019-04-01 11:05] LABS: ALBUMIN 3.1 g/dL (3.4-5.0); ASPARTATE AMINOTRANSFERASE 17 U/L (15-37); TOTAL BILIRUBIN 0.7 mg/dL (0.0-1.0)
[2019-04-01 11:12] LABS: BILIRUBIN,URINE NEGATIVE (NEGATIVE); COLOR,URINE YELLOW (YELLOW); LEUKOCYTE ESTERASE ,URINE TRACE (NEGATIVE); NITRITE, URINE NEGATIVE (NEGATIVE)
[2019-04-01 11:19] LABS: BLOOD, URINE 1+ (NEGATIVE); RBC,URINE 0-5 /HPF (0-5); UGLUCOSE NEGATIVE (NEGATIVE); WBC,URINE 0-5 /HPF (0-5)
[2019-04-01 11:21] LABS: APPEARANCE,URINE CLEAR (CLEAR)
--- NOTE | 2019-04-01 11:56 | NUR ---
PT BRADYCARDIA AT 51. PT ABLE TO RECALL HIS OWN NAME. UNABLE TO RECALL TIME, PLACE, OR EVENT. PT LAYING IN BED AND SIDE RAIL X 2. PT PLAYING WITH MONITOR CORDS. PT ABLE TO FOLLOW COMMANDS. EQUAL ARM OPERATOR SPECIALIST COMMUNICATIONS. FACIAL SYMMETRY. PT SPEAKS IN CLEAR AND FULL SENTENCES. PT RETURN TO BASELINE AT THIS TIME.
[2019-04-01] MEDS ORDERED: CEPH250C16 PO (12:42)
[2019-04-01] MEDS ORDERED: DONE5TAB6 PO (12:45)
--- NOTE | 2019-04-01 12:57 | NUR ---
PT LYING FLAT IN BED. PT DE AT 63. ALERT TO SELF.
--- NOTE | 2019-04-01 13:15 | NUR ---
PT SITTING UPRIGHT IN BED, EATING SANDWHICH.
--- NOTE | 2019-04-01 13:18 | NUR ---
TRANSPORT TEAM TO PICK PT UP AT APPROX 2:30
--- NOTE | 2019-04-01 14:15 | NUR ---
VSS AT THIS TIME. PT SITTING UP RIGHT IN BED. PT ORIENTED TO SELF.
[2019-04-01 15:02] VITALS: BP 109/73
--- NOTE | 2019-04-01 15:02 | NUR ---
Patient discharged with v/s stable. Written and verbal after care instructions given and explained. pt oriented to baseline. Ambulance Transport to [facility]. transport team provided with copy of labs, xray, ekg, etc to give to [facility].
== END 2019-04-01 15:02 | disposition home or self-care (01) ==
LOC: MED 09:22
DX: R56.9 Unspecified convulsions (principal); F03.90 Unspecified dementia, unspecified severity, without behavioral disturbance, psychotic disturbance, mood disturbance, and anxiety; K21.9 Gastro-esophageal reflux disease without esophagitis; I10 Essential (primary) hypertension; Z86.79 Personal history of other diseases of the circulatory system; Z79.899 Other long term (current) drug therapy
CPT/HCPCS: 36415; 36600; 71045; 80053; 81001; 82140; 82550; 82553; 82803; 83605; 83690; 83735; 83874; 83880; 84484; 85025; 85610; 85730; 87040; 87086; 93005; 99284; C1758; Q0092

== ENCOUNTER 2019-04-19 09:34 | Inpatient (IN) | payer OTHER ==
[~2019-04-19] VITALS: Ht 177.8 cm; Wt 80.7 kg
[~2019-04-19 09:34] MED LIST changes: +CEPH250C16 PO; -DIPRC TP; +DONE5TAB6 PO; -QUET25TA46 PO
--- NOTE | 2019-04-19 09:34 | NUR ---
Patient BIBA ACLS, transferred to bed 10. RN evaluating patient at bedside.
[2019-04-19 09:36] VITALS: BP 123/57
--- NOTE | 2019-04-19 09:40 | NUR ---
83/M BIBA C/O SEIZURE. PER EMS PT WAS SITTING IN CHAIR WHEN STAFF AT [facility] NOTICED PT START TO SHAKE, LASTING <30 SEC. PT AAOX2, COOPERATIVE. PT WAS SEEN 1 WEEK AGO FOR SAME SYMPTOMS. P DENIES N/V/D; SKIN IS PINK/WARM/DRY; AAOX2. LUNGS CLEAR BL; HR BRADYCADIA 51/MINS. PT DENIES ANY FEVER, CP, SOB, OR COUGH AT THIS TIME; PATIENT STATES PAIN OF 0/10 AT THIS TIME; PATIENT POSITIONED FOR COMFORT; HOB ELEVATED; BEDRAILS UP X2; BED DOWN. ER MADE AWARE OF PT STATUS. Addendum: 04/19/19 at 1304 by [email or web address] 2 CMS SCRATCHES TO MIDDLE SACRUM X 2
[2019-04-19] MEDS ORDERED: NACL 0.9% 1,000 ML IV ONE (09:52)
--- NOTE | 2019-04-19 10:03 | NUR ---
X-RAY AT BEDSIDE.
[2019-04-19] MEDS ORDERED: [UNRECOGNIZED DRUG - CODE] PO (10:05)
--- NOTE | 2019-04-19 10:10 | NUR ---
Dr. Coles evaluating patient at bedside.
[2019-04-19 10:19] LABS: BASOPHILS % (AUTO) 0.5 % (0.0-2.0); EOSINOPHILS # (AUTO) 0.1 K/uL (0-0.4); EOSINOPHILS % (AUTO) 1.1 % (0.0-4.0); HEMOGLOBIN 12.3 g/dL (12.0-18.0); LYMPHOCYTES # (AUTO) 0.8 K/uL (2.0-11.5); LYMPHOCYTES % (AUTO) 13.5 % (20.5-51.1); MEAN CORPUSCULAR HEMOGLOBIN 33 pg (27-31); MEAN CORPUSCULAR HGB CONC 33 g/dL (33-37); MONOCYTES # (AUTO) 0.5 K/uL (0.8-1.0); MONOCYTES % (AUTO) 8.5 % (1.7-9.3); NEUTROPHILS # (AUTO) 4.6 K/uL (1.8-7.7); NEUTROPHILS % (AUTO) 76.4 % (42.2-75.2); PLATELET COUNT (AUTO) 201 K/uL (140-450); RED BLOOD CELL COUNT(AUTO) 3.78 MIL/uL (4.20-6.10); RED CELL DISTRIBUTION WIDTH 14.1 % (11.6-13.7)
--- NOTE | 2019-04-19 10:27 | NUR ---
Patient taken to CT scan via gurney by [place].
--- NOTE | 2019-04-19 10:50 | NUR ---
Truman simons in [facility] - 04/19/19 at 1406 by [email or web address] NOELLE MONTIELS MILEY PER DR SHANNAN BRADEN.
--- NOTE | 2019-04-19 10:50 | NUR ---
RETAINED MCKINNEY'S CATH PER DR CAMPBELL ORDER.
[2019-04-19 11:05] LABS: URIC ACID 3.4 mg/dL (2.6-7.2)
[2019-04-19 11:06] LABS: CARBON DIOXIDE 25.2 mmol/L (21-32); CHLORIDE 106 mmol/L (98-107); POTASSIUM 3.7 mmol/L (3.5-5.1); SODIUM SERUM 140 mmol/L (136-145)
[2019-04-19 11:09] LABS: CREATININE 1.4 mg/dL (0.7-1.3); GLUCOSE 141 mg/dL (74-106); UREA NITROGEN, BLOOD 26 mg/dL (7-18)
[2019-04-19 11:10] LABS: ALBUMIN 3.2 g/dL (3.4-5.0); ASPARTATE AMINOTRANSFERASE 14 U/L (15-37); TOTAL BILIRUBIN 0.5 mg/dL (0.0-1.0)
[2019-04-19 12:01] LABS: APPEARANCE,URINE CLEAR (CLEAR); BILIRUBIN,URINE NEGATIVE (NEGATIVE); BLOOD, URINE 2+ (NEGATIVE); COLOR,URINE YELLOW (YELLOW); LEUKOCYTE ESTERASE ,URINE TRACE (NEGATIVE); NITRITE, URINE NEGATIVE (NEGATIVE); UGLUCOSE NEGATIVE (NEGATIVE)
[2019-04-19 12:23] LABS: RBC,URINE 11-20 (MOD) /HPF (0-5); WBC,URINE 80-100 /HPF (0-5)
[2019-04-19] MEDS ORDERED: ONDANSETRON 4 MG/2 ML VIAL IM/IVP PRN (13:00)
[2019-04-19] MEDS ORDERED: ACETAMINOPHEN 325 MG TAB PO PRN (13:00)
[2019-04-19] MEDS ORDERED: DOCUSATE SODIUM 100 MG GELCAP PO PRN (13:00)
[2019-04-19] MEDS ORDERED: HYDROcodone/APAP 7.5/325 MG 1 TAB PO PRN (13:00)
[2019-04-19 13:04] LABS: BARBITURATE, URINE NEG. ng/ml (NEG <=200); BENZODIAZEPINE, URINE NEG. ng/mL (NEG <=200); CANNABINOID, URINE NEG. ng/mL (NEG <=50); COCAINE, URINE NEG. ng/mL (NEG <=300); OPIATE, URINE NEG. ng/mL (NEG <=2000); PHENCYCLIDINE SCREEN,URINE NEG. ng/mL (NEG <=25)
[2019-04-19 14:01] VITALS: BP 120/52
--- NOTE | 2019-04-19 14:01 | NUR ---
Patient will be admitted to care of DR GIBBONS. Admited to [facility]. Will go to room 108 B. Belongings list completed. Report to DOROTEO ORTIZ.
--- NOTE | 2019-04-19 14:01 | NUR ---
PATIENT ARRIVED ON UNIT VIA GURNEY ACCOMPANIED BY ER NURSE. TRANSFER PATIENT TO BED AND POSITIONED PATIENT COMFORTABLY. PATIENT AAOX1 TO NAME ONLY AND FOLLOW SIMPLE COMMAND. RESPIRATION EVEN AND UNLABORED ON 2 LPM VIA NC. NO SIGNS OF DISTRESS NOTED. IV ON L HAND 20G, CLEAN AND INTACT, INFUSING PER MD ORDER. TWO SCRATCHES ON BUTTOCK NOTED, NON-BLEEDING AND DRY SCAB, PICTURE TAKEN, OTHERWISE, SKIN CLEAN AND DRY. MCKINNEY IN PLACE AND DRAINING YELLOW URINE. PATIENT IS UNABLE TO AMBULATE DUE TO NISA. WEAKNESS AT THIS TIME. PT EVALUATION HAS BEEN ORDER. INTRODUCED SELF AND ORIENTED PATIENT TO THE ROOM, HOW TO USE THE CALL LIGHT, BED REMOTE, TV, AND TELEPHONE. REINFORCEMENT NEEDED. APPLIED TELE MONITOR ON PATIENT. MRSA NARES TAKEN AND VITAL SIGNS TAKEN. FALL PRECAUTION AND SEIZURE PRECAUTION INITIALED. SAFETY MEASURES IN PLACE. BED IN LOW POSITION AND CALL LIGHT WITHIN REACH. BED ALARM ACTIVATED.
[2019-04-19 14:06] LABS: PROTHROMBIN TIME 10.2 secs (10.8-13.4)
[2019-04-19 14:15] LABS: CHOL/HDL RATIO 3.2 (1-4.5); PHOSPHORUS 3.1 mg/dL (2.5-4.9); THYROID STIMULATING HORMONE 7.56 uIU/mL (0.34-3.74)
[2019-04-19] MEDS: DEXT 5% /NACL 0.9% 1,000 ML IV SCH (14:23)
--- NOTE | 2019-04-19 14:30 | NUR ---
PATIENT PULLED OUT IV LINE, REMOVED TELE MONITOR AND ATTEMPTED TO PULL OUT MCKINNEY. CHECKED IV CANNULA, INTACT AND COMPLETED, MINIMAL BLEEDING ON IV SITE. REORIENTED PATIENT AND EDUCATED PATIENT THE IMPORTANCE OF HAVING IV ACCESS AND NOT REMOVING TUBING. PATIENT REPLIED " I DON'T KNOW WHAT HAPPENED." RESTARTED NEW IV ON RIGHT HAND 22G, WRAP AROUND WITH KERLIX, INFUSING PER MD ORDER.
--- NOTE | 2019-04-19 14:50 | NUR ---
PATIENT ATTEMPTED TO REMOVE IV AND MCKINNEY CATHETER. REORIENTED PATIENT AND PROVIDED EDUCATION. NOTIFIED DR RIDDLE THAT PATIENT ATTEMPTED TO REMOVE IV, MCKINNEY AND TELE MONITOR. PER DR RIDDLE, HE WILL ORDER NON-BEHAVIOR RESTRAINT TO PREVENT PATIENT FROM REMOVING LINE.
--- NOTE | 2019-04-19 15:15 | NUR ---
ATTEMPTED TO REMOVE MITTEN AND GET OUT OF BED. REORIENTED PATIENT AND EDUCATION PROVIDED. REINFORCEMENT NEEDED. REPOSITIONED PATIENT COMFORTABLY ON BED. SAFETY MEASURES IN PLACE. BED IN LOW POSITION AND CALL LIGHT WITHIN REACH. BED ALARM ACTIVATED.
[2019-04-19 16:00] VITALS: BP 131/58
[2019-04-19] MEDS ORDERED: MECLIZINE 25 MG TAB PO PRN (16:25)
[2019-04-19] MEDS ORDERED: LORazepam 0.5 MG TAB PO PRN (16:25)
[2019-04-19] MEDS ORDERED: LORazepam 2 MG/ML VIAL IVP PRN (16:40)
--- NOTE | 2019-04-19 17:25 | NUR ---
PATIENT TOOK OUT THE MITTENS AND PULLED OUT IV AND PATIENT ATTEMPTED TO GET OUT OFF BED. CHECKED IV CANNULA INTACT, MINIMAL BLEEDING AT IV SITE. RESTARTED IV ON RFA 22G, INFUSING AT PER MD ORDER. REORIENTED PATIENT AND EDUCATED PATIENT NOT TO REMOVED IV, REINFORCEMENT NEEDED. SAFETY MEASURES IN PLACE. BED IN LOW POSITION AND CALL LIGHT WITHIN REACH. BED ALARM ACTIVATED.
--- NOTE | 2019-04-19 19:10 | NUR ---
ENDORSED PATIENT AT BEDSIDE TO EMS COORDINATOR NURSE FOR CONTINUITY OF CARE. PATIENT AWAKE AND CELLOPHANE WORKER IS FEEDING PATIENT AT BEDSIDE. NO SIGNS OF DISTRESS NOTED. SAFETY MEASURES IN PLACE. BED IN LOW POSITION AND BED ALARM ACTIVATED.
--- NOTE | 2019-04-19 19:11 | NUR ---
RECEIVED REPORT FROM AM NURSE. PT IN SITTING UP IN BED, AWAKE, ALERT AND ORIENTED TO NAME. VISIBLE CHEST RISE AND FALL WITH NO VISIBLE SIGNS OF DISCOMFORT ON ROOM AIR. PT RIGHT FOREARM 22G INTACT AND INFUSING WELL. MCKINNEY IN PLACE. PT ON RESTRAINTS. PT IS ASKING TO "CUT OFF THESE TIES". PT IS NOT REDIRECTABLE AT THIS TIME. FALL PRECAUTIONS IN PLACE. CALL LIGHT WITHIN REACH.
--- NOTE | 2019-04-19 19:50 | NUR ---
INVERTED BLOCK OPERATOR INFORMED PT HR NOTED 180 ON TELE MONITOR. CHECKED ON PT. PT SITTING IN BED AWAKE, NO VISIBLE SIGNS OF DISTRESS. PT DENIES ANY CHEST PAIN. BREATHING EQUAL AND UNLABORED. INFORMED RESIDENT .
[2019-04-19 20:00] VITALS: BP 141/66
--- NOTE | 2019-04-19 20:02 | NUR ---
DR. SILVA INSTRUCTED TO INFORM THEM IF PT HR >140. ORDERED STAT EKG.
[2019-04-19] MEDS: levETIRAcetam 1,000 MG in NACL 0.9% 100 ML IV SCH (21:10)
[2019-04-19] MEDS: levETIRAcetam 500 MG TAB PO SCH (21:10)
--- NOTE | 2019-04-19 21:10 | NUR ---
MEDICATIONS GIVEN TO PT. PT TOLERATED WELL. NO C/O DISCOMFORT. WILL CONTINUE TO MONITOR.
--- NOTE | 2019-04-19 21:15 | NUR ---
PT HR 160, INFORMED RESIDENT . RESIDENT CAME TO SEE PT.
--- NOTE | 2019-04-19 22:00 | NUR ---
PT REPOSITIONED FOR COMFORT WITH CHICKEN HANGER. PT ASKING FOR SCISSORS TO "CUT THESE THINGS OFF". PT REFERRING TO RESTRAINTS. PT ASKING TO GET OUT OF BED TO "WALK" PT REORIENTED BUT CONTINUES INSISTING ON GETTING OUT OF BED. WILL CONTINUE MONITOR.
--- NOTE | 2019-04-19 23:10 | NUR ---
SERVICE STATION OPERATOR CAME TO REPORT THAT PT IS PULLING BILATERAL ARMS AGAINST THE RESTRAINTS IN AN ATTEMPT TO GET OUT OF BED. WENT TO SEE PT. PT APPEARS AGITATED. REORIENTED PT BY EMPLANING THAT HE IS IN THE HOSPITAL AND NEEDS TO STAY IN BED. PT NOT REDIRECTABLE AT THIS TIME. PT CONTINUES TO ATTEMPT TO FIGHT RESTRAINTS IN AN ATTEMPT TO GET OUT OF BED. COVERED PT WITH BLANKETS AND TOLD PT IT IS TIME FOR SLEEP. PT AGREEABLE. WILL CONTINUE FREQUENT CHECKS ON PT. INFORMED RESIDENT MD OF PT INCREASING AGITATION.
[2019-04-20 00:05] VITALS: BP 121/70
--- NOTE | 2019-04-20 00:05 | NUR ---
VITALS TAKEN. PT PANTS AND BRIEF TAKEN OFF. PT HAD BM. PT CLEANED AND REPOSITIONED. PT ATTEMPTING TO PULL ON CATHETER. MCKINNEY CATH MOVED OUT OF REACH OF PT AND ADHERED TO LEG ATTACHMENT FOR SECURITY. PT CONTINUES TO BE AGITATED, ASKING FOR IV DRESSING TO BE REMOVED. PT NO LONGER ATTEMPTING TO GET OUT OF BED.
--- NOTE | 2019-04-20 02:10 | NUR ---
PT BED ALARM SOUNDED. PT OUT OF RESTRAINTS AND ATTEMPTING TO GET OUT OF BED. PT STATING "HELP ME GET OUT, I NEED TO GO." REORIENTING PT THAT HE IS IN THE HOSPITAL AND NEEDS TO STAY IN BED. PT NOT REDIRECTABLE AT THIS TIME. NO INJURIES NOTED. PT PLACED BACK ON RESTRAINTS. RESIDENT MD NOTIFIED OF PT AGITATION. WILL CONTINUE TO MONITOR.
--- NOTE | 2019-04-20 02:24 | NUR ---
PT GIVEN ATIVAN FOR AGITATION.
[2019-04-20] MEDS ORDERED: LORazepam 2 MG/ML VIAL IVP SCH (02:30)
--- NOTE | 2019-04-20 02:42 | NUR ---
PT HAD SMALL BM. PT CLEANED AND REPOSITIONED FOR COMFORT.
[2019-04-20 04:04] VITALS: BP 133/82
--- NOTE | 2019-04-20 05:15 | NUR ---
PT HAD LARGE BM, DARK GREEN. PT CLEANED AND REPOSITIONED FOR COMFORT.
[2019-04-20] MEDS: DEXT 5% /NACL 0.9% 1,000 ML IV SCH ×2 (05:39→22:19)
--- NOTE | 2019-04-20 06:00 | NUR ---
PT GOT OUT OF RESTRAINTS. PT UNSCREWED IV LINE FROM IV. LEFT FOREARM IV STILL INTACT. PT PULLING AT MCKINNEY CATH. PT CHANGED AND PLACED BACK ON RESTRAINTS. IV LINE MOVED OUT OF SIGHT, MCKINNEY TUBING MOVED OUT OF REACH.
--- NOTE | 2019-04-20 07:20 | NUR ---
ENDORSED TO AM NURSE. PT IN STABLE CONDITION.
[2019-04-20 07:29] LABS: ANION GAP 16.3 (8-16); CARBON DIOXIDE 22.2 mmol/L (21-32); CHLORIDE 105 mmol/L (98-107); CREATININE 1.1 mg/dL (0.7-1.3); GLUCOSE 115 mg/dL (74-106); POTASSIUM 3.5 mmol/L (3.5-5.1); SODIUM SERUM 140 mmol/L (136-145); UREA NITROGEN, BLOOD 19 mg/dL (7-18)
[2019-04-20 07:30] LABS: BASOPHILS % (AUTO) 0.6 % (0.0-2.0); EOSINOPHILS # (AUTO) 0.1 K/uL (0-0.4); EOSINOPHILS % (AUTO) 0.8 % (0.0-4.0); HEMATOCRIT 37.1 % (36-52); HEMOGLOBIN 12.6 g/dL (12.0-18.0); LYMPHOCYTES # (AUTO) 1.3 K/uL (2.0-11.5); LYMPHOCYTES % (AUTO) 14.9 % (20.5-51.1); MEAN CORPUSCULAR HEMOGLOBIN 33 pg (27-31); MEAN CORPUSCULAR HGB CONC 34 g/dL (33-37); MEAN CORPUSCULAR VOLUME 97.3 fL (80-94); MONOCYTES # (AUTO) 0.8 K/uL (0.8-1.0); NEUTROPHILS # (AUTO) 6.3 K/uL (1.8-7.7); NEUTROPHILS % (AUTO) 74.7 % (42.2-75.2); PLATELET COUNT (AUTO) 210 K/uL (140-450); RED BLOOD CELL COUNT(AUTO) 3.81 MIL/uL (4.20-6.10); RED CELL DISTRIBUTION WIDTH 13.9 % (11.6-13.7); WHITE BLOOD COUNT (AUTO) 8.4 K/uL (4.8-10.8)
--- NOTE | 2019-04-20 07:30 | NUR ---
RECEIVED PT FROM PM NURSE. PT AWAKE, ALERT BUT FORGETFUL. ASKED PT " HOW OLD ARE YOU? " PT ANSWERED " I AM 21". ON RA, NO S/S OF RESPIRATORY DISTRESS NOTED. PT HAS D5NS @ 60 CC. SITE INTACT AND PATENT. PT HAS BOTH UPPER EXTREMITIES RESTRAIN. CIRCULATION CHECKED WELL. NO BRUISE NOTED. PT HAS F/C WITH DARK TORIE NOTED. WILL CONTINUE TO MONITOR.
[2019-04-20 08:00] VITALS: BP 147/79
[2019-04-20] MEDS: FINASTERIDE 5 MG TAB PO SCH (08:11)
[2019-04-20] MEDS: levETIRAcetam 500 MG TAB PO SCH ×2 (08:11→20:46)
[2019-04-20] MEDS: ECOTRIN 81 MG TABEC PO SCH (08:11)
[2019-04-20] MEDS: ALLOPURINOL 300 MG TAB PO SCH (08:12)
[2019-04-20] MEDS: PANTOPRAZOLE 40 MG TABEC PO SCH (08:12)
[2019-04-20] MEDS: MONTELUKAST SODIUM 10 MG TAB PO SCH (08:12)
[2019-04-20] MEDS: TAMSULOSIN 0.4 MG CAP PO SCH (08:18)
--- NOTE | 2019-04-20 09:01 | NUR ---
PATIENT HAS BEEN SCREENED AND CATEGORIZED MODERATE NUTRITION RISK. PATIENT WILL BE SEEN WITHIN 3-5 DAYS OF ADMISSION. 04/22/19 04/24/[address]
--- NOTE | 2019-04-20 09:30 | NUR ---
PT ACCIDENTLY REMOVED HIS IV. REORIENTED PT AND REINSERTED IV TO RIGHT HAND # [id number].
[2019-04-20] MEDS: levETIRAcetam 1,000 MG in NACL 0.9% 100 ML IV SCH ×2 (09:45→22:00)
[2019-04-20 12:00] VITALS: BP 115/84
--- NOTE | 2019-04-20 12:58 | NUR ---
PT SLEEPING, OFFERED PT LUNCH TRAY, TRIED TO FEED PT. PT DOES NOT WANT TO EAT. PT WAS UNHAPPY WHEN CUSTOMER ENGAGEMENT ANALYST TRIED TO PUT FOOD IN PT"S MOUTH. VITALS WNL. WILL CONTINUE TO MONITOR.
--- NOTE | 2019-04-20 14:28 | NUR ---
PT IS AWAKE, FEED PT LUNCH, PT HAS A GOOD APPETITE.
--- NOTE | 2019-04-20 14:35 | NUR ---
PT PULLED OUT IV TUBING. ASSISTED PT TO BATH. PT HAS VERY SMALL AMOUNT OF HARD BM. NOTIFIED DR. RIDDLE. DR. RIDDLE ALSO MADE AWARE THAT PT HR DECREASED TO 40S AND 30 S WHILE PT WAS SLEEPING.
[2019-04-20] MEDS ORDERED: BISACODYL 10 MG SUPP RC PRN (15:15)
[2019-04-20] MEDS ORDERED: SODIUM PHOSPHATE 118 ML ENEM RC PRN (15:15)
--- NOTE | 2019-04-20 15:30 | NUR ---
ASSISTED PT TO BATH, PT HAD SMALL AMOUNT OF BM.
[2019-04-20 16:00] VITALS: BP 135/82
[2019-04-20] MEDS: DONEPEZIL 10 MG TAB PO SCH (16:27)
--- NOTE | 2019-04-20 17:55 | NUR ---
REMOVED F/C PER ORDER.
--- NOTE | 2019-04-20 19:15 | NUR ---
RECEIVED BEDSIDE REPORT FROM AM SHIFT NURSE FOR CONTINUITY OF CARE. PATIENT IS LYING DOWN, GREETED PATIENT WITH NO REPLY. PATIENT IS ON ROOM AIR, HAS RIGHT HAND 22G IV RUNNING WITH DEXTROSE 5% NS AT 60 ML/HR. SKIN IS INTACT, AMBULATES WITH ASSIST TO THE BATHROOM. PATIENT SHOWS NO SIGNS OF ANY DISTRESS. WILL MONITOR PATIENT THROUGHOUT THE SHIFT.
[2019-04-20 20:00] VITALS: BP 113/56
--- NOTE | 2019-04-20 20:00 | NUR ---
PATIENT IS OFF-RESTRAINT FOR OBSERVATION IN ANY BEHAVIORAL CHANGES. PATIENT IS COMPLYING AND SHOWING NO SIGNS OF CHANGES. WILL CONTINUE TO MONITOR PATIENT.
--- NOTE | 2019-04-20 20:41 | NUR ---
ADMINISTERED SCHEDULED PO MEDICATIONS ORDERED, CRUSHED IN APPLESAUCE. PATIENT TOLERATED THEM WELL. WILL CONTINUE TO MONITOR PATIENT.
[2019-04-20] MEDS: MEMANTINE 10 MG TAB PO SCH (20:46)
--- NOTE | 2019-04-20 21:15 | NUR ---
PATIENT IS LYING DOWN ASLEEP, STILL OFF THE RESTRAINTS. PATIENT IS CONTINUES TO BE MONITORED FOR ANY BEHAVIORAL CHANGES.
--- NOTE | 2019-04-20 22:45 | NUR ---
MADE ROUNDS. PATIENT LYING DOWN, ASLEEP, WITH NO SIGNS OF DISTRESS. WILL CONTINUE TO MONITOR PATIENT.
[2019-04-21] VITALS: BP_SYST 120; BP_SYST 127; BP_DIAS 63; BP_DIAS 77
--- NOTE | 2019-04-21 01:00 | NUR ---
VITAL SIGNS CHECKED AND CHARTED. PATIENT ASLEEP WITH NO SIGNS OF DISTRESS OR DISCOMFORT OR BEHAVIORAL CHANGES. NOTICED BLANKET WAS WET. ASSESSED IV SITE, IV WAS WRAPPED WITH KERLIX AND APPEARED TO BE WET, TOOK OFF WRAP, AND FOUND THAT IV WAS OUT, CATHETER WAS INTACT. MD NOTIFIED AND WAS OK TO WAIT UNTIL MORNING TO START A NEW IV LINE. WILL CONTINUE TO MONITOR PATIENT.
--- NOTE | 2019-04-21 02:15 | NUR ---
MADE ROUNDS. PATIENT LYING DOWN, ASLEEP WITH NO SIGNS OF DISTRESS OR DISCOMFORT. WILL CONTINUE TO MONITOR PATIENT.
[2019-04-21 04:00] VITALS: BP 133/73
--- NOTE | 2019-04-21 04:15 | NUR ---
PATIENT LYING DOWN, ASLEEP, WITH NO SIGNS OF DISTRESS. VITAL SIGNS CHECKED AND CHARTED.
--- NOTE | 2019-04-21 06:00 | NUR ---
MADE ROUNDS. PATIENT ASLEEP, WITH NO SIGNS OF DISTRESS. WILL CONTINUE TO MONITOR PATIENT.
--- NOTE | 2019-04-21 06:45 | NUR ---
INSERTED NEW IV LINE ON LEFT FOREARM, 22G, WITH D5NS RUNNING AT 60 ML/HR. IV PATENT AND INTACT. PATIENT TOLERATED IT WELL.
[2019-04-21 07:20] LABS: BASOPHILS % (AUTO) 0.6 % (0.0-2.0); EOSINOPHILS # (AUTO) 0.2 K/uL (0-0.4); EOSINOPHILS % (AUTO) 3.9 % (0.0-4.0); HEMATOCRIT 34.2 % (36-52); HEMOGLOBIN 11.4 g/dL (12.0-18.0); LYMPHOCYTES # (AUTO) 1.7 K/uL (2.0-11.5); LYMPHOCYTES % (AUTO) 30.6 % (20.5-51.1); MEAN CORPUSCULAR HEMOGLOBIN 33 pg (27-31); MEAN CORPUSCULAR HGB CONC 33 g/dL (33-37); MEAN CORPUSCULAR VOLUME 98.2 fL (80-94); MONOCYTES # (AUTO) 0.6 K/uL (0.8-1.0); MONOCYTES % (AUTO) 10.3 % (1.7-9.3); NEUTROPHILS # (AUTO) 3.1 K/uL (1.8-7.7); NEUTROPHILS % (AUTO) 54.6 % (42.2-75.2); PLATELET COUNT (AUTO) 188 K/uL (140-450); RED BLOOD CELL COUNT(AUTO) 3.48 MIL/uL (4.20-6.10); RED CELL DISTRIBUTION WIDTH 14.2 % (11.6-13.7); WHITE BLOOD COUNT (AUTO) 5.6 K/uL (4.8-10.8)
--- NOTE | 2019-04-21 07:20 | NUR ---
ENDORSED PATIENT TO AM SHIFT RN, WIN, FOR PATIENT'S CONTINUITY OF CARE. PATIENT IS LYING DOWN, APPEARS TO BE ASLEEP, WITH NO SIGNS OF DISTRESS.
--- NOTE | 2019-04-21 07:20 | NUR ---
RECEIVED BEDSIDE REPORT FROM ENTERPRISE APPLICATION DEVELOPER NURSE, PT IS ASLEEP AT THIS TIME, NO S/S OF ACUTE DISTRESS NOTED. PT IS ON ROOM AIR, SKIN INTACT. IV SITE IS ON THE L FA 22 G, INFUSING D5NS 60 ML/HR. FALL PRECAUTIONS AND SEIZURE PRECAUTIONS ARE IN PLACE. CALL LIGHT AND URINAL ARE WITHIN REACH.
[2019-04-21 07:31] LABS: ANION GAP 11.9 (8-16); CARBON DIOXIDE 25.8 mmol/L (21-32); CHLORIDE 105 mmol/L (98-107); CREATININE 1.1 mg/dL (0.7-1.3); GLUCOSE 100 mg/dL (74-106); POTASSIUM 3.7 mmol/L (3.5-5.1); SODIUM SERUM 139 mmol/L (136-145); UREA NITROGEN, BLOOD 22 mg/dL (7-18)
[2019-04-21 08:00] VITALS: BP 107/55
[2019-04-21] MEDS: FINASTERIDE 5 MG TAB PO SCH (09:00)
[2019-04-21] MEDS: ECOTRIN 81 MG TABEC PO SCH (09:00)
[2019-04-21] MEDS: MEMANTINE 10 MG TAB PO SCH ×2 (09:00→21:32)
[2019-04-21] MEDS: levETIRAcetam 500 MG TAB PO SCH ×2 (09:00→21:32)
[2019-04-21] MEDS: PANTOPRAZOLE 40 MG TABEC PO SCH (09:00)
[2019-04-21] MEDS: MONTELUKAST SODIUM 10 MG TAB PO SCH (09:00)
[2019-04-21] MEDS: TAMSULOSIN 0.4 MG CAP PO SCH (09:00)
[2019-04-21] MEDS: ALLOPURINOL 300 MG TAB PO SCH (09:01)
[2019-04-21] MEDS: DONEPEZIL 10 MG TAB PO SCH ×2 (09:01→16:24)
--- NOTE | 2019-04-21 09:45 | NUR ---
PT WALKING WITH PHYSICAL THERAPY AT THIS TIME
[2019-04-21] MEDS: levETIRAcetam 1,000 MG in NACL 0.9% 100 ML IV SCH ×2 (09:55→21:32)
--- NOTE | 2019-04-21 10:16 | NUR ---
PT HAD A BED BATH, CLEANED, CHANGED AND REPOSITIONED IN THE BED, LINENS CHANGED. TOLERATED WELL.
--- NOTE | 2019-04-21 10:40 | NUR ---
CALLED [facility] AT [phone], SPOKE TO VANI (INTAKE). MADE HIM AWARE OF THE ANTICIPATED DC RAMON FOR 04/23. HE PROVIDED ME WITH [phone]. ALL CLINICALS FAXED.
[2019-04-21 12:00] VITALS: BP 125/55
--- NOTE | 2019-04-21 12:54 | NUR ---
PT FOUND CONFUSED AND UP WALKING AROUND IN THE ROOM, URINATING ON THE FLOOR. PT LED BACK TO HIS BED, CLEANED UP THE PATIENT AND PUT ON NEW LINENS AND GOWN, AND EVS CLEANED UP THE FLOOR. PT ATE 95% OF HIS LUNCH AND WAS INSTRUCTED TO CALL FOR HELP IF NEED TO GET UP TO GO TO THE BATHROOM. PT ALSO HAS A URINAL AT HIS BEDSIDE.
--- NOTE | 2019-04-21 13:30 | NUR ---
VANI FROM [facility] CALLED, HE STATED THEY ARE ABLE TO ACCEPT PATIENT ON Wednesday04/23/2019 AND PROVIDED ME ROOM 209A AND ACCEPTING DOCTOR WILL BE DR. Lino GIBBONS. HE ALSO STATED THAT THEY CAN ARRANGE TRANSPORTATION. PROVIDED HIM OF THE UNIT'S PHONE NUMBER FOR TRANSPORTATION ETA FOR WEDNESDAY. CHARGE NURSE SOTERO MADE AWARE.
--- NOTE | 2019-04-21 13:39 | NUR ---
LEFT MESSAGE TO PATIENT'S SON JUVENTINO JOHNSON AT [phone], FOR PATIENT DC PLANNING FOR WEDNESDAY TO [facility].
[2019-04-21] MEDS: DEXT 5% /NACL 0.9% 1,000 ML IV SCH (14:59)
[2019-04-21 16:00] VITALS: BP 135/64
--- NOTE | 2019-04-21 16:29 | NUR ---
PT SLEEPING, NO S/S OF ANY DISTRESS NOTED.
--- NOTE | 2019-04-21 18:05 | NUR ---
PT EATING DINNER WITH ASSISTANCE FROM TECHNICIAN.
--- NOTE | 2019-04-21 19:15 | NUR ---
PT ENDORSED TO PLANT TENDER IN STABLE CONDITION.
--- NOTE | 2019-04-21 19:16 | NUR ---
Received endorsement from AM shift RN; patient A/Ox1, confused, Telugu speaking, ambulatory with assist. Introduced self, updated board. No SOB or distress noted, on room air. IV site on left forearm, 22 gauge, intact, running IVF at 60mL/hr. Skin intact. Bed in the lowest position, call light within reach. Initial assessment done. Will continue to monitor.
[2019-04-21 20:00] VITALS: BP 139/63
--- NOTE | 2019-04-21 20:35 | NUR ---
Vitals taken, no distress noted.
--- NOTE | 2019-04-21 21:47 | NUR ---
Due meds given, tolerated well.
--- NOTE | 2019-04-21 23:30 | NUR ---
Vitals taken, no distress noted.
[2019-04-22] VITALS: BP 128/57
--- NOTE | 2019-04-22 01:30 | NUR ---
PT IS IN BED. WITH SITTER AT BEDSIDE. ON AND OFF CONFUSED. Addendum: 04/23/19 at 0120 by Clemencia Clark RN CANCEL ABOVE NOTES. CAREGIVER MISTAKE.
--- NOTE | 2019-04-22 02:25 | NUR ---
Checks made; patient asleep, visible chest rise and fall noted.
[2019-04-22 04:00] VITALS: BP 122/61
--- NOTE | 2019-04-22 04:02 | NUR ---
Vitals taken; patient asleep on left lateral side, visible chest rise and fall noted.
[2019-04-22] MEDS: DEXT 5% /NACL 0.9% 1,000 ML IV SCH (04:42)
--- NOTE | 2019-04-22 07:05 | NUR ---
Endorsed patient to AM shift RN for continuity of care; patient in stable condition.
--- NOTE | 2019-04-22 07:10 | NUR ---
RECEIVED PT FROM COMPOSITION BOARD PRESS OPERATOR NURSETRIPP, PT IS ASLEEP AND LYING ON THE BED, AWAKEN AND HEART MONITOR WAS FIXED, PT HAS AN IV LINE ON THE LEFT FA G. 22 WITH D5 NS INFUSING AT 70ML/HR, INTACT, SIDE RAILS ARE UP AND CALL LIGHT WITHIN REACH, BED ALARM ACTIVATED, RESPIRATION IS EVEN ON RA AND NO SIGN OF DISTRESS NOTED. WILL MONITOR PT.
[2019-04-22 08:00] VITALS: BP 132/56
[2019-04-22] MEDS: TAMSULOSIN 0.4 MG CAP PO SCH (08:20)
[2019-04-22] MEDS: ECOTRIN 81 MG TABEC PO SCH (08:21)
[2019-04-22] MEDS: levETIRAcetam 500 MG TAB PO SCH ×2 (08:21→20:23)
[2019-04-22] MEDS: DONEPEZIL 10 MG TAB PO SCH ×2 (08:21→16:12)
[2019-04-22] MEDS: ALLOPURINOL 300 MG TAB PO SCH (08:22)
[2019-04-22] MEDS: PANTOPRAZOLE 40 MG TABEC PO SCH (08:22)
[2019-04-22] MEDS: FINASTERIDE 5 MG TAB PO SCH (08:22)
[2019-04-22] MEDS: MEMANTINE 10 MG TAB PO SCH ×2 (08:23→20:24)
[2019-04-22] MEDS: MONTELUKAST SODIUM 10 MG TAB PO SCH (08:23)
--- NOTE | 2019-04-22 08:23 | NUR ---
PT IS AWAKE AND JUST FINISHED EATING HIS BREAKFAST, ORAL MEDICATIONS WERE GIVEN, CRUSHED GIVEN WITH APPLE SAUCE, ASPIRATION PRECAUTION ENFORCED. PT TOLERATED THE MEDICATIONS AND WILL MONITOR PT.
[2019-04-22 12:00] VITALS: BP 125/54
--- NOTE | 2019-04-22 12:30 | NUR ---
PT PULLED OUT HIS IV LINE. WILL INFORM .
--- NOTE | 2019-04-22 12:57 | NUR ---
PT WAS TRANSFERRED TO MED-SURG NOW. HEART MONITOR HANDED ON TO MARK BALDERAS.
--- NOTE | 2019-04-22 13:15 | NUR ---
PT WAS PLACED AN IV LINE ON THE RT HAND G. 22.
[2019-04-22 16:00] VITALS: BP 149/65
--- NOTE | 2019-04-22 16:16 | NUR ---
PT WAS GIVEN IV ROCEPHIN AND ORAL MEDICATIONS, PT TOLERATED IT AND WILL [id number] PT.
--- NOTE | 2019-04-22 19:15 | NUR ---
ENDORSED PT TO RESEARCH ASSISTANT MEMBER NURSETHERON FOR CONTINUITY OF CARE, PT IS AWAKE AND LYING ON THE BED, WITH CLIENT FINANCE ANALYST, KIRAN SITTING FOR THE PT. PT IS STABLE AT THIS TIME.
--- NOTE | 2019-04-22 19:16 | NUR ---
RECEIVED PT IN STABLE CONDITION FROM AM NURSE. PT IS MED SURG. BED REST. WITH CONFUSION. NEED CONSTANT CHECK,TRYING TO GET OUT OF BED. AND WITH PREVIOUS PULLING OUT OF IV ACCESS. NO IV ACCESS AT THIS TIME AND AM NURSE SAID OK BY NOT TO START ANY ACCESS AT THIS TIME. BED ON LOW POSITION. SIDE RAILS UP X3. FREQUENT CHECK NEEDED. CALL LIGHT PLACED WITHIN EASY REACH. WILL CONTINUE TO MONITOR.
--- NOTE | 2019-04-22 20:24 | NUR ---
PT ABLE TO TAKE NIGHT PO MEDS WITH SOME APPLE SAUCE. TOLERATED WELL. SITTER AT BEDSIDE AT THIS TIME.
--- NOTE | 2019-04-22 22:30 | NUR ---
PT IS ON AND OFF CONFUSED. SITTER AT BEDSIDE. WILL CONTINUE TO MONITOR.
[2019-04-23] MEDS: DEXT 5% /NACL 0.9% 1,000 ML IV SCH (00:19)
--- NOTE | 2019-04-23 00:20 | NUR ---
ABLE TO GET VITAL SIGNS. STABLE . BUT STILL WITH CONFUSION.
[2019-04-23 00:34] VITALS: BP 134/70
--- NOTE | 2019-04-23 01:59 | NUR ---
PT IS SO AGITATED AND ANXIOUS. TRYING TO GET OUT OF BED. ATIVAN 0,5 MG PO GIVEN. WILL CONTINUE TO MONITOR.
--- NOTE | 2019-04-23 03:00 | NUR ---
PT STILL ON AND OFF TRYING TO GET OUT OF BED. REMINDED TO STAY IN BED.
--- NOTE | 2019-04-23 05:40 | NUR ---
ABLE TO START A NEW IV ACCESS G#24 ON THE RT HAND. CLEAR AND PATENT. WRAPPED WITH KERLIX TO PREVENT FROM PULLING OUT.
--- NOTE | 2019-04-23 06:41 | NUR ---
PT STILL TRYING TO GET OUT OF BED. BED ALARM ON. WILL CONTINUE TO MONITOR.
--- NOTE | 2019-04-23 06:56 | NUR ---
WILL ENDORSE PT IN STABLE CONDITION TO AM NURSE.
--- NOTE | 2019-04-23 07:05 | NUR ---
RECEIVED PT FROM STAFFING RECRUITER NURSETHERON, PT IS AWAKE AND LYING ON THE BED WITH IV LINE ON THE RT HAND G. 24 ON SALINE LOCK, PT IS VERY CONFUSED ATTEMPTING TO GET OUT OF THE BED, HEMATOMA NOTED ON THE RT FA, AND ERYTHEMA NOTED ON THE LEFT FA, PT IS ATTEMPTING TO SCRATCH IT, SIDE RAILS ARE UP AND CALL LIGHT WITHIN REACH, FALL PRECAUTION ENFORCED, BED ALARM ACTIVATED, NO SIGN OF DISTRESS NOTED AND WILL MONITOR PT.
--- NOTE | 2019-04-23 07:10 | NUR ---
PT'S IS TRYING TO PULL OUT HIS IV LINE, MD INFORMED AND MD SAID TO JUST TAKE IT OUT, ACKNOWLEDGED VERBAL ORDER FROM DR. RIDDLE, PT' IV LINE WAS REMOVED NOW.
[2019-04-23 08:00] VITALS: BP 129/59
[2019-04-23] MEDS: PANTOPRAZOLE 40 MG TABEC PO SCH (08:13)
[2019-04-23] MEDS: FINASTERIDE 5 MG TAB PO SCH (08:13)
[2019-04-23] MEDS: levETIRAcetam 500 MG TAB PO SCH (08:13)
[2019-04-23] MEDS: DONEPEZIL 10 MG TAB PO SCH (08:13)
[2019-04-23] MEDS: ALLOPURINOL 300 MG TAB PO SCH (08:14)
[2019-04-23] MEDS: TAMSULOSIN 0.4 MG CAP PO SCH (08:14)
[2019-04-23] MEDS: MONTELUKAST SODIUM 10 MG TAB PO SCH (08:14)
[2019-04-23] MEDS: MEMANTINE 10 MG TAB PO SCH (08:14)
[2019-04-23] MEDS: ECOTRIN 81 MG TABEC PO SCH (08:14)
[2019-04-23] MEDS ORDERED: HYDROCORTISONE 2.5% OINT 30 GM TUBE TP PRN (08:40)
--- NOTE | 2019-04-23 09:00 | NUR ---
INFORMED DR. RIDDLE REGARDING THE ERYTHEMA NOTED ON THE LEFT FA OF THE PT DUE TO SCRATCHING AND THE BRUISE ON THE RT FA.
[2019-04-23] MEDS ORDERED: CEPH500C16 PO (09:25)
[2019-04-23] MEDS ORDERED: LEVE1000 PO (09:26)
--- NOTE | 2019-04-23 09:57 | NUR ---
HYDROCORTISONE WAS APPLIED TO PT'S LEFT FA.
--- NOTE | 2019-04-23 11:12 | NUR ---
CALLED [facility] FOR PATIENT TRANSFER, SPOKE TO REID AND SHE SAID SHE WILL CALL [facility] AND SHE WILL CALL US BACK. WILL CONTINUE TO MONITOR.
--- NOTE | 2019-04-23 14:50 | NUR ---
TRANSPORT FROM [facility] CAME NOW WITH THE WHEELCHAIR WHILE WAITING FOR THE RN TO BE GIVEN REPORT OVER THE PHONE. [facility] WAS SUPPOSED TO INFORM CHARGE NURSE SOTERO OF THE TIME OF CAB DRIVER AND THE TRANSPORTATION BUT DID NOT RECEIVED ANY CALL AT ALL. CHARGE NURSE SOTERO WAS INFORMED.
--- NOTE | 2019-04-23 15:15 | NUR ---
DISCHARGED PT TO [facility] VIA WHEELCHAIR, ARM BAND REMOVED AND PT IS STABLE AT THIS TIME. TRANSPORTATION CAME WITHOUT PRIOR NOTIFICATION, REPORT WAS NOT GIVEN YET TO [facility] BECAUSE THEY SAID THAT THE RN WILL MAKE A CALL BACK IN 5 MINS BECAUSE THEY ARE AT THE MIDDLE OF SHIFT CHANGE, CHARGE NURSE, SOTERO WAS INFORMED.
--- NOTE | 2019-04-23 15:21 | NUR ---
CALLED [facility] AT [phone] AND GAVE REPORT TO ANGEL CHANCE REGARDING THE PT, INFORMED RN THAT PT WILL BE PLACE IN [address] UNDER [address] GIBBONS. INFORMED ANGEL CHANCE OF THE CARE AND MEDICATIONS GIVEN TO PT AND VERBALIZED UNDERSTANDING.
== END 2019-04-23 15:15 | DRG 100 ==
LOC: MED 09:34 → MTU 13:03
PROVIDERS: ADMIT General Practice; ATTEND General Practice
DX: G40.909 Epilepsy, unspecified, not intractable, without status epilepticus (principal); N17.0 Acute kidney failure with tubular necrosis; G93.41 Metabolic encephalopathy; N39.0 Urinary tract infection, site not specified; E44.1 Mild protein-calorie malnutrition; K21.9 Gastro-esophageal reflux disease without esophagitis; I10 Essential (primary) hypertension; I44.0 Atrioventricular block, first degree; E86.0 Dehydration; G30.9 Alzheimer's disease, unspecified; F02.80 Dementia in other diseases classified elsewhere, unspecified severity, without behavioral disturbance, psychotic disturbance, mood disturbance, and anxiety; M10.9 Gout, unspecified; K57.30 Diverticulosis of large intestine without perforation or abscess without bleeding; R33.9 Retention of urine, unspecified; N40.1 Benign prostatic hyperplasia with lower urinary tract symptoms; J45.909 Unspecified asthma, uncomplicated; Z68.25 Body mass index [BMI] 25.0-25.9, adult
CPT/HCPCS: 36415; 51702; 70450; 71045; 80048; 80053; 80305; 81001; 82140; 82150; 82550; 83036; 83605; 83690; 83735; 83880; 84100; 84436; 84439; 84443; 84479; 84484; 84550; 85025; 85610; 85730; 87081; 87086; 93005; 95816; 96360; 96361; 97110; 97116; 97161-GP; 97530; 99285; G0482; J0696; J1644; J1953; J2060; J7042; J7060; Q0092

== ENCOUNTER 2019-10-09 12:11 | Inpatient (IN) | payer OTHER ==
[~2019-10-09] VITALS: Ht 177.8 cm; Wt 71.7 kg
[2019-10-09 12:11] VITALS: BP 140/72
[~2019-10-09 12:11] MED LIST changes: -ACET-1087 PO; +ACET-1088 PO; -CEPH250C16 PO; +CEPH500C16 PO; -FERR-15 PO; -FLOR250 PO; +LEVE1000 PO
--- NOTE | 2019-10-09 12:11 | NUR ---
Patient BIBA ALS, transferred to bed 6. RN evaluating patient at bedside.
--- NOTE | 2019-10-09 12:18 | NUR ---
84 Y/O JC FROM [facility]. PER EMS PT NOT SEEN NORMAL IN FACILITY. PER EMS "ACTING DIFFERENT, NOT SELF". MORE CONFUSED THAN NORMAL. PT ALERT/AWAKE/CALM. FOLLOWS SIMPLE COMMANDS. PUPILS PERRLA. A/OXO. A: SEE LIST FROM FACILITY HX: DEMENTIA RX: SEE LIST FROM FACILITY
--- NOTE | 2019-10-09 13:00 | NUR ---
REPORT GIVEN TO DYLON ORTIZ FOR CONTINUITY OF CARE
--- NOTE | 2019-10-09 13:52 | NUR ---
CXR BEING COMPLETED AT BEDSIDE
--- NOTE | 2019-10-09 14:02 | NUR ---
ATTEMPTED TO GET URINE SAMPLE FROM PT, UNABLE TO VOID. OFFERED PT CUP OF WATER, WILL TRY AGAIN.
[2019-10-09 14:06] LABS: BASOPHILS % (AUTO) 0.8 % (0.0-2.0); EOSINOPHILS % (AUTO) 0.7 % (0.0-4.0); HEMATOCRIT 40.8 % (36-52); HEMOGLOBIN 13.3 g/dL (12.0-18.0); LYMPHOCYTES % (AUTO) 17.3 % (20.5-51.1); MEAN CORPUSCULAR HEMOGLOBIN 32 pg (27-31); MEAN CORPUSCULAR HGB CONC 33 g/dL (33-37); MEAN CORPUSCULAR VOLUME 99.3 fL (80-94); MONOCYTES # (AUTO) 0.4 K/uL (0.8-1.0); NEUTROPHILS # (AUTO) 4.4 K/uL (1.8-7.7); NEUTROPHILS % (AUTO) 74.2 % (42.2-75.2); PLATELET COUNT (AUTO) 175 K/uL (140-450); RED BLOOD CELL COUNT(AUTO) 4.11 MIL/uL (4.20-6.10); RED CELL DISTRIBUTION WIDTH 15.4 % (11.6-13.7); WHITE BLOOD COUNT (AUTO) 5.9 K/uL (4.8-10.8)
[2019-10-09 14:30] LABS: ALBUMIN 3.5 g/dL (3.4-5.0); ANION GAP 13.8 (8-16); ASPARTATE AMINOTRANSFERASE 13 U/L (15-37); CARBON DIOXIDE 27.1 mmol/L (21-32); CHLORIDE 102 mmol/L (98-107); CREATININE 1.3 mg/dL (0.7-1.3); GLUCOSE 129 mg/dL (74-106); POTASSIUM 3.9 mmol/L (3.5-5.1); SODIUM SERUM 139 mmol/L (136-145); TOTAL BILIRUBIN 0.8 mg/dL (0.0-1.0); UREA NITROGEN, BLOOD 26 mg/dL (7-18)
[2019-10-09] MEDS ORDERED: ONDANSETRON 4 MG/2 ML VIAL IM/IVP PRN (15:30)
[2019-10-09] MEDS ORDERED: HYDROcodone/APAP 7.5/325 MG 1 TAB PO PRN (15:30)
[2019-10-09] MEDS: NACL 0.9% 1,000 ML IV SCH ×2 (15:30→22:30)
[2019-10-09] MEDS ORDERED: DOCUSATE SODIUM 100 MG GELCAP PO PRN (15:30)
--- NOTE | 2019-10-09 15:33 | NUR ---
PT AGREED TO STRAIGHT CATH PROCEDURE WITH EXPLANATION, SUCCESSFULLY PERFORMED BY [facility] CLINICAL INSTRUCTOR AND STUDENT, PT ABLE TO TOLERATE PROCEDURE. APPROX 200ML CLEAR YELLOW URINE, URINE DIP PERFORMED, UA SENT TO LAB.
[2019-10-09 16:40] LABS: CHOL/HDL RATIO 3.1 (1-4.5); MAGNESIUM 1.9 mg/dL (1.8-2.4); PHOSPHORUS 2.7 mg/dL (2.5-4.9); THYROID STIMULATING HORMONE 4.17 uIU/mL (0.34-3.74)
[2019-10-09 16:43] LABS: PROTHROMBIN TIME 9.9 secs (10.8-13.4)
[2019-10-09] MEDS ORDERED: FERR325E14 PO (16:45)
[2019-10-09 17:00] VITALS: BP 144/70
--- NOTE | 2019-10-09 17:02 | NUR ---
Patient will be admitted to care of [facility]. Admited to [facility]. Will go to room 123a. Belongings list completed. Report to THERESE ORTIZ.
[2019-10-09 17:38] LABS: BILIRUBIN,URINE NEGATIVE (NEGATIVE); BLOOD, URINE 3+ (NEGATIVE); COLOR,URINE YELLOW (YELLOW); LEUKOCYTE ESTERASE ,URINE TRACE (NEGATIVE); NITRITE, URINE NEGATIVE (NEGATIVE); UGLUCOSE NEGATIVE (NEGATIVE)
[2019-10-09 17:39] LABS: APPEARANCE,URINE HAZY (CLEAR)
[2019-10-09 18:01] LABS: RBC,URINE >100 /HPF (0-5); WBC,URINE 20-60 /HPF (0-5)
[2019-10-09] MEDS ORDERED: DONEPEZIL 10 MG TAB ONE (18:31)
[2019-10-09] MEDS: DONEPEZIL 10 MG TAB PO SCH (18:34)
--- NOTE | 2019-10-09 19:30 | NUR ---
RECIEVED PT AAOX1 - VERY CONFUSE - UP AND DOWN ON THE BED 0 W/O IV SITE =- PULLED OUT BY PT 3X , HIGHLY FALL RISK - ON SAFETY / FALL PRECAUTION PROTOCOL - BED ALARM ON . POC DISCUASSED BUT POOR UNDERSTANDING DUE TO MENTAL STATU S - S2 PRECAUTION . WILL CONT. ADM. ASSESSMENT AND AND MONITOR. Addendum: 10/10/19 at 0158 by Columba Moore RN ON SAFETY / FALL PRECAUTION PROTOCOL - BED ALARM ON - CALL LIGHT WITHIN REACH.
[2019-10-09 20:00] VITALS: BP 110/69
--- NOTE | 2019-10-09 20:00 | NUR ---
REFER TO NAH[facility] - FOR POSSIBLE RESTRAIN AND FURTHER ORDERS FOR CONFUSION - WAITING THE ORDERS.
--- NOTE | 2019-10-09 20:20 | NUR ---
RESTRAINT THE PT. W/ SOFT WRIST RESTRAINT ORDERED. - WILL CONT. TO MONITOR. - THE PT SKIN IS EASILY BRUISING - THERE IS REDNESS IN THE LOWER ARM ON THE LEFT PRIOR THE APPLICATION OF RESTRAINT.
[2019-10-09] MEDS: MEMANTINE 10 MG TAB PO SCH (22:18)
--- NOTE | 2019-10-09 22:30 | NUR ---
IV RE INSERTED . PROCEDURE TOLERATED WELL - W/ MINIMAL BLEEDING.- WILL CONT. TO MONITOR.
[2019-10-10] VITALS: BP 111/82
--- NOTE | 2019-10-10 | NUR ---
MADE ROUNDS. NO S/SXS OF ACUTE DISTRESS NOTED AT THIS TIME. WILL CONT. TO MONITOR.
--- NOTE | 2019-10-10 02:00 | NUR ---
MADE ROUNDS - NO S/SXS OF ACUTE DISTRESS NOTED AT THIS TIME . WILL CONT. TO MONITOR.
[2019-10-10 04:00] VITALS: BP 110/76
--- NOTE | 2019-10-10 06:00 | NUR ---
INFORMED DR. RAMOS REGARDING NO AVAILABLE STAFF TO SIT A SITTER FOR THE PT. - WAITING FOR REVISION OF ORDER ABOUT SITTER.
--- NOTE | 2019-10-10 07:30 | NUR ---
ENDORSED TO NOD WITH STABLE CONDITION. ROCEPHIN TO BE STARTED.
--- NOTE | 2019-10-10 07:31 | NUR ---
RECEIVED BEDSIDE REPORT FROM AGRICULTURAL SERVICE WORKER NURSE. PATIENT IS AWAKE, ALERT AND ORIENTEDX1. NO SIGNS OF DISTRESS ON RA. SKIN IS INTACT. IV ON L FA 22G INFUSING NS AT 60. CLEAN, DRY AND INTACT. PATIENT CAN AMBULATE W ASSIST W WALKER. FALL RISK PROTOCOL IN PLACE. SEIZURE PRECAUTIONS. CALL LIGHT WITHIN REACH. WILL CONTINUE TO MONITOR THE PATIENT. PATIENT PULLS OUT LINES, BUE WRIST RESTRAINTS ON PATIENT.
[2019-10-10 08:00] VITALS: BP 116/71
--- NOTE | 2019-10-10 08:49 | NUR ---
PATIENT HAS BEEN SCREENED AND CATEGORIZED MODERATE NUTRITION RISK. PATIENT WILL BE SEEN WITHIN 3-5 DAYS OF ADMISSION. 10/12/19 10/14/[address]
--- NOTE | 2019-10-10 09:00 | NUR ---
PATIENT IN NO DISTRESS. WILL CONTINUE TO MONITOR THE PATIENT.
[2019-10-10 09:04] LABS: BASOPHILS % (AUTO) 0.5 % (0.0-2.0); EOSINOPHILS % (AUTO) 0.6 % (0.0-4.0); HEMATOCRIT 37.3 % (36-52); HEMOGLOBIN 12.3 g/dL (12.0-18.0); LYMPHOCYTES # (AUTO) 1.3 K/uL (2.0-11.5); LYMPHOCYTES % (AUTO) 17.8 % (20.5-51.1); MEAN CORPUSCULAR HEMOGLOBIN 32 pg (27-31); MEAN CORPUSCULAR HGB CONC 33 g/dL (33-37); MEAN CORPUSCULAR VOLUME 98.2 fL (80-94); MONOCYTES # (AUTO) 0.6 K/uL (0.8-1.0); MONOCYTES % (AUTO) 8.2 % (1.7-9.3); NEUTROPHILS # (AUTO) 5.2 K/uL (1.8-7.7); NEUTROPHILS % (AUTO) 72.9 % (42.2-75.2); PLATELET COUNT (AUTO) 169 K/uL (140-450); RED CELL DISTRIBUTION WIDTH 14.8 % (11.6-13.7); WHITE BLOOD COUNT (AUTO) 7.1 K/uL (4.8-10.8)
[2019-10-10] MEDS ORDERED: CRUSHER, PILL MC ONE (10:05)
[2019-10-10] MEDS: ECOTRIN 81 MG TABEC PO SCH (10:12)
[2019-10-10] MEDS: DONEPEZIL 10 MG TAB PO SCH ×2 (10:13→18:12)
[2019-10-10] MEDS: ALLOPURINOL 300 MG TAB PO SCH (10:13)
[2019-10-10] MEDS: FINASTERIDE 5 MG TAB PO SCH (10:14)
[2019-10-10] MEDS: PANTOPRAZOLE 40 MG TABEC PO SCH (10:14)
[2019-10-10] MEDS: MONTELUKAST SODIUM 10 MG TAB PO SCH (10:14)
[2019-10-10] MEDS: MEMANTINE 10 MG TAB PO SCH ×2 (10:14→20:42)
[2019-10-10] MEDS: LACTOBACILLUS RHAMNOSUS GG 1 EACH CAP PO SCH (10:15)
--- NOTE | 2019-10-10 11:10 | NUR ---
PATIENT IN NO DISTRESS. WILL CONTINUE TO MONITOR THE PATIENT
[2019-10-10 11:58] LABS: ANION GAP 13.4 (8-16); CARBON DIOXIDE 24.5 mmol/L (21-32); CHLORIDE 105 mmol/L (98-107); CREATININE 1.2 mg/dL (0.7-1.3); GLUCOSE 107 mg/dL (74-106); POTASSIUM 3.9 mmol/L (3.5-5.1); SODIUM SERUM 139 mmol/L (136-145); UREA NITROGEN, BLOOD 26 mg/dL (7-18)
[2019-10-10] MEDS: CLINDAMYCIN 600 MG in DEXTROSE 5% 50 ML IV SCH ×2 (13:51→20:42)
--- NOTE | 2019-10-10 13:56 | NUR ---
ADMINISTERED MEDS. PATIENT TOLERATED WELL. NO SIGNS OF DISTRESS. EDUCATED ON MEDS. PATIENT UNABLE TO VERBALIZE UNDERSTANDING. CONFUSED AT BASELINE.
--- NOTE | 2019-10-10 15:10 | NUR ---
PATIENT SLEEPING. NO SIGNS OF DISTRESS. WILL CONTINUE TO MONITOR THE PATIENT
[2019-10-10 16:00] VITALS: BP 100/68
--- NOTE | 2019-10-10 17:10 | NUR ---
PATIENT LAYING IN BED. NO SIGNS OF DISTRESS. WILL CONTINUE TO MONITOR THE PATIENT
--- NOTE | 2019-10-10 18:14 | NUR ---
ADMINISTERED MEDS. PATIENT TOLERATED WELL. EDUCATED ON MED. PATIENT CONFUSED. WILL CONTINUE TO MONITOR
--- NOTE | 2019-10-10 19:05 | NUR ---
GAVE BEDSIDE REPORT TO UNIT CLERK NURSE. PATIENT ENDORSED IN STABLE CONDITION
--- NOTE | 2019-10-10 19:08 | NUR ---
RECEIVED PATIENT IN STABLE CONDITION FROM AM NURSE. [facility] NO C/O PAIN. NO S/SX ACUTE DISTRESS. IV SITE 22G CLEAN/DRY/INTACT. INFUSING IV FLUIDS WELL. SAFETY PRECAUTIONS IN PLACE. BED IN LOWEST POSITION. YELLOW GOWN, YELLOW SOCKS AND YELLOW WRISTBAND IN PLACE. BED IN LOWEST POSITION. CALL LIGHT WITHIN REACH. WILL CONTINUE TO MONITOR.
[2019-10-10] MEDS ORDERED: CLINDAMYCIN 600 MG/4 ML VIAL ONE (20:38)
[2019-10-10] MEDS: OLANZapine 2.5 MG TAB PO SCH (20:42)
--- NOTE | 2019-10-10 21:13 | NUR ---
PATIENT AWAKE, WATCHING TV. NO C/O PAIN. NO S/SX ACUTE DISTRESS. CALL LIGHT WITHIN REACH. WILL CONTINUE TO MONITOR.
--- NOTE | 2019-10-10 23:16 | NUR ---
MADE ROUNDS. NO S/SX ACUTE DISTRESS. CALL LIGHT WITHIN REACH. WILL CONTINUE TO MONITOR.
--- NOTE | 2019-10-11 01:55 | NUR ---
NO S/SX ACUTE DISTRESS. NO C/O PAIN. PATIENT CLEAN/DRY. CALL LIGHT WITHIN REACH. WILL CONTINUE TO MONITOR.
[2019-10-11] MEDS ORDERED: CLINDAMYCIN 600 MG/4 ML VIAL ONE (04:38)
[2019-10-11] MEDS: CLINDAMYCIN 600 MG in DEXTROSE 5% 50 ML IV SCH ×3 (04:48→20:59)
--- NOTE | 2019-10-11 07:30 | NUR ---
RECEIVED PT ON BED AAOX1, CONFUSED ORIENTED TO NAME ONLY. NO SOB NOTED. NO C/O PAIN AT THIS TIME. IV TO LEFT FOREARM PATENT AND INTACT. CHEST CLEAR, ABDOMEN SOFT, SINA SOUNDS PRESENT. BRUISES NOTED ON BILATERAL UPPER EXTREMITIES, OTHERWISE SKIN INTACT. WITH BILATERAL SOFT WRIST RESTRAINTS. PT IS STILL TRYING TO GET OUT OF BED AND PULLING OUT IV'S. BED ON LOW POSITION WITH 2 SIDE RAILS RAISED UP. WILL REPOSITION PT Q2HRS. CALL LIGHT WITHIN REACH. WILL CONTINUE TO MONITOR PT.
--- NOTE | 2019-10-11 07:33 | NUR ---
ENDORSED PATIENT IN STABLE CONDITION TO AM SHIFT NURSE DARI.
[2019-10-11 08:00] VITALS: BP 144/73
[2019-10-11] MEDS: PANTOPRAZOLE 40 MG TABEC PO SCH (09:43)
[2019-10-11] MEDS: DONEPEZIL 10 MG TAB PO SCH ×2 (09:43→18:43)
[2019-10-11] MEDS: LACTOBACILLUS RHAMNOSUS GG 1 EACH CAP PO SCH (09:43)
[2019-10-11] MEDS: MONTELUKAST SODIUM 10 MG TAB PO SCH (09:44)
[2019-10-11] MEDS: ALLOPURINOL 300 MG TAB PO SCH (09:44)
[2019-10-11] MEDS: MEMANTINE 10 MG TAB PO SCH ×2 (09:44→20:59)
[2019-10-11] MEDS: FINASTERIDE 5 MG TAB PO SCH (09:44)
[2019-10-11] MEDS: ECOTRIN 81 MG TABEC PO SCH (09:44)
[2019-10-11] MEDS: NACL 0.9% 1,000 ML IV SCH (09:46)
--- NOTE | 2019-10-11 10:30 | NUR ---
PHYSICAL THERAPY ON GOING AT THE BEDSIDE.
[2019-10-11 12:00] VITALS: BP 119/63
--- NOTE | 2019-10-11 14:25 | NUR ---
PT RESTING IN BED. NO SOB NOTED. NO SIGNS OF PAIN.
[2019-10-11 14:27] LABS: BASOPHILS % (AUTO) 0.5 % (0.0-2.0); EOSINOPHILS # (AUTO) 0.1 K/uL (0-0.4); EOSINOPHILS % (AUTO) 1.2 % (0.0-4.0); HEMATOCRIT 35.8 % (36-52); HEMOGLOBIN 11.7 g/dL (12.0-18.0); LYMPHOCYTES # (AUTO) 1.1 K/uL (2.0-11.5); LYMPHOCYTES % (AUTO) 16.6 % (20.5-51.1); MEAN CORPUSCULAR HEMOGLOBIN 32 pg (27-31); MEAN CORPUSCULAR HGB CONC 33 g/dL (33-37); MEAN CORPUSCULAR VOLUME 98.2 fL (80-94); MONOCYTES # (AUTO) 0.7 K/uL (0.8-1.0); MONOCYTES % (AUTO) 10.6 % (1.7-9.3); NEUTROPHILS # (AUTO) 4.9 K/uL (1.8-7.7); NEUTROPHILS % (AUTO) 71.1 % (42.2-75.2); PLATELET COUNT (AUTO) 150 K/uL (140-450); RED BLOOD CELL COUNT(AUTO) 3.65 MIL/uL (4.20-6.10); RED CELL DISTRIBUTION WIDTH 14.9 % (11.6-13.7); WHITE BLOOD COUNT (AUTO) 6.9 K/uL (4.8-10.8)
[2019-10-11 14:53] LABS: ANION GAP 11.7 (8-16); CARBON DIOXIDE 24.2 mmol/L (21-32); CHLORIDE 103 mmol/L (98-107); CREATININE 1.2 mg/dL (0.7-1.3); GLUCOSE 116 mg/dL (74-106); POTASSIUM 3.9 mmol/L (3.5-5.1); SODIUM SERUM 135 mmol/L (136-145); UREA NITROGEN, BLOOD 25 mg/dL (7-18)
[2019-10-11 16:00] VITALS: BP 102/85
--- NOTE | 2019-10-11 16:55 | NUR ---
PT AWAKE, SON AT THE BEDSIDE. NO COMPLAINTS MADE.
--- NOTE | 2019-10-11 18:00 | NUR ---
PT PULLED OUT PRESENT IV WHILE BEING REPOSITIONED. ESTABLISHED A NEW IV LINE ON LT HAND WITH GAUGE 22.
--- NOTE | 2019-10-11 19:24 | NUR ---
PT AWAKE. NO SOB NOTED. NO SIGNS OF PAIN. ENDORSED TO NEXT SHIFT NURSE FOR CONTINUITY OF CARE.
--- NOTE | 2019-10-11 19:25 | NUR ---
RECEIVED PT IN STABLE CONDITION FROM AM NURSE FOR CONTINUITY OF CARE. AWAKE,BUT [id number]. MED SURG PT. WITH NO S/S OF ANY DISCOMFORT NOR PAIN NOTED. BEDREST. WITH IVF INFUSING WELL ON THE LT HAND G#22 . CLEAR AND PATENT. WITH EDWARD SOFT WRIST RESTRAINT DUE TO TRYING TO PULL OUT TUBINGS . INCONTINENT . BED ON LOW POSITION. FREQ ROUNDS NEEDED. SIDE RAILS UP X3. BED ALARM ON. CALL LIGHT PLACED WITHIN EASY REACH. WILL CONTINUE TO MONITOR.
[2019-10-11] MEDS: OLANZapine 2.5 MG TAB PO SCH (20:59)
--- NOTE | 2019-10-11 21:00 | NUR ---
ABLE TO TAKE DUE MEDS WITH APPLESAUCE. TOLERATED WELL. STILL REMAINS CONFUSED.
--- NOTE | 2019-10-11 23:00 | NUR ---
PT REMAINS TO BE CONFUSED. SAFETY PRECAUTIONS ENFORCED. WILL CONTINUE TO MONITOR.
[2019-10-12 00:19] VITALS: BP 114/66
--- NOTE | 2019-10-12 01:00 | NUR ---
MADE ROUNDS. PT CONFUSED. BILATERAL SOFT WRIST RESTRAINT RELEASE FOR 15 MIN. BLOOD CIRCULATION GOOD.
--- NOTE | 2019-10-12 03:30 | NUR ---
MADE ROUNDS. PT IS AWAKE. STILL CONFUSED. IVF INFUSING WELL.
[2019-10-12] MEDS: CLINDAMYCIN 600 MG in DEXTROSE 5% 50 ML IV SCH ×3 (04:53→20:19)
--- NOTE | 2019-10-12 05:00 | NUR ---
ASLEEP. BUT MOVE ARMS AT TIMES. NO S/S OF ANY DISCOMFORT NOTED.
[2019-10-12 06:14] LABS: BASOPHILS % (AUTO) 0.6 % (0.0-2.0); EOSINOPHILS # (AUTO) 0.1 K/uL (0-0.4); EOSINOPHILS % (AUTO) 1.7 % (0.0-4.0); HEMATOCRIT 38.6 % (36-52); HEMOGLOBIN 12.7 g/dL (12.0-18.0); LYMPHOCYTES # (AUTO) 1.8 K/uL (2.0-11.5); LYMPHOCYTES % (AUTO) 23.2 % (20.5-51.1); MEAN CORPUSCULAR HEMOGLOBIN 32 pg (27-31); MEAN CORPUSCULAR HGB CONC 33 g/dL (33-37); MEAN CORPUSCULAR VOLUME 97.9 fL (80-94); MONOCYTES # (AUTO) 0.7 K/uL (0.8-1.0); MONOCYTES % (AUTO) 9.6 % (1.7-9.3); NEUTROPHILS # (AUTO) 5.1 K/uL (1.8-7.7); NEUTROPHILS % (AUTO) 64.9 % (42.2-75.2); PLATELET COUNT (AUTO) 179 K/uL (140-450); RED BLOOD CELL COUNT(AUTO) 3.94 MIL/uL (4.20-6.10); RED CELL DISTRIBUTION WIDTH 15.1 % (11.6-13.7); WHITE BLOOD COUNT (AUTO) 7.8 K/uL (4.8-10.8)
[2019-10-12 07:09] LABS: ANION GAP 11.4 (8-16); CARBON DIOXIDE 26.8 mmol/L (21-32); CHLORIDE 102 mmol/L (98-107); CREATININE 1.1 mg/dL (0.7-1.3); GLUCOSE 107 mg/dL (74-106); POTASSIUM 4.2 mmol/L (3.5-5.1); SODIUM SERUM 136 mmol/L (136-145); UREA NITROGEN, BLOOD 23 mg/dL (7-18)
--- NOTE | 2019-10-12 07:25 | NUR ---
ENDORSED PT IN STABLE CONDITION TO AM NURSE.
--- NOTE | 2019-10-12 07:25 | NUR ---
RECEIVED REPORT FROM COUNTRY PRINTER APPRENTICE NURSE FOR CONTINUITY OF CARE. PATIENT IS RESTING IN BED, SOFT RESTRAINTS INTACT, RUNNING NS AT 40 ML/HR. ALOC, AAOX1. WILL CONTINUE TO MONITOR.
[2019-10-12 08:00] VITALS: BP 126/78
[2019-10-12] MEDS: NACL 0.9% 1,000 ML IV SCH (08:11)
[2019-10-12] MEDS: LACTOBACILLUS RHAMNOSUS GG 1 EACH CAP PO SCH (08:15)
[2019-10-12] MEDS: FINASTERIDE 5 MG TAB PO SCH (08:15)
[2019-10-12] MEDS: PANTOPRAZOLE 40 MG TABEC PO SCH (08:15)
[2019-10-12] MEDS: ECOTRIN 81 MG TABEC PO SCH (08:15)
[2019-10-12] MEDS: MONTELUKAST SODIUM 10 MG TAB PO SCH (08:16)
[2019-10-12] MEDS: MEMANTINE 10 MG TAB PO SCH ×2 (08:16→20:20)
[2019-10-12] MEDS: DONEPEZIL 10 MG TAB PO SCH ×2 (08:16→18:35)
[2019-10-12] MEDS: ALLOPURINOL 300 MG TAB PO SCH (09:00)
[2019-10-12 09:01] LABS: MAGNESIUM 1.8 mg/dL (1.8-2.4); PHOSPHORUS 3.3 mg/dL (2.5-4.9)
--- NOTE | 2019-10-12 10:00 | NUR ---
PATIENT IS RESTING IN BED, TOLERATED MEDICATIONS WELL, PHARMACY IS OUT OF ALLOPURINOL 300 MG. CONFUSED, AAOX1. BED IS IN LOW POSITION, CALL LIGHT ON AND WITHIN REACH. WILL CONTINUE TO MONITOR.
--- NOTE | 2019-10-12 12:40 | NUR ---
PATIENT IS RESTING IN BED, CALL LIGHT ON AND WITHIN REACH. WILL CONTINUE TO MONITOR.
--- NOTE | 2019-10-12 14:47 | NUR ---
DC PLANN[age] YRS OLD MALE PATIENT WAS ADMITTED FROM [facility] WITH A DX OF ALOC . PT HAS A HX OF SEIZURE, GERD GOUT, ALZHEIMER DEMENTIA BPH AND SIGMOID DIVERTICULOSIS . CT HEAD SHOWED CHRONIC MICROVASCULAR CHANGES LACTIC 2.3 CXR SHOWED MINIMAL BIBASILAR ATELECTASIS , CONTINUE HOME MEDS PT EVAL ORDERED . CONTINUE WITH ROCEPHIN AND CLINDAMYCIN IV ABX FOR ASPIRATION PNA AND UTI . URINE CULTURE PENDING. DC PLAN TO GO TO [facility] (ASSISTED LIVING) WHEN STABLE. CM TO FOLLOW. Addendum: 10/13/19 at 1346 by Ree Coleman CM DC PLANNING PT IS STABLE FOR DISCHARGE WITH HOME HEALTH FOR PHYSICAL THERAPY. PT IS WITH [facility] WILL FAXED THE REQUEST TO [facility] [phone] Addendum: 10/13/19 at 1347 by Sveta Walker I faxed patient's clinical information to [facility] he has been receiving services from prior to hospitalization, [facility] , fax . Addendum: 10/13/19 at 1540 by Sveta DAVIS Almas Mcdaniel from [facility], they will send a nurse to [facility] tomorrow to resume services.
[2019-10-12 16:00] VITALS: BP 104/62
--- NOTE | 2019-10-12 19:25 | NUR ---
REPORT GIVEN TO PENSION MANAGER NURSE FOR CONTINUATION OF CARE.
--- NOTE | 2019-10-12 19:26 | NUR ---
RECEIVED PT IN STABLE CONDITION FROM AM NURSE. AWAKE,ALERT AND ORIENTED X1-2. MED SURG PT. BEDREST. STILL WITH CONFUSION. WITH IVF INFUSING WELL ON THE LT HAND G#22. CLEAR AND PATENT. BED ON LOW POSITION. FREQ ROUNDS NEEDED. SIDE RIALS UP X2. BED ALARM ON. CALL LIGHT PLACED WITHIN EASY REACH. WILL CONTINUE TO MONITOR.
[2019-10-12] MEDS: OLANZapine 2.5 MG TAB PO SCH (20:20)
--- NOTE | 2019-10-12 21:00 | NUR ---
PT ABLE TO TOLERATE NIGHT DUE MEDS. INCONTINENT OF URINE. CLEANED AND KEPT DRY. REPOSITIONED FOR COMFORT AFTER BEING CHANGED.
--- NOTE | 2019-10-12 23:00 | NUR ---
MADE ROUNDS PT SLEEPING. NO S/S OF ANY DISCOMFORT NOTED.
[2019-10-13 00:45] VITALS: BP 119/73
--- NOTE | 2019-10-13 00:45 | NUR ---
VITAL SIGNS STABLE. NO S/S OF ANY PAIN NOR DISTRESS NOTED.
--- NOTE | 2019-10-13 02:00 | NUR ---
PT REPOSITIONED FOR COMFORT AFTER BEING CLEANED AND KEPT DRY.
[2019-10-13] MEDS: CLINDAMYCIN 600 MG in DEXTROSE 5% 50 ML IV SCH ×2 (04:58→13:13)
--- NOTE | 2019-10-13 05:00 | NUR ---
PT HAS BEEN CLEANED AND KEPT DRY. STILL WITH PERIODS OF CONFUSION.
[2019-10-13] MEDS: NACL 0.9% 1,000 ML IV SCH (07:35)
--- NOTE | 2019-10-13 07:35 | NUR ---
WILL ENDORSE PT IN STABLE CONDITION TO AM NURSE.
[2019-10-13 08:00] VITALS: BP 127/63
[2019-10-13] MEDS ORDERED: AZIT250T3 PO (10:16)
[2019-10-13] MEDS ORDERED: OLAN2.5T40 PO (10:16)
--- NOTE | 2019-10-13 10:25 | NUR ---
RECEIVED BEDSIDE REPORT FROM CHILD PROTECTIVE SERVICES SOCIAL WORKER NURSE. PT IS IN BED, NO S/S OF DISTRESS, NO SOB. PT IS ON ROOM AIR, SKIN INTACT. IV SJTE L HAND 22 G, INFUSING NS 40 ML/HR. FALL PRECAUTIONS IN PLACE. CALL LIGHT IS WITHIN REACH. WILL CONTINUE TO MONITOR.
--- NOTE | 2019-10-13 10:45 | NUR ---
AM MEDS ADMINISTERED CRUSHED WITH APPLE SAUCE, PT TOLERATED WELL.
[2019-10-13] MEDS: LACTOBACILLUS RHAMNOSUS GG 1 EACH CAP PO SCH (11:15)
[2019-10-13] MEDS: MEMANTINE 10 MG TAB PO SCH (11:15)
[2019-10-13] MEDS: PANTOPRAZOLE 40 MG TABEC PO SCH (11:16)
[2019-10-13] MEDS: DONEPEZIL 10 MG TAB PO SCH (11:16)
[2019-10-13] MEDS: FINASTERIDE 5 MG TAB PO SCH (11:16)
[2019-10-13] MEDS: ECOTRIN 81 MG TABEC PO SCH (11:16)
[2019-10-13] MEDS: MONTELUKAST SODIUM 10 MG TAB PO SCH (11:16)
[2019-10-13] MEDS: ALLOPURINOL 300 MG TAB PO SCH (11:16)
--- NOTE | 2019-10-13 13:14 | NUR ---
PT IS RESTING COMFORTABLY, NO S/S OF DISTRESS. NO SOB. IV CLEOCIN INFUSING.
--- NOTE | 2019-10-13 13:58 | NUR ---
CALLED [facility] TO SET UP TRANSPORTATION FOR PT, THE BRUSH SANDER SAID THAT THE TRANSPORTATION STAFF IS PLAYING BINGO WITH THE RESIDENTS RIGHT NOW, AND SHE WILL CALL US BACK WHEN SHE IS ABLE TO COMMUNICATE WITH THE TRANSPORT STAFF AND HAVE A TRANSPORT TIME. I GAVE HER OUR PHONE NUMBER.
--- NOTE | 2019-10-13 15:02 | NUR ---
PT CHANGED AND READY TO BE PICKED UP. MANAGER OF INTERNAL TIME IS SET FOR 15:00 PER [facility]
--- NOTE | 2019-10-13 16:50 | NUR ---
PT WAS PICKED UP BY [facility]. DC INSTRUCTIONS AND PRESCRIPTION WAS GIVEN TO PT. IV SITE AND WRIST BAND REMOVED.
== END 2019-10-13 17:00 | disposition home or self-care (01) | DRG 56 ==
LOC: MED 12:11 → MTU 15:33
PROVIDERS: ADMIT General Practice; ATTEND General Practice
DX: G30.9 Alzheimer's disease, unspecified (principal); G93.41 Metabolic encephalopathy; J69.0 Pneumonitis due to inhalation of food and vomit; F02.81 Dementia in other diseases classified elsewhere, unspecified severity, with behavioral disturbance; N39.0 Urinary tract infection, site not specified; K21.9 Gastro-esophageal reflux disease without esophagitis; M10.9 Gout, unspecified; N40.0 Benign prostatic hyperplasia without lower urinary tract symptoms; K57.30 Diverticulosis of large intestine without perforation or abscess without bleeding; Z87.442 Personal history of urinary calculi; Z87.440 Personal history of urinary (tract) infections; J45.909 Unspecified asthma, uncomplicated; Z79.899 Other long term (current) drug therapy
CPT/HCPCS: 36415; 70450; 71045; 80048; 80053; 81001; 82140; 82550; 83036; 83605; 83690; 83735; 83880; 84100; 84439; 84443; 84484; 85025; 85610; 85730; 87040; 87081; 87086; 93005; 97110; 97112; 97116; 97161-GP; 97530; 99285; C1758; J0696; J3490; J7030; J7060; Q0092